=== PATIENT | male | born 1940 | race Caucasian/White ===

== ENCOUNTER 2022-01-08 14:28 | Outpatient (CLI) | payer MEDICARE, BC, SELFPAY | END 2022-01-08 14:29 | disposition home or self-care (01) | LOC: CHSLAB 14:33 | PROVIDERS: PCP Specialist; Visit Provider Specialist | DX: C44.319 Basal cell carcinoma of skin of other parts of face (principal); L85.9 Epidermal thickening, unspecified | CPT/HCPCS: 88305 ==

== ENCOUNTER 2023-02-25 10:08 | Outpatient (CLI) | payer MEDICARE, SELFPAY | END 2023-02-25 10:09 | disposition home or self-care (01) | PROVIDERS: PCP Specialist; Visit Provider Specialist | DX: C44.319 Basal cell carcinoma of skin of other parts of face (principal) | CPT/HCPCS: 88305 ==

== ENCOUNTER 2023-07-29 13:32 | Outpatient (CLI) | payer MEDICARE, SELFPAY ==
--- NOTE | ~2023-07-29 | XR_ITS ---
XR chest 2V DATE: 07/29/2023 13:50 INDICATION: Pruritus. 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 Normal heart size. No hilar or mediastinal enlargement. No pulmonary infiltrate or consoli dation, pulmonary vascular congestion or pleural effusion or pneumothorax. Severe degenerative disc disease of the lower cervical spine Diffuse idiopathic skeletal hyperostosis. IMPRESSION: Status post sternotomy No active cardiopulmonary disease Reviewed, dictated and finalized at location L.
== END 2023-07-29 13:33 | disposition home or self-care (01) ==
LOC: CHSIMG 13:36
PROVIDERS: PCP Physician Assistant; Visit Provider Specialist
DX: L29.9 Pruritus, unspecified (principal); Z98.890 Other specified postprocedural states
CPT/HCPCS: 71046

== ENCOUNTER 2023-10-10 11:23 | Outpatient (CLI) | payer MEDICARE, SELFPAY ==
--- NOTE | ~2023-10-10 | XR_ITS ---
Left Knee Technique: AP, lateral, and sunrise views were obtained. Clinical History: Osteoarthritis Findings: No fracture or dislocation is seen. Osseous alignment is anatomic. Mild tricompartmental de generative change present. Soft tissues are unremarkable. No joint effusion is seen. Impression: Mild tricompartmental degenerative change. Reviewed, dictated and finalized at location . Impression: Mild tricompartmental degenerative change.
== END 2023-10-10 11:24 | disposition home or self-care (01) ==
PROVIDERS: PCP Physician Assistant; Visit Provider Orthopaedic Surgery
DX: M17.12 Unilateral primary osteoarthritis, left knee (principal)
CPT/HCPCS: 73564

== ENCOUNTER 2024-07-09 10:28 | Outpatient (CLI) | payer MEDICARE, SELFPAY | END 2024-07-09 10:29 | disposition home or self-care (01) | PROVIDERS: PCP Physician Assistant; Visit Provider Orthopaedic Surgery | DX: M17.12 Unilateral primary osteoarthritis, left knee (principal) | CPT/HCPCS: 73564 ==

== ENCOUNTER 2024-10-12 11:03 | Outpatient (CLI) | payer MEDICARE, SELFPAY ==
--- NOTE | 2024-10-12 | S_PTH ---
PATIENT: Roel Bocanegra LOC: [facility]#:[id number] AGE/SX: 84/M ROOM: RE10/12/[address]: Ashok Jett M.D. : 1940 BED: DIS: 10/12/2024 SPEC #: [id number] RECD: 10/12/24 14:19 STATUS: BILLIE REChrissy #: [id number] MARTINEZ: 10/12/24 00:[address]: Ashok Jett DEPT: [facility] Surgical RECD BY: Jcay Dienro MLT, ([facility]) Tissues: A - Skin Bx B - Skin Bx Procedures: Hematoxylin and Eosin Stain Gross and Microscopic Level 4
--- OUTSIDE RECORDS SUMMARY | 2024-10-12 11:23 | XMS_ITS | Encounter Summary ---
Author Organization [facility] Address 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
--- OUTSIDE RECORDS SUMMARY | 2024-10-12 11:23 | XMS_ITS | Encounter Summary ---
Author Organization [employer] Address 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
--- OUTSIDE RECORDS SUMMARY | 2024-10-12 11:23 | XMS_ITS | Encounter Summary ---
Author Organization [employer] Address 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
--- OUTSIDE RECORDS SUMMARY | 2024-10-12 11:23 | XMS_ITS | Encounter Summary ---
Author Organization [facility] Address 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 Gender Identity Not on file Sexual Orientation Not on file documented as of this encounter Plan of Treatment Not on file documented as of this encounter Procedures Procedure Name Priority Date/Time Associated Diagnosis Comments CBC WITH DIFFERENTIAL Routine 02/28/2006 6:26 AM CDT CBC WITH DIFFERENTIAL Routine 02/28/2006 6:26 AM CDT PROTIME-INR Routine 02/28/2006 5:00 AM CDT CBC WITH DIFFERENTIAL Routine 02/27/2006 5:15 AM CDT CBC WITH DIFFERENTIAL Routine 02/27/2006 5:15 AM CDT PROTIME-INR Routine 02/27/2006 5:15 AM CDT BASIC METABOLIC PANEL Routine 02/27/2006 5:15 AM CDT POC GLUCOSE Routine 02/26/2006 1:20 PM CDT POC GLUCOSE Routine 02/26/2006 6:33 AM CDT PT AND APTT Routine 02/26/2006 4:25 AM CDT CBC WITH DIFFERENTIAL Routine 02/26/2006 4:25 AM CDT CBC WITH DIFFERENTIAL Routine 02/26/2006 4:25 AM CDT BASIC METABOLIC PANEL Routine 02/26/2006 4:25 AM CDT POC GLUCOSE Routine 02/25/2006 9:54 PM CDT PT AND APTT Routine 02/25/2006 7:40 PM CDT CBC WITH DIFFERENTIAL Routine 02/25/2006 7:40 PM CDT CBC WITH DIFFERENTIAL Routine 02/25/2006 7:40 PM CDT BASIC METABOLIC PANEL Routine 02/25/2006 7:40 PM CDT POC, BLOOD GASES Routine 02/25/2006 5:15 PM CDT POC GLUCOSE Routine 02/25/2006 5:13 PM CDT PT AND APTT Routine 02/25/2006 4:56 PM CDT CBC WITH DIFFERENTIAL Routine 02/25/2006 4:56 PM CDT CBC WITH DIFFERENTIAL Routine 02/25/2006 4:56 PM CDT MAGNESIUM LEVEL Routine 02/25/2006 4:56 PM CDT BASIC METABOLIC PANEL Routine 02/25/2006 4:56 PM CDT POC, BLOOD GASES Routine 02/25/2006 3:25 PM CDT POC GLUCOSE Routine 02/25/2006 3:22 PM CDT POC, BLOOD GASES Routine 02/25/2006 2:23 PM CDT HEMOGLOBIN AND HEMATOCRIT Routine 02/18/2006 3:30 PM CDT BASIC METABOLIC PANEL Routine 02/18/2006 3:30 PM CDT documented in this encounter Results * (ABNORMAL) CBC WITH DIFFERENTIAL (02/28/2006 6:26 AM CDT) NEUTROPHILS 72(H) 45 - 70 % INTERFAC E SYSTEM LYMPHOCYTES 16 16 - 45 % INTERFAC E SYSTEM MONOCYTES 11 3 - 13 % INTERFACE SYSTEM EOSINOPHILS 2 0 - 7 % INTERFAC E SYSTEM BASOPHILS 0 0 - 2 % INTERFACE SYSTEM NEUTROPHIL ABSOLUTE 7.73(H) 1.90 - 7.00 K/uL INTERFACE SYSTEM LYMPHOCYTE ABSOLUTE 1.66 0.70 - 4.50 K/uL INTERFACE SYSTEM MONOCYTE ABSOLUTE 1.15 0.10 - 1.30 K/uL INTERFACE SYSTEM EOSINOPHIL ABSOLUTE 0.18 0.00 - 0.70 K/uL INTERFACE SYSTEM BASOPHILS ABSOLUTE 0.02 0.00 - 0.20 K/uL INTERFACE SYSTEM 02/28/2006 6:26 AM CDT Ashok Tapia MD HEMATOLOGY ORDERABLES Final Result INTERFACE SYSTEM Refer to clinic/hospital department * (ABNORMAL) CBC WITH DIFFERENTIAL (02/28/2006 6:26 AM CDT) WBC 10.7(H) 4.0 - 9.8 K/uL INTERFACE SYSTEM RBC 2.82(L) 4.50 - 5.40 M/uL INTERFACE SYSTEM HEMOGLOBIN 7.8(AA) 13.6 - 16.5 g/dL INTERFACE SYSTEM Comment:Persistent abnormal result HEMATOCRIT 23.7(AA) 40.0 - 48.0 % INTERFACE SYSTEM Comment:Persistent abnormal result MCV 84.0 82.0 - 99.0 fL INTERFACE SYSTEM MCH 27.7 27.2 - 32.6 pg INTERFACE SYSTEM MCHC 32.9 31.5 - 35.5 % INTERFACE SYSTEM RDW 15.4(H) 11.5 - 14.5 % INTERFACE SYSTEM RDW-STDEV 47.4 37.1 - 48.7 fL INTERFACE SYSTEM PLATELETS 169 140 - 350 K/uL INTERFACE SYSTEM MPV 11.6 9.3 - 12.4 fL INTERFACE SYSTEM 02/28/2006 6:26 AM CDT Ashok Tapia MD HEMATOLOGY ORDERABLES Final Result Performing Organization Address [facility] Phone Number INTERFACE SYSTEM Refer to clinic/hospital department * (ABNORMAL) PROTIME-INR (02/28/2006 5:00 AM CDT) PROTIME 40.5(H) 12.7 - 15.1 Seconds INTERFACE SYSTEM INR 4.1(H) 0.9 - 1.1 INTERFACE SYSTEM Comment: INR Therapeutic Range: Adult: 2.0 - 3.0 for pulmonary embolism or prophylaxis against venous thrombosis or systemic embolization. 2.0 - 3.0 for patients with tissue heart valves. 2.5 - 3.5 for patients with mechanical heart valves or post RI. Pediatric (12 years and under): 1.5 - 3.0 Although the target range in children is not well established , INR values of 1.5 - 3.0 are recommended for most patients. Higher values have been used in children with prosthetic cardiac valves and hereditary clotting disorders. (<3 days) therapeutic ranges have not been established. 02/28/2006 5:00 AM CDT Ashok Tapia MD HEMATOLOGY ORDERABLES Final Result Performing Organization Address [facility] Phone Number INTERFACE SYSTEM Refer to clinic/hospital department * (ABNORMAL) CBC WITH DIFFERENTIAL (02/27/2006 5:15 AM CDT) NEUTROPHILS 73(H) 45 - 70 % INTERFAC E SYSTEM LYMPHOCYTES 16 16 - 45 % INTERFAC E SYSTEM MONOCYTES 11 3 - 13 % INTERFACE SYSTEM EOSINOPHILS 0 0 - 7 % INTERFAC E SYSTEM BASOPHILS 0 0 - 2 % INTERFACE SYSTEM NEUTROPHIL ABSOLUTE 9.50(H) 1.90 - 7.00 K/uL INTERFACE SYSTEM LYMPHOCYTE ABSOLUTE 2.08 0.70 - 4.50 K/uL INTERFACE SYSTEM MONOCYTE ABSOLUTE 1.44(H) 0.10 - 1.30 K/uL INTERFACE SYSTEM EOSINOPHIL ABSOLUTE 0.05 0.00 - 0.70 K/uL INTERFACE SYSTEM BASOPHILS ABSOLUTE 0.01 0.00 - 0.20 K/uL INTERFACE SYSTEM 02/27/2006 5:15 AM CDT Ashok Tapia MD HEMATOLOGY ORDERABLES Final Result Performing Organization Address [facility] de Phone Number INTERFACE SYSTEM Refer to clinic/hospital department * (ABNORMAL) CBC WITH DIFFERENTIAL (02/27/2006 5:15 AM CDT) WBC 13.1(H) 4.0 - 9.8 K/uL INTERFACE SYSTEM RBC 2.74(L) 4.50 - 5.40 M/uL INTERFACE SYSTEM HEMOGLOBIN 7.9(AA) 13.6 - 16.5 g/dL INTERFACE SYSTEM Comment: Results called to estevan at 02/27/2006 6:08 AM and read back verified. Verified by repeat analysis. HEMATOCRIT 23.3(AA) 40.0 - 48.0 % INTERFACE SYSTEM MCV 85.0 82.0 - 99.0 fL INTERFACE SYSTEM MCH 28.8 27.2 - 32.6 pg INTERFACE SYSTEM MCHC 33.9 31.5 - 35.5 % INTERFACE SYSTEM RDW 15.5(H) 11.5 - 14.5 % INTERFACE SYSTEM RDW-STDEV 47.7 37.1 - 48.7 fL INTERFACE SYSTEM PLATELETS 154 140 - 350 K/uL INTERFACE SYSTEM MPV 12.0 9.3 - 12.4 fL INTERFACE SYSTEM 02/27/2006 5:15 AM CDT Ashok Tapia MD HEMATOLOGY ORDERABLES Final Result Performing Organization Address [facility] de Phone Number INTERFACE SYSTEM Refer to clinic/hospital department * (ABNORMAL) PROTIME-INR (02/27/2006 5:15 AM CDT) PROTIME 26.0(H) 12.7 - 15.1 Seconds INTERFACE SYSTEM INR 2.3(H) 0.9 - 1.1 INTERFACE SYSTEM Comment: INR Therapeutic Range: Adult: 2.0 - 3.0 for pulmonary embolism or prophylaxis against venous thrombosis or systemic embolization. 2.0 - 3.0 for patients with tissue heart valves. 2.5 - 3.5 for patients with mechanical heart valves or post RI. Pediatric (12 years and under): 1.5 - 3.0 Although the target range in children is not well established , INR values of 1.5 - 3.0 are recommended for most patients. Higher values have been used in children with prosthetic cardiac valves and hereditary clotting disorders. (<3 days) therapeutic ranges have not been established. 02/27/2006 5:15 AM CDT us Ashok Tapia MD HEMATOLOGY ORDERABLES Final Result Performing Organization Address [facility] Phone Number INTERFACE SYSTEM Refer to clinic/hospital department * (ABNORMAL) BASIC METABOLIC PANEL (02/27/2006 5:15 AM CDT) GLUCOSE 120(H) 65 - 99 mg/dL INTERFACE SYSTEM CREATININE 1.6(H) 0.5 - 1.3 mg/dL INTERFACE SYSTEM CALCIUM 7.8(L) 8.4 - 10.2 mg/dL INTERFACE SYSTEM BUN 28(H) 6 - 20 mg/dL INTERFACE SYSTEM SODIUM 133(L) 135 - 145 mmol/L INTERFACE SYSTEM POTASSIUM 3.9 3.5 - 4.9 mmol/L INTERFACE SYSTEM CHLORIDE 101 96 - 108 mmol/L INTERFACE SYSTEM CO2 27 22 - 30 mmol/L INTERFACE SYSTEM 02/27/2006 5:15 AM CDT Ashok Tapia MD CHEMISTRY ORDERABLES Final Result Performing Organization Address [facility] de Phone Number INTERFACE SYSTEM Refer to clinic/hospital department * (ABNORMAL) POC GLUCOSE (02/26/2006 1:20 PM CDT) GLUCOSE POC 167(H) 65 - 109 mg/dL INTERFACE SYSTEM 02/26/2006 1:20 PM CDT us Ashok Tapia MD POINT OF CARE TESTING Final Result Performing Organization Address [facility] de Phone Number INTERFACE SYSTEM Refer to clinic/hospital department * (ABNORMAL) POC GLUCOSE (02/26/2006 6:33 AM CDT) GLUCOSE POC 192(H) 65 - 109 mg/dL INTERFACE SYSTEM 02/26/2006 6:33 AM CDT Ashok Tapia MD POINT OF CARE TESTING Final Result Performing Organization Address [facility] Phone Number INTERFACE SYSTEM Refer to clinic/hospital department * (ABNORMAL) CBC WITH DIFFERENTIAL (02/26/2006 4:25 AM CDT) NEUTROPHILS 81(H) 45 - 70 % INTERFAC E SYSTEM LYMPHOCYTES 9(L) 16 - 45 % INTERFAC E SYSTEM MONOCYTES 10 3 - 13 % INTERFACE SYSTEM EOSINOPHILS 0 0 - 7 % INTERFAC E SYSTEM BASOPHILS 0 0 - 2 % INTERFACE SYSTEM NEUTROPHIL ABSOLUTE 9.26(H) 1.90 - 7.00 K/uL INTERFACE SYSTEM LYMPHOCYTE ABSOLUTE 1.00 0.70 - 4.50 K/uL INTERFACE SYSTEM MONOCYTE ABSOLUTE 1.10 0.10 - 1.30 K/uL INTERFACE SYSTEM EOSINOPHIL ABSOLUTE 0.00 0.00 - 0.70 K/uL INTERFACE SYSTEM BASOPHILS ABSOLUTE 0.01 0.00 - 0.20 K/uL INTERFACE SYSTEM 02/26/2006 4:25 AM CDT Ashok Tapia MD HEMATOLOGY ORDERABLES Final Result Performing Organization Address [facility] Phone Number INTERFACE SYSTEM Refer to clinic/hospital department * (ABNORMAL) CBC WITH DIFFERENTIAL (02/26/2006 4:25 AM CDT) WBC 11.4(H) 4.0 - 9.8 K/uL INTERFACE SYSTEM RBC 3.11(L) 4.50 - 5.40 M/uL INTERFACE SYSTEM HEMOGLOBIN 8.8(L) 13.6 - 16.5 g/dL INTERFACE SYSTEM HEMATOCRIT 26.6(L) 40.0 - 48.0 % INTERFACE SYSTEM MCV 85.5 82.0 - 99.0 fL INTERFACE SYSTEM MCH 28.3 27.2 - 32.6 pg INTERFACE SYSTEM MCHC 33.1 31.5 - 35.5 % INTERFACE SYSTEM RDW 15.0(H) 11.5 - 14.5 % INTERFACE SYSTEM RDW-STDEV 46.3 37.1 - 48.7 fL INTERFACE SYSTEM PLATELETS 161 140 - 350 K/uL INTERFACE SYSTEM MPV 11.3 9.3 - 12.4 fL INTERFACE SYSTEM 02/26/2006 4:25 AM CDT Ashok Tapia MD HEMATOLOGY ORDERABLES Final Result Performing Organization Address [facility] Phone Number INTERFACE SYSTEM Refer to clinic/hospital department * (ABNORMAL) BASIC METABOLIC PANEL (02/26/2006 4:25 AM CDT) GLUCOSE 156(H) 65 - 99 mg/dL INTERFACE SYSTEM CREATININE 1.2 0.5 - 1.3 mg/dL INTERFACE SYSTEM CALCIUM 7.8(L) 8.4 - 10.2 mg/dL INTERFACE SYSTEM BUN 21(H) 6 - 20 mg/dL INTERFACE SYSTEM SODIUM 137 135 - 145 mmol/L INTERFACE SYSTEM POTASSIUM 4.5 3.5 - 4.9 mmol/L INTERFACE SYSTEM CHLORIDE 107 96 - 108 mmol/L INTERFACE SYSTEM CO2 25 22 - 30 mmol/L INTERFACE SYSTEM 02/26/2006 4:25 AM CDT Ashok Tapia MD CHEMISTRY ORDERABLES Final Result Performing Organization Address [facility] Phone Number INTERFACE SYSTEM Refer to clinic/hospital department * (ABNORMAL) PT AND APTT (02/26/2006 4:25 AM CDT) PTT 28.6 24.4 - 36.4 Seconds INTERFACE SYSTEM Comment: PTT Therapeutic Range: Heparin Level PTT (seconds) <0.10 units/mL <53 0.10 - 0.30 units/mL 53 - 67 0.30 - 0.70 units/mL* 67 - 95* 0.70 - 1.00 units/mL 95 - 116 *corresponds to therapeutic range for unfractionated heparin PROTIME 15.8(H) 12.7 - 15.1 Seconds INTERFACE SYSTEM INR 1.2(H) 0.9 - 1.1 INTERFACE SYSTEM Comment: INR Therapeutic Range: Adult: 2.0 - 3.0 for pulmonary embolism or prophylaxis against venous thrombosis or systemic embolization. 2.0 - 3.0 for patients with tissue heart valves. 2.5 - 3.5 for patients with mechanical heart valves or post RI. Pediatric (12 years and under): 1.5 - 3.0 Although the target range in children is not well established , INR values of 1.5 - 3.0 are recommended for most patients. Higher values have been used in children with prosthetic cardiac valves and hereditary clotting disorders. (<3 days) therapeutic ranges have not been established. 02/26/2006 4:25 AM CDT Ashok Tapia MD HEMATOLOGY ORDERABLES Final Result Performing Organization Address [facility] Phone Number INTERFACE SYSTEM Refer to clinic/hospital department * (ABNORMAL) POC GLUCOSE (02/25/2006 9:54 PM CDT) GLUCOSE POC 143(H) 65 - 109 mg/dL INTERFACE SYSTEM 02/25/2006 9:54 PM CDT Ashok Tapia MD POINT OF CARE TESTING Final Result Performing Organization Address [facility] Phone Number INTERFACE SYSTEM Refer to clinic/hospital department * (ABNORMAL) CBC WITH DIFFERENTIAL (02/25/2006 7:40 PM CDT) NEUTROPHILS 88(H) 45 - 70 % INTERFAC E SYSTEM LYMPHOCYTES 6(L) 16 - 45 % INTERFAC E SYSTEM MONOCYTES 7 3 - 13 % INTERFACE SYSTEM EOSINOPHILS 0 0 - 7 % INTERFAC E SYSTEM BASOPHILS 0 0 - 2 % INTERFACE SYSTEM NEUTROPHIL ABSOLUTE 14.18(H) 1.90 - 7.00 K/uL INTERFACE SYSTEM LYMPHOCYTE ABSOLUTE 0.94 0.70 - 4.50 K/uL INTERFACE SYSTEM MONOCYTE ABSOLUTE 1.06 0.10 - 1.30 K/uL INTERFACE SYSTEM EOSINOPHIL ABSOLUTE 0.00 0.00 - 0.70 K/uL INTERFACE SYSTEM BASOPHILS ABSOLUTE 0.01 0.00 - 0.20 K/uL INTERFACE SYSTEM 02/25/2006 7:40 PM CDT Ashok Tapia MD HEMATOLOGY ORDERABLES Final Result Performing Organization Address [facility] de Phone Number INTERFACE SYSTEM Refer to clinic/hospital department * (ABNORMAL) CBC WITH DIFFERENTIAL (02/25/2006 7:40 PM CDT) WBC 16.2(H) 4.0 - 9.8 K/uL INTERFACE SYSTEM RBC 3.45(L) 4.50 - 5.40 M/uL INTERFACE SYSTEM HEMOGLOBIN 9.6(L) 13.6 - 16.5 g/dL INTERFACE SYSTEM HEMATOCRIT 29.4(L) 40.0 - 48.0 % INTERFACE SYSTEM MCV 85.2 82.0 - 99.0 fL INTERFACE SYSTEM MCH 27.8 27.2 - 32.6 pg INTERFACE SYSTEM MCHC 32.7 31.5 - 35.5 % INTERFACE SYSTEM RDW 14.8(H) 11.5 - 14.5 % INTERFACE SYSTEM RDW-STDEV 46.1 37.1 - 48.7 fL INTERFACE SYSTEM PLATELETS 166 140 - 350 K/uL INTERFACE SYSTEM MPV 11.4 9.3 - 12.4 fL INTERFACE SYSTEM 02/25/2006 7:40 PM CDT Ashok Tapia MD HEMATOLOGY ORDERABLES Final Result Performing Organization Address [facility] Phone Number INTERFACE SYSTEM Refer to clinic/hospital department * (ABNORMAL) BASIC METABOLIC PANEL (02/25/2006 7:40 PM CDT) GLUCOSE 152(H) 65 - 99 mg/dL INTERFACE SYSTEM CREATININE 1.1 0.5 - 1.3 mg/dL INTERFACE SYSTEM CALCIUM 8.1(L) 8.4 - 10.2 mg/dL INTERFACE SYSTEM BUN 18 6 - 20 mg/dL INTERFACE SYSTEM SODIUM 141 135 - 145 mmol/L INTERFACE SYSTEM POTASSIUM 4.5 3.5 - 4.9 mmol/L INTERFACE SYSTEM CHLORIDE 109(H) 96 - 108 mmol/L INTERFACE SYSTEM CO2 24 22 - 30 mmol/L INTERFACE SYSTEM 02/25/2006 7:40 PM CDT Ashok Tapia MD CHEMISTRY ORDERABLES Final Result Performing Organization Address [facility] de Phone Number INTERFACE SYSTEM Refer to clinic/hospital department * PT AND APTT (02/25/2006 7:40 PM CDT) PROTIME 15.0 12.7 - 15.1 Seconds INTERFACE SYSTEM INR 1.1 0.9 - 1.1 INTERFACE SYSTEM Comment: INR Therapeutic Range: Adult: 2.0 - 3.0 for pulmonary embolism or prophylaxis against venous thrombosis or systemic embolization. 2.0 - 3.0 for patients with tissue heart valves. 2.5 - 3.5 for patients with mechanical heart valves or post RI. Pediatric (12 years and under): 1.5 - 3.0 Although the target range in children is not well established , INR values of 1.5 - 3.0 are recommended for most patients. Higher values have been used in children with prosthetic cardiac valves and hereditary clotting disorders. (<3 days) therapeutic ranges have not been established. PTT 29.8 24.4 - 36.4 Seconds INTERFACE SYSTEM Comment: PTT Therapeutic Range: Heparin Level PTT (seconds) <0.10 units/mL <53 0.10 - 0.30 units/mL 53 - 67 0.30 - 0.70 units/mL* 67 - 95* 0.70 - 1.00 units/mL 95 - 116 *corresponds to therapeutic range for unfractionated heparin 02/25/2006 7:40 PM CDT Ashok Tapia MD HEMATOLOGY ORDERABLES Final Result Performing Organization Address [facility] Phone Number INTERFACE SYSTEM Refer to clinic/hospital department * (ABNORMAL) POC RT, BLOOD GASES (02/25/2006 5:15 PM CDT) PH ARTERIAL 7.35(L) 7.35 - 7.45 INTERFACE SYSTEM PCO2 ARTERIAL 44 35 - 48 mm Hg INTERFACE SYSTEM PO2 ARTERIAL 76(L) 83 - 108 mm Hg INTERFACE SYSTEM O2 SAT EST ABG POC 94(L) 95 - 99 % INTERFACE SYSTEM PATIENT'S TEMPERATURE 37.0 Degree C INTERFACE SYSTEM BASE EXCESS ABG -1.3 -2.0 - 3.0 mmol/L INTERFACE SYSTEM HCO3 ARTERIAL 24 22 - 26 mmol/L INTERFACE SYSTEM SODIUM POC 138 135 - 145 mmol/L INTERFACE SYSTEM POTASSIUM POC 4.3 3.5 - 4.9 mmol/L INTERFACE SYSTEM CALICUM IONIZED, WHOLE BLOOD 4.97 4.76 - 5.16 mg/dL INTERFACE SYSTEM HEMATOCRIT POC 27.0(L) 40.0 - 48.0 % INTERFACE SYSTEM COMMENT, GASES POC NOTIFIED INTERFACE SYSTEM 02/25/2006 5:15 PM CDT Ashok Tapia MD CHEMISTRY ORDERABLES Final Result Performing Organization Address [facility] Phone Number INTERFACE SYSTEM Refer to clinic/hospital department * (ABNORMAL) POC GLUCOSE (02/25/2006 5:13 PM CDT) GLUCOSE POC 133(H) 65 - 109 mg/dL INTERFACE SYSTEM 02/25/2006 5:13 PM CDT Ashok Tapia MD POINT OF CARE TESTING Final Result Performing Organization Address [facility] Phone Number INTERFACE SYSTEM Refer to clinic/hospital department * (ABNORMAL) CBC WITH DIFFERENTIAL (02/25/2006 4:56 PM CDT) NEUTROPHILS 80(H) 45 - 70 % INTERFAC E SYSTEM LYMPHOCYTES 12(L) 16 - 45 % INTERFAC E SYSTEM MONOCYTES 7 3 - 13 % INTERFACE SYSTEM EOSINOPHILS 1 0 - 7 % INTERFAC E SYSTEM BASOPHILS 0 0 - 2 % INTERFACE SYSTEM NEUTROPHIL ABSOLUTE 9.95(H) 1.90 - 7.00 K/uL INTERFACE SYSTEM LYMPHOCYTE ABSOLUTE 1.43 0.70 - 4.50 K/uL INTERFACE SYSTEM MONOCYTE ABSOLUTE 0.92 0.10 - 1.30 K/uL INTERFACE SYSTEM EOSINOPHIL ABSOLUTE 0.06 0.00 - 0.70 K/uL INTERFACE SYSTEM BASOPHILS ABSOLUTE 0.01 0.00 - 0.20 K/uL INTERFACE SYSTEM 02/25/2006 4:56 PM CDT Ashok Tapia MD HEMATOLOGY ORDERABLES Final Result Performing Organization Address [facility] Phone Number INTERFACE SYSTEM Refer to clinic/hospital department * (ABNORMAL) CBC WITH DIFFERENTIAL (02/25/2006 4:56 PM CDT) WBC 12.4(H) 4.0 - 9.8 K/uL INTERFACE SYSTEM RBC 3.31(L) 4.50 - 5.40 M/uL INTERFACE SYSTEM HEMOGLOBIN 9.5(L) 13.6 - 16.5 g/dL INTERFACE SYSTEM HEMATOCRIT 28.4(L) 40.0 - 48.0 % INTERFACE SYSTEM MCV 85.8 82.0 - 99.0 fL INTERFACE SYSTEM MCH 28.7 27.2 - 32.6 pg INTERFACE SYSTEM MCHC 33.5 31.5 - 35.5 % INTERFACE SYSTEM RDW 15.0(H) 11.5 - 14.5 % INTERFACE SYSTEM RDW-STDEV 47.0 37.1 - 48.7 fL INTERFACE SYSTEM PLATELETS 153 140 - 350 K/uL INTERFACE SYSTEM MPV 11.4 9.3 - 12.4 fL INTERFACE SYSTEM 02/25/2006 4:56 PM CDT us Ashok Tapia MD HEMATOLOGY ORDERABLES Final Result INTERFACE SYSTEM Refer to clinic/hospital department * (ABNORMAL) PT AND APTT (02/25/2006 4:56 PM CDT) PROTIME 16.4(H) 12.7 - 15.1 Seconds INTERFACE SYSTEM INR 1.2(H) 0.9 - 1.1 INTERFACE SYSTEM Comment: INR Therapeutic Range: Adult: 2.0 - 3.0 for pulmonary embolism or prophylaxis against venous thrombosis or systemic embolization. 2.0 - 3.0 for patients with tissue heart valves. 2.5 - 3.5 for patients with mechanical heart valves or post RI. Pediatric (12 years and under): 1.5 - 3.0 Although the target range in children is not well established , INR values of 1.5 - 3.0 are recommended for most patients. Higher values have been used in children with prosthetic cardiac valves and hereditary clotting disorders. (<3 days) therapeutic ranges have not been established. PTT 99.9(AA) 24.4 - 36.4 Seconds INTERFACE SYSTEM Comment: PTT Therapeutic Range: Heparin Level PTT (seconds) <0.10 units/mL <53 0.10 - 0.30 units/mL 53 - 67 0.30 - 0.70 units/mL* 67 - 95* 0.70 - 1.00 units/mL 95 - 116 *corresponds to therapeutic range for unfractionated heparin Tried to call critical result. Patient listed in computer as being in [facility] 1001. Patient unknown at this listing. Called PACU. No answer. Called room control. They have listing as OR 1001. Finally paged Dr Tapia. Results given to Dr Tapia at 02/25/2006 6:37 PM 02/25/2006 4:56 PM CDT Ashok Tapia MD HEMATOLOGY ORDERABLES Final Result Performing Organization Address [facility] Phone Number INTERFACE SYSTEM Refer to clinic/hospital department * MAGNESIUM LEVEL (02/25/2006 4:56 PM CDT) Pathologist [facility] MAGNESIUM 1.7 1.5 - 2.5 mg/dL INTERFACE SYSTEM 02/25/2006 4:56 PM CDT Ashok Tapia MD CHEMISTRY ORDERABLES Final Result Performing Organization Address [facility] Phone Number INTERFACE SYSTEM Refer to clinic/hospital department * (ABNORMAL) BASIC METABOLIC PANEL (02/25/2006 4:56 PM CDT) GLUCOSE 118(H) 65 - 99 mg/dL INTERFACE SYSTEM CREATININE 1.1 0.5 - 1.3 mg/dL INTERFACE SYSTEM CALCIUM 7.8(L) 8.4 - 10.2 mg/dL INTERFACE SYSTEM BUN 17 6 - 20 mg/dL INTERFACE SYSTEM SODIUM 144 135 - 145 mmol/L INTERFACE SYSTEM POTASSIUM 4.4 3.5 - 4.9 mmol/L INTERFACE SYSTEM CHLORIDE 113(H) 96 - 108 mmol/L INTERFACE SYSTEM CO2 25 22 - 30 mmol/L INTERFACE SYSTEM 02/25/2006 4:56 PM CDT Ashok Tapia MD CHEMISTRY ORDERABLES Final Result Performing Organization Address [facility] Phone Number INTERFACE SYSTEM Refer to clinic/hospital department * (ABNORMAL) POC RT, BLOOD GASES (02/25/2006 3:25 PM CDT) PH ARTERIAL 7.45 7.35 - 7.45 INTERFACE SYSTEM PCO2 ARTERIAL 37 35 - 48 mm Hg INTERFACE SYSTEM PO2 ARTERIAL 316(H) 83 - 108 mm Hg INTERFACE SYSTEM O2 SAT EST ABG POC 100(H) 95 - 99 % INTERFACE SYSTEM PATIENT'S TEMPERATURE 37.0 Degree C INTERFACE SYSTEM BASE EXCESS ABG 1.7 -2.0 - 3.0 mmol/L INTERFACE SYSTEM HCO3 ARTERIAL 26 22 - 26 mmol/L INTERFACE SYSTEM SODIUM POC 135 135 - 145 mmol/L INTERFACE SYSTEM POTASSIUM POC 4.6 3.5 - 4.9 mmol/L INTERFACE SYSTEM CALICUM IONIZED, WHOLE BLOOD 5.13 4.76 - 5.16 mg/dL INTERFACE SYSTEM HEMATOCRIT POC 30.0(L) 40.0 - 48.0 % INTERFACE SYSTEM COMMENT, GASES POC DR NOTIFIED INTERFACE SYSTEM 02/25/2006 3:25 PM CDT us Ashok Tapia MD CHEMISTRY ORDERABLES Final Result Performing Organization Address [facility] Phone Number INTERFACE SYSTEM Refer to clinic/hospital department * (ABNORMAL) POC GLUCOSE (02/25/2006 3:22 PM CDT) GLUCOSE POC 112(H) 65 - 109 mg/dL INTERFACE SYSTEM 02/25/2006 3:22 PM CDT us Ashok Tapia MD POINT OF CARE TESTING Final Result Performing Organization Address [facility] Phone Number INTERFACE SYSTEM Refer to clinic/hospital department * (ABNORMAL) POC RT, BLOOD GASES (02/25/2006 2:23 PM CDT) PH ARTERIAL 7.36 7.35 - 7.45 INTERFACE SYSTEM PCO2 ARTERIAL 47 35 - 48 mm Hg INTERFACE SYSTEM PO2 ARTERIAL 338(H) 83 - 108 mm Hg INTERFACE SYSTEM O2 SAT EST ABG POC 100(H) 95 - 99 % INTERFACE SYSTEM PATIENT'S TEMPERATURE 37.0 Degree C INTERFACE SYSTEM BASE EXCESS ABG 0.8 -2.0 - 3.0 mmol/L INTERFACE SYSTEM HCO3 ARTERIAL 27(H) 22 - 26 mmol/L INTERFACE SYSTEM SODIUM POC 136 135 - 145 mmol/L INTERFACE SYSTEM POTASSIUM POC 4.6 3.5 - 4.9 mmol/L INTERFACE SYSTEM CALICUM IONIZED, WHOLE BLOOD 5.49(H) 4.76 - 5.16 mg/dL INTERFACE SYSTEM HEMATOCRIT POC 31.0(L) 40.0 - 48.0 % INTERFACE SYSTEM COMMENT, GASES POC DR NOTIFIED INTERFACE SYSTEM 02/25/2006 2:23 PM CDT Ashok Tapia MD CHEMISTRY ORDERABLES Final Result Performing Organization Address [facility] Phone Number INTERFACE SYSTEM Refer to clinic/hospital department * BASIC METABOLIC PANEL (02/18/2006 3:30 PM CDT) GLUCOSE 92 65 - 99 mg/dL INTERFACE SYSTEM CREATININE 1.3 0.5 - 1.3 mg/dL INTERFACE SYSTEM CALCIUM 9.2 8.4 - 10.2 mg/dL INTERFACE SYSTEM BUN 16 6 - 20 mg/dL INTERFACE SYSTEM SODIUM 142 135 - 145 mmol/L INTERFACE SYSTEM POTASSIUM 4.9 3.5 - 4.9 mmol/L INTERFACE SYSTEM CHLORIDE 107 96 - 108 mmol/L INTERFACE SYSTEM CO2 27 22 - 30 mmol/L INTERFACE SYSTEM 02/18/2006 3:30 PM CDT Result [facility] Ashok Tapia MD CHEMISTRY ORDERABLES Final Result Performing Organization Address [facility] Phone Number INTERFACE SYSTEM Refer to clinic/hospital department * (ABNORMAL) HEMOGLOBIN AND HEMATOCRIT (02/18/2006 3:30 PM CDT) HEMOGLOBIN 12.7(L) 13.6 - 16.5 g/dL INTERFACE SYSTEM HEMATOCRIT 40.0 40.0 - 48.0 % INTERFACE SYSTEM 02/18/2006 3:30 PM CDT Ashok Tapia MD HEMATOLOGY ORDERABLES Final Result Performing Organization Address [facility] Phone Number INTERFACE SYSTEM Refer to clinic/hospital department documented in this encounter Visit Diagnoses Diagnosis 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
--- OUTSIDE RECORDS SUMMARY | 2024-10-12 11:23 | XMS_ITS | Encounter Summary ---
Author Organization [facility] Address [address] Weber: Epic Prelude ADT RUPESH BHATIA [address] Care Team Providers Care Brake Operator Heavy Duty Name Role Phone Luis Ellsworth MD Primary Care Provider Zayda xiong Encounter Details Date Type Department Care Team (Late st Contact Info) Description 03/18/2007 Outpatient Historical Pedro Simon MD NO ADDRESS ON FILE Social History Tobacco Use Types Packs/Day Years Used Date Smoking Tobacco: Never Assessed Sex and Gender Information Value Date Recorded Sex Assigned at Not on file Legal Sex Male 5:25 AM CAM SPECIALIST Gender Identity Not on file Sexual Orientation Not on file documented as of this encounter Plan of Treatment Not on file documented as of this encounter Visit Diagnoses Not on filedocumented in this encounter Care Teams Brake Operator Heavy Duty Relationship Specialty Start Date End Date Luis Ellsworth MD PCP - General 04/28/15 documented as of this encounter
--- OUTSIDE RECORDS SUMMARY | 2024-10-12 11:23 | XMS_ITS | Clinical Summary ---
Author Organization [facility] Address [address] [facility] [place] [address] Phone Care Team Providers Care Information Technology Instructor Name Role Phone Luis Ellsworth MD Primary Care Provider Luis Churchill DPM Unavailable [phone] Allergies Active Allergy Reactions Criticality Noted Date Comments Daptomycin Rash 09/21/2009 Other Rash 09/21/2009 Loban Rifampin Unknown 11/14/2016 Medications warfarin (COUMADIN) 3 MG Tablet Take 3 mg by mouth daily. Active rosuvastatin (CRESTOR) 40 MG Tablet Take 40 mg by mouth daily. Active zolpidem (AMBIEN) 10 MG Tablet Take 10 mg by mouth nightly as needed. Active bisoprolol-hydr oCHLOROthiazide (ZIAC) 5-6.25 MG Tablet Take 1 Tab by mouth daily. Active amLODIPine (NORVASC) 2.5 MG Tablet Take 2.5 mg by mouth daily. Active quinapril (ACCUPRIL) 40 MG Tablet Take 40 mg by mouth every evening. Active Omeprazole 20 MG Tablet Delayed Response Take 1 Tab by mouth 2 times daily. Active latanoprost (XALATAN) 0.005 % Solution Place 1 Drop in affected eye(s) nightly. Active MULTIPLE VITAMINS PO Take 1 Tab by mouth daily. Active acetaminophen (TYLENOL) 325 MG Tablet Take 325 mg by mouth as needed. Active Active Problems Problem Noted Date Diagnosed Date Dermatophytosis of nail 11/14/2016 Immunizations Immunization Administration Dates Next Due Covid-19, Mrna, Lnp-s, PF, 1 00 mcg/0.5 mL Dose (Moderna) 06/21/2020,05/23/2020 Family History Relation Name Status Comments Father Mother Social History Tobacco Use Types Packs/Day Years Used Date Smoking Tobacco: Former Cigarettes 2 20 Smokeless Tobacco: Never Tobacco Cessation:Counseling Given: No Alcohol Use Standard Drinks/Week Comments No 0 (1 standard drink = 0.6 oz pur e alcohol) quit 40 years ago Sex and Gender Information Value Date Recorded Sex Assigned at Not on file Legal Sex Male 1:27 PM CDT Gender Identity Not on file Sexual Orientation Not on file Last Filed Vital Signs Vital Sign Reading Time Taken Comments Blood Pressure 138/64 11/14/2016 1:57 PM CDT Pulse 55 11/14/2016 1:57 PM CDT Temperature 36.4 C (97.6 F) 11/14/2016 1:57 PM CDT Respiratory Rate 18 11/14/2016 1:57 PM CDT Oxygen Saturation 97% 11/14/2016 1:57 PM CDT Inhaled Oxygen Concentration - - Weight 104.3 kg (230 lb) 11/14/2016 1:57 PM CDT Height 180.3 cm (5' 11) 11/14/2016 1:57 PM CDT Body Mass Index 32.08 11/14/2016 1:57 PM CDT Plan of Treatment Health Maintenance Due Date Last Done Comments Hepatitis C Virus (HCV) Screening 1940 TdaP Immunization 1940 Zoster Immunization (1 of 2) 01/14/1992 Respiratory Syncytial Virus (RSV) Immunization (Adult) (1 - 1-dose 75+ series) 2017 Influenza Immunization (#1) 01/11/202402/09, 02/14/2021, 02/10/2020, Additional history exists SARS-COV-2 Immunization ( season) 2024 10/16/2021, 03/27/2021, 06/21/2020, Additional history exists Pneumococcal Immunization (50+ years) Completed 02/28/2015, 02/23/2013 Pneumococcal Immunization Combined Discontinued 02/28/2015, 02/23/2013 DTaP/Tdap/Td Immunization Discontinued 02/10/2020, Hepatitis B Immunization Aged Out No longer eligible based on patient's age to complete this topic Meningococcal Immunization (ACWY) Aged Out No longer eligible based on patient's age to complete this topic Rotavirus Immunization Aged Out No lo nger eligible based on patient's age to complete this topic Insurance [employer] [facility] MEDICARE Care Teams Information Technology Instructor Relationship Specialty Start Date End Date Luis Ellsworth MD [address] [place] [address] [address] [place] [address] PCP - General Internal Medicine 11/14/16 Luis Rodriguez DPM [address] [place] [address] Consulting Physician Podiatry 11/14/16
--- OUTSIDE RECORDS SUMMARY | 2024-10-12 11:23 | XMS_ITS | Encounter Summary ---
Author Organization [employer] Address 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 [facility] [address] [place] [address] [email or web address] Peripheral Arterial Study Patient: Roel Bocanegra Study ID: BLOOD FLOW STUDY Gender: M : 1940 Age: 67 years Race: 1 Room: Bed: Height: Study Date: August 31, 2007 Patient status: Outpatient Weight: Access. #: [id number] POC: Justice Of The Peace: Eduard Ordering: Jani Attending MD: Jani Admitting MD: Jani SUMMARY: Patent graft of right lower extremity with slightly elevated velocities in the common femoral artery. COMPARISONS Comparison is made with a previous study of March 09, 2007 with a decrease in velocity of the right common femoral artery. HISTORY AND INDICATIONS: INDICATIONS: Graft surveillance. SOFTWARE QUALITY ANALYST - MANAGER CASINO PTFE HISTORY: Risk factors and comorbidity: No history of diabetes. Hypercholesterolemia. Hypertension. History of cigarette smoking, patient quit. Post surgery. PROCEDURE INFORMATION: PROCEDURE PERFORMED: Complete color duplex study with imaging and spectral analysis was performed on the right lower extremity arterial system. GRAFT VELOCITIES/COMMENTS Velocity Type of Graft R Inflow 311 cm/sec PTFE R Prox anas 151 cm/sec -- R Zone 1 69 cm/sec -- Rt Zone 2 79 cm/sec -- R Zone 3 66 cm/sec -- R Zone 4 41 cm/sec -- R Distal Anas 51 cm/sec -- R Outflow 78 cm/sec -- Prepared and Electronically Authenticated Albert Denis MD Confirmed August 31, 2007 18:02:46 Procedure Note Provider, Historical - 08/31/2007 Please type in written order in Special Instructions field. [facility] [address] [place] [address] [email or web address] Noninvasive Vascular Lab Peripheral Arterial Study Patient: Roel Bocanegra Study ID: BLOOD FLOW STUDY Gender: M : 1940 Age: 67 years Race: 1 Room: Bed: Height: Study Date: August 31, 2007 Patient status: Outpatient Weight: Access. #: [id number] POC: Justice Of The Peace: Eduard Ordering: Jani Attending MD: Jani Admitting MD: Jani SUMMARY: Patent graft of right lower extremity with slightly elevated velocities inthe common femoral artery. COMPARISONS Comparison is made with a previous study of March 09, 2007 with adecrease in velocity of the right common femoral artery. HISTORY AND INDICATIONS: INDICATIONS: Graft surveillance. SOFTWARE QUALITY ANALYST - MANAGER CASINO PTFE HISTORY: Risk factors and comorbidity: No history of diabetes.Hypercholesterolemia. Hypertension. History of cigarette smoking, patient quit. Post surgery. PROCEDURE INFORMATION: PROCEDURE PERFORMED: Complete color duplex study with imaging and spectral analysis wasperformed on the right lower extremity arterial system. GRAFT VELOCITIES/COMMENTS Velocity Type of Graft R Inflow 311 cm/sec PTFE R Prox anas 151 cm/sec -- R Zone 1 69 cm/sec -- Rt Zone 2 79 cm/sec -- R Zone 3 66 cm/sec -- R Zone 4 41 cm/sec -- R Distal Anas 51 cm/sec -- R Outflow 78 cm/sec -- Prepared and Electronically Authenticated Albert Denis MD Confirmed August 31, 2007 18:02:46 us Ashok Tapia MD ORDERABLES Final Resul t documented in this encounter Visit Diagnoses Diagnosis Peripheral vascular disease, unspecified documented in this encounter Care Teams Community Health Consultant Relationship Specialty Start Date End Date Luis Ellsworth MD PCP - General 04/28/15 documented as of this encounter
--- OUTSIDE RECORDS SUMMARY | 2024-10-12 11:23 | XMS_ITS | Encounter Summary ---
Author Organization [facility] Address [address] [place] [address] Care Team Providers Care Concrete Wall Grinder Operator Name Role Phone Luis Ellsworth MD Primary Care Provider Zayda xiong Encounter Details Date Type Department Care Team (Late st Contact Info) Description 02/13/2006 Outpatient Historical [facility] Supp Svcs Blood Flow [address] [place] [address] Ashok Tapia MD NO ADDRESS ON FILE Social History Tobacco Use Types Packs/Day Years Used Date Smoking Tobacco: Never Assessed Sex and Gender Information Value Date Recorded Sex Assigned at Not on file Legal Sex Male 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
--- OUTSIDE RECORDS SUMMARY | 2024-10-12 11:23 | XMS_ITS | Encounter Summary ---
Author Organization [facility] Address [address] [place] [address] Care Team Providers Care Office Manager Executive Assistant Name Role Phone Juan Ching CHASE Primary Care Provider Clark Dunham MD Unavailable [phone] Ana Paula Schwartz NP Unavailable [phone] Woodrow Mayes MD Unavailable [phone] Mega Villagomez MD Unavailable [phone] Maxwell Acuña MD Unavailable [phone] Cezar Guillen MD Unavailable [phone] Ashok Walters MD Unavailable [phone] Monica Doan MD Unavailable Encounter Details Date Type Department Care Team (Late st Contact Info) Description 09/13/2024 [facility] Post Discharge Follow up phone call [facility] [address] [place] [address] Johnna Amaya Social History Tobacco Use Types Packs/Day Years Used Date Smoking Tobacco: Former Cigarettes 1 14 1 - 1973 Smokeless Tobacco: Never Alcohol Use Standard Drinks/Week Comments No 0 (1 standard drink = 0.6 oz pur e alcohol) Social Connection and Isolat ion Panel [NHANES] Answer Date Recorded In a typical week, how many times do you talk on the phone with family, friends, or neighbors? Twice a week 12/21/2020 How often do you get togethe r with friends or relatives? More than three times a week 12/21/2020 How often do you attend chur ch or gnosticist services? More than 4 times per year 12/21/2020 Do you belong to any clubs o r organizations such as restorationism groups, unions, fraternal or athletic groups, or school groups? Yes 12/21/2020 How often do you attend meet ings of the clubs or organizations you belong to? 1 to 4 times per year 12/21/2020 Are you , , di vorced, , never , or living with a partner? 12/21/2020 AUDIT-C Answer Date Recorded Q1: How often do you have a drink containing alcohol? Never 09/07/2024 Q2: How many drinks containi ng alcohol do you have on a typical day when you are drinking? Patient does not drink Q3: How often do you have si x or more drinks on one occasion? Never 09/07/2024 Overall Financial Resource Strain (CARDIA) Answe r Date Recorded How hard is it for you to pa y for the very basics like food, housing, medical care, and heating? Not very hard 12/21/2020 PHQ-2 Answer Date Recorded PHQ-2 Total Score (If total score is 3 or more points, staff should administer the PHQ-9) 0 08/30/2024 PRAPARE - Transportation Answer Date Re corded In the past 12 months, has l ack of transportation kept you from medical appointments or from getting medications? No 12/10 In the past 12 months, has l ack of transportation kept you from meetings, work, or from getting things needed for daily living? No 12/21/2020 Housing Stability Vital Sign Answer Claudy e Recorded In the last 12 months, was t here a time when you were not able to pay the mortgage or rent on time? No 12/21/2020 In the last 12 months, how many places have you lived? 1 12/21/2020 In the last 12 months, was t here a time when you did not have a steady place to sleep or slept in a half-way (including now)? No 12/21/2020 Personal Safety Answer Date Recorded Have you ever been in or are you currently in a harmful physical or emotional relationship or is someone making you feel afraid or unsafe? 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 Author ACO SW Goal - Patient will be able to safely move about their home ACO Care Management On track(2020 9:44 AM CDT) Ratna Velázquez, BIODIESEL TECHNOLOGY MANAGER Note: Problem: Barriers to Home Accessibility Interventions: - Assess home accessibility barriers. - Identify equipment or modifications needed to address barrier(s). - Research available resources to improve home accessibility. - Refer to appropriate resources or alternate housing options. documented as of this encounter Visit Diagnoses Not on filedocumented in this encounter Care Teams Office Manager Executive Assistant Relationship Specialty Start Date End Date Juan Ching PA [address] [place] [address] [address] [place] [address] PCP - General Internal Medicine 01/10/22 Clark Dunham MD [address] [place] [address] [address] [place] [address] Consulting Physician Nephrology 02/21/22 Ana Paula Schwartz, PHP CONSULTANT [address] [place] [address] [address] [place] [address] Nurse Practitioner Medical Oncology 02/21/22 Woodrow Mayes MD [address] [place] [address] [address] [place] [address] Consulting Physician Cardiology 02/21/22 Mega Villagomez MD [address] [place] [address] Referring Physician Orthopedic Surgery 02/21/22 Maxwell Acuña MD [address] [facility] [address] [place] [address] Medical Oncologist/Hematologis t Hematology and Oncology 05/24/22 [place] [address] [address] Consulting Physician Cardiology 12/09/22 Ashok Walters MD [address] [place] [address] Referring Physician Dermatology 08/04/23 Monica Doan MD [address] [place] [address] [address] Consulting Physician Sleep Medicine 08/09/24 documented as of this encounter
--- OUTSIDE RECORDS SUMMARY | 2024-10-12 11:23 | XMS_ITS | Encounter Summary ---
Author Organization [employer] Address [address] [place] [address] Care Team Providers Care Park Naturalist Name Role Phone Luis Ellsworth MD Primary Care Provider Zayda xiong Encounter Details Date Type Department Care Team (Latest Contact Info) Description 05/19/2006 Outpatient Historical [facility] Ashok Tapia MD NO ADDRESS ON FILE Unspecified Peripheral Vascular Disease (Primary Dx) Social History Tobacco Use Types Packs/Day Years Used Date Smoking Tobacco: Never Assessed Sex and Gender Information Value Date Recorded Sex Assigned at Not on file Legal Sex Male 5:25 AM BUSINESS SERVICES SALES AGENT Gender Identity Not on file Sexual Orientation Not on file documented as of this encounter Plan of Treatment Not on file documented as of this encounter Visit Diagnoses Diagnosis Peripheral vascular disease, unspecified- Primary documented in this encounter Care Teams Park Naturalist Relationship Specialty Start Date End Date Luis Ellsworth MD PCP - General 04/28/15 documented as of this encounter
--- OUTSIDE RECORDS SUMMARY | 2024-10-12 11:23 | XMS_ITS | Encounter Summary ---
Author Organization [facility] Address [address] [place] [address] Care Team Providers Care Industrial Cleaner Name Role Phone Luis Ellsworth MD Primary Care Provider Zayda xiong Encounter Details Date Type Department Care Team (Late st Contact Info) Description 09/01/2006 Outpatient Historical [facility] Supp Svcs Blood Flow [address] [place] [address] Don Blackmon MD NO ADDRESS ON FILE Social History Tobacco Use Types Packs/Day Years Used Date Smoking Tobacco: Never Assessed Sex and Gender Information Value Date Recorded Sex Assigned at Not on file Legal Sex Male 5:25 AM QUALITY ASSURANCE ENGINEER Gender Identity Not on file Sexual Orientation Not on file documented as of this encounter Plan of Treatment Not on file documented as of this encounter Visit Diagnoses Not on filedocumented in this encounter Care Teams Industrial Cleaner Relationship Specialty Start Date End Date Luis Ellsworth MD PCP - General 04/28/15 documented as of this encounter
--- OUTSIDE RECORDS SUMMARY | 2024-10-12 11:23 | XMS_ITS | Encounter Summary ---
Author Organization [facility] Address 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
--- OUTSIDE RECORDS SUMMARY | 2024-10-12 11:23 | XMS_ITS | Clinical Summary ---
Author Organization [facility] ([employer]) Address [address] [place] [address] Care Team Providers Care Slot Shift Manager Name Role Phone Unavailable Primary Care Provider Unavailabl e Source Comments [facility],non-owned Affiliates and Associated Physician Practices is amultiple site organization consisting of ambulatory clinics and hospital sitesin [place], [place], [place] and [place]. This disclosure is being madepursuant to the Care Everywhere program and may not contain all information available regarding this patient. Last updated 18.[facility] ([employer]) Allergies Active Allergy Reactions Criticality Noted Date Comments Daptomycin Rash 09/21/2009 ioban [Other] Rash 09/21/2009 Medications * Be aware that medications may not be up to date on this document. Alwaysverify current medications with the patient. rosuvastatin (CRESTOR) 40 MG tablet Take 40 mg by mouth daily. Active zolpidem (AMBIEN) 10 MG tablet Take 10 mg by mouth nightly as needed for Insomnia. Active bisoprolol - hydrochlorothiazide (ZIAC) 5-6.25 MG tablet Take 1 Tab by mouth daily. Active ezetimibe (ZETIA) 10 MG tablet Take 10 mg by mouth daily. Active omeprazole (PRILOSEC) 20 MG capsule Take 20 mg by mouth 2 times daily. Active multivitamin daily (THERAGRAN) tablet Take 1 Tab by mouth daily with food. Active morphine 4 MG/ML injection 0.5 mL by Intravenous route every 3 hours as needed for Pain. 0 0 010 Active acetaminophen (TYLENOL) 500 MG tablet Take 1 Tab by mouth every 4 hours as needed for Fever and Pain. Maximum allowable Acetaminophen amount = 4 Grams / 24 hours. 0 0 010 Active heparin 5000 UNIT/ML injection Inject 1 mL subcutaneously every 8 hours. 0 0 Active lisinopril (PRINIVIL;ZESTRIL) 40 MG tablet Take 1 Tab by mouth daily. 0 0 Active ciprofloxacin (CIPRO) 500 MG tablet Take 1 Tab by mouth every 12 hours. 0 0 Active 0.9% nacl (SALINE FLUSH) 0.9 % injection 3 mL by Intracatheter route every 8 hours. 0 0 Active linezolid (ZYVOX) 600 MG tablet Take 1 Tab by mouth every 12 hours. 0 0 Active cetylpyridinium chloride (CEPACOL) 2 MG lozenge Take 1 Lozenge by mouth as needed for Sore Throat. 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 Gender Identity Not on file Sexual Orientation Not on file Last Filed Vital Signs Vital Sign Reading Time Taken Comments Blood Pressure 143/66 10/13/2009 10:56 AM CDT Pulse 57 10/13/2009 10:56 AM CDT Temperature 36.6 C (97.8 F) 10/13/2009 10:56 AM CDT Respiratory Rate 18 10/13/2009 10:56 AM CDT Oxygen Saturation 97% 09/25/2009 10:50 AM CDT Inhaled Oxygen Concentration 100% 09/21/2009 1 :39 PM CDT Weight 97.5 kg (215 lb) 09/21/2009 3:06 PM CDT Height 180.3 cm (5' 11) 09/21/2009 3:06 PM CDT Body Mass Index 29.99 09/21/2009 3:06 PM CDT Plan of Treatment Health Maintenance Due Date Last Done Comments MEDICARE AWV 12 MONTHS 1940 DTAP/TDAP/TD VACCINES (1 - Tdap) 1961 PNEUMOCOCCAL VACCINE 50+ (1 of 1 - PCV) 01/14/1992 ZOSTER VACCINE (1 of 2) 01/14/1992 Respiratory Syncytial Virus (RSV) Vaccine Pt: or over 60 yrs (1 - 1-dose 75+ series) 2017 COVID-19 VACCINE ( - 2023- season) 2024 03/27/2021, 06/21/2020, 05/23/2020 DEPRESSION SCREENING 05/12/2024 INFLUENZA VACCINE Completed 03/04/2024, , 02/18/2019, Additional history exists HEPATITIS B VACCINE Aged Out No longe r eligible based on patient's age to complete this topic HIB VACCINE Aged Out No longer eligi ble based on patient's age to complete this topic HPV VACCINE Aged Out No longer eligi ble based on patient's age to complete this topic MENINGOCOCCAL (Group B) VACCINE SHARED DECISION-MAKING Aged Out No longer eligible based on patient's age to complete this topic MENINGOCOCCAL GROUPS A/C/Y/W VACCINE Aged Out No longer eligible based on patient's age to complete this topic Additional Health Concerns Infection Onset Date 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
--- OUTSIDE RECORDS SUMMARY | 2024-10-12 11:23 | XMS_ITS | Encounter Summary ---
Author Organization [facility] Address [address] [place] [address] Care Team Providers Care Rn Spine Name Role Phone Luis Ellsworth MD Primary Care Provider Zayda xiong Encounter Details Date Type Department Care Team (Late st Contact Info) Description 03/09/2007 Outpatient Historical [facility] Blood Flow [address] [place] [address] Jigar Wood MD [address] [facility] [address] [address] Social History Tobacco Use Types Packs/Day Years Used Date Smoking Tobacco: Never Assessed Sex and Gender Information Value Date Recorded Sex Assigned at Not on file 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
--- OUTSIDE RECORDS SUMMARY | 2024-10-12 11:23 | XMS_ITS | Encounter Summary ---
Author Organization [employer] Address 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 [address] [email or web address] Noninvasive Vascular Lab Peripheral Venous Study Patient: Roel Bocanegra Study ID: BLOOD FLOW STUDY Gender: M : 1940 Age: 68 years Race: 1 Room: Bed: Height: Study Date: August 22, 2008 Patient status: Outpatient Weight: Access. #: [id number] POC: Costing Manager: Brian Ordering: aJni Attending MD: Jani Admitting MD: Jani SUMMARY: COMPARISONS Comparison is made with a previous study of September 07, 2007. Patent right lower extremity bypass without evidence of stenosis. There has been no significant interval change. HISTORY AND INDICATIONS: INDICATIONS: Surgical follow-up. Graft surveillance. PROCEDURE INFORMATION: PROCEDURE PERFORMED: Complete color duplex study with imaging and spectral analysis was performed. GRAFT VELOCITIES/COMMENTS Velocity R Inflow 125 cm/sec R Prox anas 172 cm/sec R Zone 1 86 cm/sec Rt Zone 2 81 cm/sec R Zone 3 144 cm/sec R Zone 4 66 cm/sec R Distal Anas 125 cm/sec R Outflow 60 cm/sec Prepared and Electronically Authenticated Don Blackmon MD Amended August 22, 2008 18:18:52 Procedure Note Provider, Historical - 08/22/2008 [facility] [address] [place] [address] [email or web address] Noninvasive Vascular Lab Peripheral Venous Study Patient: Roel Bocanegra Study ID: BLOOD FLOW STUDY Gender: Leland : 1940 Age: 68 years Race: 1 Room: Bed: Height: Study Date: August 22, 2008 Patient status: Outpatient Weight: Access. #: [id number] POC: Costing Manager: Brian Ordering: Jani Attending MD: Jani Admitting MD: Jani SUMMARY: COMPARISONS Comparison is made with a previous study of September 07, 2007. Patent rightlower extremity bypass without evidence of stenosis. There has been nosignificant interval change. HISTORY AND INDICATIONS: INDICATIONS: Surgical follow-up. Graft surveillance. PROCEDURE INFORMATION: PROCEDURE PERFORMED: Complete color duplex study with imaging and spectral analysis wasperformed. GRAFT VELOCITIES/COMMENTS Velocity R Inflow 125 cm/sec R Prox anas 172 cm/sec R Zone 1 86 cm/sec Rt Zone 2 81 cm/sec R Zone 3 144 cm/sec R Zone 4 66 cm/sec R Distal Anas 125 cm/sec R Outflow 60 cm/sec Prepared and Electronically Authenticated Don Blackmon MD Amended August 22, 2008 18:18:52 us Ashok Tapia MD US ORDERABLES Edited * US ARTERIAL IMAGE UPPER GRAFT (08/22/2008 7:08 PM CDT) Anatomical Region Laterality Modality Upper Extremity Other Narrative 08/22/2008 7:08 PM CDT [facility] [address] [place] [address] [email or web address] Noninvasive Vascular Lab Peripheral Venous Study Patient: Roel Bocanegra Study ID: BLOOD FLOW STUDY Gender: M : 1940 Age: 68 years Race: 1 Room: Bed: Height: Study Date: August 22, 2008 Patient status: Outpatient Weight: Access. #: [id number] POC: Costing Manager: Brian Ordering: Jani Attending MD: Jani Admitting MD: Jani SUMMARY: COMPARISONS Comparison is made with a previous study of September 07, 2007. There has been no significant interval change. HISTORY AND INDICATIONS: INDICATIONS: Surgical follow-up. Graft surveillance. PROCEDURE INFORMATION: PROCEDURE PERFORMED: Complete color duplex study with imaging and spectral analysis was performed. GRAFT VELOCITIES/COMMENTS Velocity R Inflow 125 cm/sec R Prox anas 172 cm/sec R Zone 1 86 cm/sec Rt Zone 2 81 cm/sec R Zone 3 144 cm/sec R Zone 4 66 cm/sec R Distal Anas 125 cm/sec R Outflow 60 cm/sec Prepared and Electronically Authenticated Don Blackmon MD Confirmed August 22, 2008 18:16:48 Procedure Note Provider, Historical - 08/22/2008 [address] [address] [place] [address] [email or web address] Noninvasive Vascular Lab Peripheral Venous Study Patient: Reol Bocanegra Study ID: BLOOD FLOW STUDY Gender: M : 1940 Age: 68 years Race: 1 Room: Bed: Height: Study Date: August 22, 2008 Patient status: Outpatient Weight: Access. #: [id number] POC: Costing Manager: Brian Ordering: Jani Attending MD: Jani Admitting MD: Jani SUMMARY: COMPARISONS Comparison is made with a previous study of September 07, 2007. There has beenno significant interval change. HISTORY AND INDICATIONS: INDICATIONS: Surgical follow-up. Graft surveillance. PROCEDURE INFORMATION: PROCEDURE PERFORMED: Complete color duplex study with imaging and spectral analysis wasperformed. GRAFT VELOCITIES/COMMENTS Velocity R Inflow 125 cm/sec R Prox anas 172 cm/sec R Zone 1 86 cm/sec Rt Zone 2 81 cm/sec R Zone 3 144 cm/sec R Zone 4 66 cm/sec R Distal Anas 125 cm/sec R Outflow 60 cm/sec Prepared and Electronically Authenticated Don Blackmon MD Confirmed August 22, 2008 18:16:48 Ashok Tapia MD ORDERABLES Final Resul t documented in this encounter Visit Diagnoses Diagnosis Peripheral vascular disease, unspecified documented in this encounter Care Teams Press Shop Supervisor Relationship Specialty Start Date End Date Luis Ellsworth MD PCP - General 04/28/15 documented as of this encounter
--- OUTSIDE RECORDS SUMMARY | 2024-10-12 11:23 | XMS_ITS | Encounter Summary ---
Author Organization [employer] Address [address] [place] [address] Care Team Providers Care Director New Product Name Role Phone Luis Ellsworth MD Primary Care Provider Zayda xiong Encounter Details Date Type Department Care Team (Latest Contact Info) Description 01/04/2009 Outpatient Historical [facility] Don Blackmon MD NO ADDRESS ON FILE Unspecified Peripheral Vascular Disease Social History Tobacco Use Types Packs/Day Years Used Date Smoking Tobacco: Former Cigarettes 0 01/03/1964 - 01/03/1984 Alcohol Use Standard Drinks/Week Comments No 0 (1 standard drink = 0.6 oz pur e alcohol) Sex and Gender Information Value Date Recorded Sex Assigned at Not on file 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 Gender Identity Not on file Sexual Orientation Not on file documented as of this encounter Plan of Treatment Not on file documented as of this encounter Procedures Procedure Name Priority Date/Time Associated Diagnosis Comments HEMOGLOBIN AND HEMATOCRIT Routine 01/04/2009 11:06 AM CDT BASIC METABOLIC PANEL Routine 01/04/2009 11:06 AM CDT TYPE AND CROSSMATCH Routine 01/04/2009 1 1:05 AM CDT documented in this encounter Results * (ABNORMAL) BASIC METABOLIC PANEL (01/04/2009 11:06 AM CDT) GLUCOSE 93 65 - 99 mg/dL [facility] SODIUM 136 135 - 145 mmol/L [facility] CALCIUM 8.7 8.6 - 10.2 mg/dL [facility] CO2 26 22 - 30 mmol/L [facility] CREATININE 1.33(H) 0.67 - 1.17 mg/dL [facility] POTASSIUM 4.6 3.5 - 4.9 mmol/L [facility] BUN 19 6 - 20 mg/dL [facility] CHLORIDE 101 96 - 108 mmol/L [facility] GFR, >60 >=60 mL/min/1. 7 sq meter [facility] GFR 54(L) >=60 mL/min/1. 7 sq meter [facility] Comment: Modification of Diet in Renal Disease (MDRD) study formula. Estimated GFR rate interpretative information for both Americans and non- Americans is available on the [facility] Intranet at: [email or web address] Select: Lab Policies and Procedures Select: Reference Ranges - GFR Blood specimen (specimen) 01/04/2009 11:06 AM CDT 01/04/2009 12:09 PM CDT us Don Blackmon MD CHEMISTRY ORDERABLES Edited Performing Organization Address City/[facility]/ZIP Co de Phone Number [facility] CLIA# [id number] [address] [place] [address] * (ABNORMAL) HEMOGLOBIN AND HEMATOCRIT (01/04/2009 11:06 AM CDT) HEMATOCRIT 31.7(L) 40.0 - 48.0 % [facility] HEMOGLOBIN 10.0(L) 13.6 - 16.5 g/dL [facility] Blood specimen (specimen) 01/04/2009 11:06 AM CDT 01/04/2009 12:09 PM CDT us Don Blackmon MD HEMATOLOGY ORDERABLES Final Re sult [facility] CLIA# [id number] [address] [place] [place] [address] * TYPE AND CROSSMATCH (01/04/2009 11:05 AM CDT) SPECIMEN LIFE 3 days from OR date [facility] HISTORY CHECK History Checked [facility] ABO/RH TYPE A Positive [facility] ANTIBODY SCREEN Negative [facility] Blood specimen (specimen) 01/04/2009 11:05 AM CDT us Don Blackmon MD BLOOD BANK ORDERABLES Edited INTERFACE SYSTEM Refer to clinic/hospital department [facility] CLIA# [id number] [address] [place] [address] documented in this encounter Visit Diagnoses Diagnosis Peripheral vascular disease, unspecified documented in this encounter Care Teams Director New Product Relationship Specialty Start Date End Date Luis Ellsworth MD PCP - General 04/28/15 documented as of this encounter
--- OUTSIDE RECORDS SUMMARY | 2024-10-12 11:23 | XMS_ITS | Encounter Summary ---
Author Organization [employer] Address 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 Gender Identity Not on file Sexual Orientation Not on file documented as of this encounter Plan of Treatment Not on file documented as of this encounter Procedures Procedure Name Priority Date/Time Associated Diagnosis Comments PT AND APTT Routine 08/16/2005 5:20 AM CDT PLATELET COUNT Routine 08/16/2005 5:20 AM CDT BUN Routine 08/16/2005 5:20 AM CDT CREATININE Routine 08/16/2005 5:20 AM CDT documented in this encounter Results * BUN (08/16/2005 5:20 AM CDT) BUN 17 6 - 20 mg/dL INTERFACE SYSTEM 08/16/2005 5:20 AM CDT us Ashok Tapia MD CHEMISTRY ORDERABLES Final Result INTERFACE SYSTEM Refer to clinic/hospital department * CREATININE (08/16/2005 5:20 AM CDT) CREATININE 1.3 0.5 - 1.3 mg/dL INTERFACE SYSTEM 08/16/2005 5:20 AM CDT us Ashok Tapia MD CHEMISTRY ORDERABLES Final Result Performing Organization Address [facility] Phone Number INTERFACE SYSTEM Refer to clinic/hospital department * PLATELET COUNT (08/16/2005 5:20 AM CDT) PLATELETS 244 140 - 350 K/uL INTERFACE SYSTEM MPV 11.6 9.3 - 12.4 fL INTERFACE SYSTEM 08/16/2005 5:20 AM CDT us Ashok Tapia MD HEMATOLOGY ORDERABLES Final Result Performing Organization Address [facility] Phone Number INTERFACE SYSTEM Refer to clinic/hospital department * PT AND APTT (08/16/2005 5:20 AM CDT) PROTIME 13.4 12.7 - 15.1 Seconds INTERFACE SYSTEM INR 0.9 0.9 - 1.1 INTERFACE SYSTEM Comment: INR Therapeutic Range: Adult: 2.0 - 3.0 for pulmonary embolism or prophylaxis against venous thrombosis or systemic embolization. 2.0 - 3.0 for patients with tissue heart valves. 2.5 - 3.5 for patients with mechanical heart valves or post NH. Pediatric (12 years and under): 1.5 - 3.0 Although the target range in children is not well established , INR values of 1.5 - 3.0 are recommended for most patients. Higher values have been used in children with prosthetic cardiac valves and hereditary clotting disorders. (<3 days) therapeutic ranges have not been established. 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
--- OUTSIDE RECORDS SUMMARY | 2024-10-12 11:23 | XMS_ITS | Encounter Summary ---
Author Organization [employer] Address 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
--- OUTSIDE RECORDS SUMMARY | 2024-10-12 11:23 | XMS_ITS | Encounter Summary ---
Author Organization [employer] Address 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
--- OUTSIDE RECORDS SUMMARY | 2024-10-12 11:23 | XMS_ITS | Encounter Summary ---
Author Organization [employer] Address 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 Gender Identity Not on file Sexual Orientation Not on file documented as of this encounter Plan of Treatment Not on file documented as of this encounter Procedures Procedure Name Priority Date/Time Associated Diagnosis Comments PT AND APTT Routine 10/15/2005 5:20 AM CDT PLATELET COUNT Routine 10/15/2005 5:20 AM CDT BUN Routine 10/15/2005 5:20 AM CDT CREATININE Routine 10/15/2005 5:20 AM CDT documented in this encounter Results * BUN (10/15/2005 5:20 AM CDT) BUN 19 6 - 20 mg/dL INTERFACE SYSTEM 10/15/2005 5:20 AM CDT us Ashok Tapia MD CHEMISTRY ORDERABLES Final Result INTERFACE SYSTEM Refer to clinic/hospital department * CREATININE (10/15/2005 5:20 AM CDT) CREATININE 1.3 0.5 - 1.3 mg/dL INTERFACE SYSTEM 10/15/2005 5:20 AM CDT us Ashok Tapia MD CHEMISTRY ORDERABLES Final Result Performing Organization Address [facility] Phone Number INTERFACE SYSTEM Refer to clinic/hospital department * PLATELET COUNT (10/15/2005 5:20 AM CDT) PLATELETS 199 140 - 350 K/uL INTERFACE SYSTEM MPV 11.8 9.3 - 12.4 fL INTERFACE SYSTEM 10/15/2005 5:20 AM CDT us Ashok Tapia MD HEMATOLOGY ORDERABLES Final Result Performing Organization Address [facility] Phone Number INTERFACE SYSTEM Refer to clinic/hospital department * PT AND APTT (10/15/2005 5:20 AM CDT) PROTIME 13.4 12.7 - 15.1 Seconds INTERFACE SYSTEM INR 0.9 0.9 - 1.1 INTERFACE SYSTEM Comment: INR Therapeutic Range: Adult: 2.0 - 3.0 for pulmonary embolism or prophylaxis against venous thrombosis or systemic embolization. 2.0 - 3.0 for patients with tissue heart valves. 2.5 - 3.5 for patients with mechanical heart valves or post NV. Pediatric (12 years and under): 1.5 - 3.0 Although the target range in children is not well established , INR values of 1.5 - 3.0 are recommended for most patients. Higher values have been used in children with prosthetic cardiac valves and hereditary clotting disorders. (<3 days) therapeutic ranges have not been established. PTT 26.0 24.4 - 36.4 Seconds INTERFACE SYSTEM Comment: PTT Therapeutic Range: Heparin Level PTT (seconds) <0.10 units/mL <53 0.10 - 0.30 units/mL 53 - 67 0.30 - 0.70 units/mL* 67 - 95* 0.70 - 1.00 units/mL 95 - 116 *corresponds to therapeutic range for unfractionated heparin 10/15/2005 5:20 AM CDT us Ashok Tapia MD HEMATOLOGY ORDERABLES Final Result INTERFACE SYSTEM Refer to clinic/hospital department documented in this encounter Visit Diagnoses Diagnosis Atherosclerosis of [place] arteries of the extremities with intermittent claudication- Primary documented in this encounter Care Teams Software Engineer Backend Relationship Specialty Start Date End Date Luis Ellsworth MD PCP - General 04/28/15 documented as of this encounter
--- OUTSIDE RECORDS SUMMARY | 2024-10-12 11:23 | XMS_ITS | Encounter Summary ---
Author Organization [facility] Healthcare Address [address] [place] [address] Care Team Providers Care Lifestyle Director Name Role Phone Juan Ching PA Primary Care Provider Clark Dunham MD Unavailable [phone] Ana Paula Schwartz NP Unavailable [phone] Woodrow Mayes MD Unavailable [phone] Mega Villagomez MD Unavailable [phone] Maxwell Acuña MD Unavailable [phone] Cezar Guillen MD Unavailable [phone] Ashok Walters MD Unavailable Monica Doan MD Unavailable Encounter Details Date Type Department Care Team (Late st Contact Info) Description 08/25/2024 Results Follow-Up [facility] [id number] [address] Woodrow Mayes MD [address] [place] [address] [address] Transthoracic Echo (TTE) Complete W Doppler/CF Social History Tobacco Use Types Packs/Day Years Used Date Smoking Tobacco: Former Cigarettes 1 14 S tarted: 1958 Smokeless Tobacco: Never Alcohol Use Standard Drinks/Week [...] often do you attend chur ch or evangelical services? More than 4 times per year 12/21/2020 Do you belong to any clubs o r organizations such as scientologist groups, unions, fraternal or athletic groups, or school groups? Yes 12/21/2020 How often do you attend meet ings of the clubs or organizations you belong to? 1 to 4 times per year 12/21/2020 Are you , , di vorced, , never , or living with a partner? 12/21/2020 AUDIT-C Answer Date Recorded Q1: How often do you have a drink containing alcohol? Never 04/26/2024 Q2: How many drinks containi ng alcohol do you have on a typical day when you are drinking? Patient does not drink Q3: How often do you have si x or more drinks on one occasion? Never 04/26/2024 Overall Financial Resource Strain (CARDIA) Answe r Date Recorded How hard is it for you to pa y for the very basics like food, housing, medical care, and heating? Not very hard 12/21/2020 PHQ-2 Answer Date Recorded PHQ-2 Total Score (If total score is 3 or more points, staff should administer the PHQ-9) 0 04/21/2024 PRAPARE - Transportation Answer Date Re corded [...] place to sleep or slept in a correction (including now)? No 12/21/2020 Personal Safety Answer Date Recorded Have you ever been in or are you currently in a harmful physical or emotional relationship or is someone making you feel afraid or unsafe? Denies 12/06/2023 Sex and Gender Information Value Date Recorded Sex Assigned at Not on file Legal Sex Male 7:14 PM WHARF HAND Gender Identity Not on file Sexual Orientation Not on file documented as of this encounter Plan of Treatment Not on file documented as of this encounter Goals Goal Patient Goal Type Associated Problems Recent Progress Patient-Stated? Author ACO SW Goal - Patient will be able to safely move about their home ACO Care Management On track(2020 9:44 AM CDT) Ratna Velázquez, VP MEDICAL Note: Problem: Barriers to Home Accessibility Interventions: - Assess home accessibility barriers. - Identify equipment or modifications needed to address barrier(s). - Research available resources to improve home accessibility. - Refer to appropriate resources or alternate housing options. documented as of this encounter Visit Diagnoses Not on filedocumented in this encounter Care Teams Lifestyle Director Relationship Specialty Start Date End Date Juan Ching PA [address] [place] [address] [address] [place] [address] PCP - General Internal Medicine 01/10/22 Clark Dunham MD [address] [place] [address] [address] [place] [address] Consulting Physician Nephrology 02/21/22 Ana Paula Schwartz NP [address] [place] [address] [place] [address] Nurse Practitioner Medical Oncology 02/21/22 Woodrow Mayes MD [address] [place] [address] [place] [address] Consulting Physician Cardiology 02/21/22 Mega Villagomez MD [address] [place] [address] Referring Physician Orthopedic Surgery 02/21/22 Maxwell Acuña MD [address] [place] [address] Medical Oncologist/Hematologis t Hematology and Oncology 05/24/22 Cezar Guillen MD [address] [place] [address] Consulting Physician Cardiology 12/09/22 Ashok Walters MD [address] [place] [address] Referring Physician Dermatology 08/04/23 Monica Doan MD [address] [place] [address] [address] Consulting Physician Sleep Medicine 08/09/24 documented as of this encounter
--- OUTSIDE RECORDS SUMMARY | 2024-10-12 11:23 | XMS_ITS | Encounter Summary ---
Author Organization [facility] Address [address] [place] [address] Care Team Providers Care Gymnasium Teacher Name Role Phone Luis Ellsworth MD Primary Care Provider Zayda xiong Encounter Details Date Type Department Care Team (Late st Contact Info) Description 05/19/2006 Outpatient Historical [facility] Supp Svcs Blood Flow [address] [place] [address] Albert Denis MD [address] 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
--- OUTSIDE RECORDS SUMMARY | 2024-10-12 11:23 | XMS_ITS | Encounter Summary ---
Author Organization [employer] Address [address] [place] [address] Care Team Providers Care Supervisor Finishing Room Name Role Phone Luis Ellsworth MD Primary Care Provider Zayda xiong Encounter Details Date Type Department Care Team (Late st Contact Info) Description 02/18/2006 Outpatient Historical [facility] [address] 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
--- OUTSIDE RECORDS SUMMARY | 2024-10-12 11:23 | XMS_ITS | Encounter Summary ---
Author Organization [employer] Address [address] [place] [address] Care Team Providers Care Log Haul Operator Name Role Phone Luis Ellsworth MD Primary Care Provider Zayda xiong Encounter Details Date Type Department Care Team (Latest Contact Info) Description 01/04/2009 Outpatient Historical HIS CARDIOPULMONARY Don Blackmon MD NO ADDRESS ON FILE Unspecified Peripheral Vascular Disease Social History Tobacco Use Types Packs/Day Years Used Date Smoking Tobacco: Former Cigarettes 0 01/03/1964 - 01/03/1984 Alcohol Use Standard Drinks/Week Comments No 0 (1 standard drink = 0.6 oz pur e alcohol) Sex and Gender Information Value Date Recorded Sex Assigned at Not on file 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 Gender Identity Not on file Sexual Orientation Not on file documented as of this encounter Plan of Treatment Not on file documented as of this encounter Procedures Procedure Name Priority Date/Time Associated Diagnosis Comments US ARTERIAL IMAGE UPPER GRAFT Routine 01/04/2009 7:12 PM CDT documented in this encounter Results * US ARTERIAL IMAGE UPPER GRAFT (01/04/2009 7:12 PM CDT) Anatomical Region Laterality Modality Upper Extremity Other Narrative 01/04/2009 7:12 PM CDT [address] [place] [address] [email or web address] Noninvasive Vascular Lab Peripheral Arterial Study Patient: Roel Bocanegra Study ID: BLOOD FLOW STUDY Gender: Leland : 1940 Age: 68 years Race: 1 Room: Bed: Height: Study Date: January 04, 2009 Patient status: Outpatient Weight: Access. #: [id number] POC: Drawing Tender: Sherman Ordering: Lani Attending MD: Lani Admitting MD: Lani SUMMARY: Increased velocities of proximal anastomosis and at Zone 2 otherwise right VOLLEYBALL ASSEMBLER - HOL[place] insitu bypass is patent. COMPARISONS No previous study is available for comparison. HISTORY AND INDICATIONS: INDICATIONS: Graft surveillance, Re-do of right VOLLEYBALL ASSEMBLER-HOLLEY insitu, 12/19/08. HISTORY: Risk factors and comorbidity: History of coronary artery disease. Hypercholesterolemia. Hypertension. PROCEDURE INFORMATION: PROCEDURE PERFORMED: Complete color duplex study with imaging and spectral analysis was performed on the right leg bypass graft. GRAFT VELOCITIES/COMMENTS Velocity Type of Graft Comments R Inflow 269 cm/sec Vein Re-Do VOLLEYBALL ASSEMBLER-HOLLEY insitu, 12-19-08 R Prox anas 418 cm/sec -- -- R Zone 1 128 cm/sec -- -- Rt Zone 2 484 cm/sec -- -- R Zone 3 122 cm/sec -- -- R Zone 4 118 cm/sec -- -- R Zone 5 108 cm/sec -- -- R Zone 6 110 cm/sec -- -- R Distal Anas 115 cm/sec -- -- R Outflow 112 cm/sec -- -- Prepared and Electronically Authenticated Albert Denis MD Confirmed January 04, 2009 18:43:15 Procedure Note Provider, Historical - 01/04/2009 [address] [address] [place] [address] [email or web address] Noninvasive Vascular Lab Peripheral Arterial Study Patient: Roel Bocanegra Study ID: BLOOD FLOW STUDY Gender: Leland : 1940 Age: 68 years Race: 1 Room: Bed: Height: Study Date: January 04, 2009 Patient status: Outpatient Weight: Access. #: [id number] POC: Drawing Tender: Sherman Ordering: Lani Attending MD: Lani Admitting MD: Lani SUMMARY: Increased velocities of proximal anastomosis and at Zone 2 otherwise rightCFA - HOLLEY insitu bypass is patent. COMPARISONS No previous study is available for comparison. HISTORY AND INDICATIONS: INDICATIONS: Graft surveillance, Re-do of right VOLLEYBALL ASSEMBLER-HOLLEY insitu, 12/19/08. HISTORY: Risk factors and comorbidity: History of coronary artery disease. Hypercholesterolemia. Hypertension. PROCEDURE INFORMATION: PROCEDURE PERFORMED: Complete color duplex study with imaging and spectral analysis wasperformed on the right leg bypass graft. GRAFT VELOCITIES/COMMENTS Velocity Type of Graft Comments R Inflow 269 cm/sec Vein Re-Do VOLLEYBALL ASSEMBLER-HOLLEY insitu, 12-19-08 R Prox anas 418 cm/sec -- -- R Zone 1 128 cm/sec -- -- Rt Zone 2 484 cm/sec -- -- R Zone 3 122 cm/sec -- -- R Zone 4 118 cm/sec -- -- R Zone 5 108 cm/sec -- -- R Zone 6 110 cm/sec -- -- R Distal Anas 115 cm/sec -- -- R Outflow 112 cm/sec -- -- Prepared and Electronically Authenticated Albert Denis MD Confirmed January 04, 2009 18:43:15 Don A Lorri ARTIS ORDERABLES Final Result documented in this encounter Visit Diagnoses Diagnosis Peripheral vascular disease, unspecified documented in this encounter Care Teams Log Haul Operator Relationship Specialty Start Date End Date Luis Ellsworth MD PCP - General 04/28/15 documented as of this encounter
--- OUTSIDE RECORDS SUMMARY | 2024-10-12 11:23 | XMS_ITS | Encounter Summary ---
Author Organization [facility] Address 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
--- OUTSIDE RECORDS SUMMARY | 2024-10-12 11:23 | XMS_ITS | Encounter Summary ---
Author Organization [employer] Address 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
--- OUTSIDE RECORDS SUMMARY | 2024-10-12 11:23 | XMS_ITS | Encounter Summary ---
Author Organization [facility] Address [address] [place] [address] Care Team Providers Care Preprint Analyst Name Role Phone Luis Ellsworth MD Primary Care Provider Zayda xiong Encounter Details Date Type Department Care Team (Late st Contact Info) Description 02/18/2006 Outpatient Historical 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
--- OUTSIDE RECORDS SUMMARY | 2024-10-12 11:23 | XMS_ITS | Encounter Summary ---
Author Organization [facility] [employer] Address 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 Gender Identity Not on file Sexual Orientation Not on file documented as of this encounter Plan of Treatment Not on file documented as of this encounter Procedures Procedure Name Priority Date/Time Associated Diagnosis Comments CBC WITH DIFFERENTIAL Routine 12/22/2008 4:50 AM CDT PROTIME-INR Routine 12/22/2008 4:50 AM CDT BASIC METABOLIC PANEL Routine 12/22/2008 4:50 AM CDT BLOOD CULTURE Timed Study 12/21/2008 5:15 PM CDT BLOOD CULTURE Timed Study 12/21/2008 5:15 PM CDT POC GLUCOSE Routine 12/21/2008 11:26 AM CDT PROTIME-INR Routine 12/21/2008 7:15 AM CDT C-REACTIVE PROTEIN Timed Study 12/21/2008 4: 33 AM CDT BASIC METABOLIC PANEL Routine 12/21/2008 4:33 AM CDT CBC WITH DIFFERENTIAL Routine 12/20/2008 12:35 PM CDT CREATININE Routine 12/20/2008 12:35 PM CDT CBC WITH DIFFERENTIAL Routine 12/20/2008 4:35 AM CDT PROTIME-INR Routine 12/20/2008 4:35 AM CDT PHOSPHORUS Routine 12/20/2008 4:35 AM CDT MAGNESIUM LEVEL Routine 12/20/2008 4:35 AM CDT CK Routine 12/20/2008 4:35 AM CDT BASIC METABOLIC PANEL Routine 12/20/2008 4:35 AM CDT SODIUM, RANDOM URINE Routine 12/19/2008 6:10 PM CDT CREATININE, RANDOM URINE Routine 12/19/2008 6:10 PM CDT URINALYSIS WITH MICROSCOPIC Routine 12/19/2008 6:10 PM CDT CBC WITH DIFFERENTIAL Routine 12/19/2008 4:40 AM CDT PTT Routine 12/19/2008 4:40 AM CDT PROTIME-INR Routine 12/19/2008 4:40 AM CDT TROPONIN Timed Study 12/19/2008 4:40 AM CDT BASIC METABOLIC PANEL Routine 12/19/2008 4:40 AM CDT PHOSPHORUS Timed Study 12/19/2008 4:00 AM CDT MAGNESIUM LEVEL Timed Study 12/19/2008 4:00 AM CDT CBC WITH DIFFERENTIAL Timed Study 12/18/2008 9:00 PM CDT PTT Timed Study 12/18/2008 9:00 PM CDT PROTIME-INR Timed Study 12/18/2008 9:00 PM CDT TROPONIN Timed Study 12/18/2008 9:00 PM CDT BASIC METABOLIC PANEL Timed Study 12/18/2008 9:00 PM CDT POC BLOOD GAS Routine 12/18/2008 6:04 PM CDT POC ACTIVATED CLOTTING TIME Routine 12/18/2008 5:32 PM CDT POC BLOOD GAS Routine 12/18/2008 5:19 PM CDT PATHOLOGY Routine 12/18/2008 4:56 PM CDT IR EXTREMITY ARTERIAL Routine 12/18/2008 3:26 PM CDT IR ARTERIOGRAM ABDOMINAL Routine 12/18/2008 3:26 PM CDT PT AND APTT Stat 12/18/2008 1:26 PM CDT TYPE AND CROSSMATCH Routine 12/18/2008 1 :26 PM CDT CBC WITH DIFFERENTIAL Stat 12/18/2008 1:06 PM CDT COMPREHENSIVE METABOLIC PANEL Stat 12/18/2008 1:06 PM CDT documented in this encounter Results * BASIC METABOLIC PANEL (12/22/2008 4:50 AM CDT) CREATININE 1.17 0.67 - 1.17 mg/dL [facility] POTASSIUM 4.9 3.5 - 4.9 mmol/L [facility] BUN 18 6 - 20 mg/dL [facility] CHLORIDE 104 96 - 108 mmol/L [facility] GLUCOSE 97 65 - 99 mg/dL [facility] SODIUM 139 135 - 145 mmol/L [facility] CALCIUM 8.6 8.6 - 10.2 mg/dL [facility] CO2 29 22 - 30 mmol/L [facility] GFR, >60 >=60 mL/min/1.7 sq meter [facility] GFR >60 >=60 mL/min/1.7 sq meter [facility] Comment: Modification of Diet in Renal Disease (MDRD) study formula. Estimated GFR rate interpretative information for both Americans and non- Americans is available on the [facility] Intranet at: [email or web address] Select: Lab Policies and Procedures Select: Reference Ranges - GFR Blood specimen (specimen) 12/22/2008 4:50 AM CDT 12/22/2008 6:07 AM CDT Emiliano Williamson MD CHEMISTRY ORDERABLES Edited [facility] CLIA# [id number] [address] [facility] [place], [place] [address] * (ABNORMAL) PROTIME-INR (12/22/2008 4:50 AM CDT) PROTIME 28.8(H) 12.7 - 15.1 Seconds [facility] INR 2.7(H) 0.9 - 1.1 [facility] Comment: INR Therapeutic Range: Adult: 2.0 - 3.0 for pulmonary embolism or prophylaxis against venous thrombosis or systemic embolization. 2.0 - 3.0 for patients with tissue heart valves. 2.5 - 3.5 for patients with mechanical heart valves or post ID. Pediatric (12 years and under): 1.5 - 3.0 Although the target range in children is not well established, INR values of 1.5 - 3.0 are recommended for most patients. Higher values have been used in children with prosthetic cardiac valves and hereditary clotting disorders. Elsa (<3 days) therapeutic ranges have not been established. Blood specimen (specimen) 12/22/2008 4:50 AM CDT 12/22/2008 6:07 AM CDT us Emiliano Williamson MD HEMATOLOGY ORDERABLES Final Result [facility] CLIA# [id number] [address] [place] [address] * (ABNORMAL) CBC WITH DIFFERENTIAL (12/22/2008 4:50 AM CDT) WBC 9.4 4.0 - 9.8 K/uL [facility] MCH 29.3 27.2 - 32.6 pg [facility] MPV 10.8 9.3 - 12.4 fL [facility] HEMATOCRIT 31.5(L) 40.0 - 48.0 % [facility] RDW-STDEV 47.1 37.1 - 48.7 fL [facility] RBC 3.48(L) 4.50 - 5.40 M/uL [facility] MCHC 32.4 31.5 - 35.5 % [facility] MCV 90.5 82.0 - 99.0 fL [facility] PLATELETS 252 140 - 350 K/uL [facility] HEMOGLOBIN 10.2(L) 13.6 - 16.5 g/dL [facility] RDW 14.3 11.5 - 14.5 % [facility] LYMPHOCYTES 19 16 - 45 % [facility] LYMPHOCYTE ABSOLUTE 1.75 0.70 - 4.50 K/uL [facility] BASOPHILS 0 0 - 2 % [facility] BASOPHILS ABSOLUTE 0.02 0.00 - 0.20 K/uL [facility] MONOCYTES 12 3 - 13 % [facility] MONOCYTE ABSOLUTE 1.17 0.10 - 1.30 K/uL [facility] NEUTROPHILS 65 45 - 70 % [facility] NEUTROPHIL ABSOLUTE 6.10 1.90 - 7.00 K/uL [facility] EOSINOPHILS 4 0 - 7 % [facility] EOSINOPHIL ABSOLUTE 0.39 0.00 - 0.70 K/uL [facility] Blood specimen (specimen) 12/22/2008 4:50 AM CDT 12/22/2008 6:07 AM CDT us Emiliano Williamson MD HEMATOLOGY ORDERABLES Edited Performing Organization Address City/[facility]/ZIP Co de Phone Number [facility] CLIA# [id number] [address] [place] [address] * BLOOD CULTURE (12/21/2008 5:15 PM CDT) [facility] PRELIMINARY REPORT No growth to date. Culture in progress [facility] FINAL REPORT No growth 5 days [facility] Blood specimen (specimen) 12/21/2008 5:15 PM CDT 12/21/2008 5:22 PM CDT us Emiliano Williamson MD MICROBIOLOGY - GENERAL ORDER FRANCESCA Final Result Performing Organization Address City/[facility]/ZIP Co de Phone Number [facility] CLIA# [id number] [address] [place] [facility] [address] * BLOOD CULTURE (12/21/2008 5:15 PM CDT) [facility] PRELIMINARY REPORT No growth to date. Culture in progress [facility] FINAL REPORT No growth 5 days [facility] Blood specimen (specimen) 12/21/2008 5:15 PM CDT 12/21/2008 5:21 PM CDT us Emiliano Williamson MD MICROBIOLOGY - GENERAL ORDER FRANCESCA Final Result Performing Organization Address [facility]/ZIP Co de Phone Number [facility] CLIA# [id number] [address] [place] [address] * (ABNORMAL) POC GLUCOSE (12/21/2008 11:26 AM CDT) GLUCOSE POC 144(H) 65 - 99 mg/dL [facility] CLIA LICENSE [id number] [facility] Venous blood specimen (specimen) 12/21/2008 11:26 AM CDT 12/21/2008 11:26 AM CDT us Altaf Velazquez MD POINT OF CARE TESTING Final Re sult Performing Organization Address City/[facility]/ZIP Co de Phone Number [facility] CLIA# [id number] [address] [place], [place] [address] * (ABNORMAL) PROTIME-INR (12/21/2008 7:15 AM CDT) INR 2.4(H) 0.9 - 1.1 [facility] Comment: INR Therapeutic Range: Adult: 2.0 - 3.0 for pulmonary embolism or prophylaxis against venous thrombosis or systemic embolization. 2.0 - 3.0 for patients with tissue heart valves. 2.5 - 3.5 for patients with mechanical heart valves or post ID. Pediatric (12 years and under): 1.5 - 3.0 Although the target range in children is not well established, INR values of 1.5 - 3.0 are recommended for most patients. Higher values have been used in children with prosthetic cardiac valves and hereditary clotting disorders. Elsa (<3 days) therapeutic ranges have not been established. PROTIME 26.8(H) 12.7 - 15.1 Seconds [facility] Blood specimen (specimen) 12/21/2008 7:15 AM CDT 12/21/2008 7:30 AM CDT us Emiliano Williamson MD HEMATOLOGY ORDERABLES Final Result Performing Organization Address [facility] Co de Phone Number [facility] CLIA# [id number] [address] [place] [address] * (ABNORMAL) C-REACTIVE PROTEIN (12/21/2008 4:33 AM CDT) CRP 18.7(H) 0.0 - 0.8 mg/dL [facility] Blood specimen (specimen) 12/21/2008 4:33 AM CDT 12/21/2008 5:34 PM CDT us Emiliano Williamson MD CHEMISTRY ORDERABLES Final R esult Performing Organization Address [facility] Co de Phone Number [facility] CLIA# [id number] [address] [place] [address] * (ABNORMAL) BASIC METABOLIC PANEL (12/21/2008 4:33 AM CDT) CALCIUM 7.9(L) 8.6 - 10.2 mg/dL [facility] CO2 26 22 - 30 mmol/L [facility] CREATININE 1.25(H) 0.67 - 1.17 mg/dL [facility] POTASSIUM 4.4 3.5 - 4.9 mmol/L [facility] BUN 19 6 - 20 mg/dL [facility] CHLORIDE 102 96 - 108 mmol/L [facility] GLUCOSE 101(H) 65 - 99 mg/dL [facility] SODIUM 136 135 - 145 mmol/L [facility] GFR, >60 >=60 mL/min/1. 7 sq meter [facility] GFR 58(L) >=60 mL/min/1. 7 sq meter [facility] Comment: Modification of Diet in Renal Disease (MDRD) study formula. Estimated GFR rate interpretative information for both Americans and non- Americans is available on the [facility] Intranet at: [email or web address] Select: Lab Policies and Procedures Select: Reference Ranges - GFR Blood specimen (specimen) 12/21/2008 4:33 AM CDT 12/21/2008 5:38 AM CDT Emiliano Williamson MD CHEMISTRY ORDERABLES Edited [facility] CLIA# [id number] [address] [place] [address] * (ABNORMAL) CBC WITH DIFFERENTIAL (12/20/2008 12:35 PM CDT) RBC 3.68(L) 4.50 - 5.40 M/uL [facility] MCHC 33.3 31.5 - 35.5 % [facility] MCV 89.7 82.0 - 99.0 fL [facility] PLATELETS 209 140 - 350 K/uL [facility] HEMOGLOBIN 11.0(L) 13.6 - 16.5 g/dL [facility] RDW 14.4 11.5 - 14.5 % [facility] WBC 12.0(H) 4.0 - 9.8 K/uL [facility] MCH 29.9 27.2 - 32.6 pg [facility] MPV 10.7 9.3 - 12.4 fL [facility] HEMATOCRIT 33.0(L) 40.0 - 48.0 % [facility] RDW-STDEV 47.2 37.1 - 48.7 fL [facility] NEUTROPHILS 80(H) 45 - 70 % [facility] NEUTROPHIL ABSOLUTE 9.56(H) 1.90 - 7.00 K/uL [facility] EOSINOPHILS 2 0 - 7 % [facility] EOSINOPHIL ABSOLUTE 0.23 0.00 - 0.70 K/uL [facility] LYMPHOCYTES 11(L) 16 - 45 % [facility] LYMPHOCYTE ABSOLUTE 1.33 0.70 - 4.50 K/uL [facility] BASOPHILS 0 0 - 2 % [facility] BASOPHILS ABSOLUTE 0.02 0.00 - 0.20 K/uL [facility] MONOCYTES 7 3 - 13 % [facility] MONOCYTE ABSOLUTE 0.88 0.10 - 1.30 K/uL [facility] Blood specimen (specimen) 12/20/2008 12:35 PM CDT 12/20/2008 12:42 PM CDT us Marianela Gonzalez MD HEMATOLOGY ORDERABLES Edited [facility] CLIA# [id number] [address] [facility] [place] [address] * (ABNORMAL) CREATININE (12/20/2008 12:35 PM CDT) CREATININE 1.51(H) 0.67 - 1.17 mg/dL [facility] GFR, 56(L) >=60 mL/min/1. 7 sq meter [facility] GFR 46(L) >=60 mL/min/1. 7 sq meter [facility] Comment: Modification of Diet in Renal Disease (MDRD) study formula. Estimated GFR rate interpretative information for both Americans and non- Americans is available on the [facility] Intranet at: [email or web address] Select: Lab Policies and Procedures Select: Reference Ranges - GFR Blood specimen (specimen) 12/20/2008 12:35 PM CDT 12/20/2008 12:42 PM CDT Marianela Gonzalez MD CHEMISTRY ORDERABLES Edited [facility] CLIA# [id number] [address] [place] [address] * (ABNORMAL) CK (12/20/2008 4:35 AM CDT) CK 4,638(H) 10 - 170 U/L [facility] Blood specimen (specimen) 12/20/2008 4:35 AM CDT 12/20/2008 5:01 AM CDT Fampra Calvert CHEMISTRY ORDERABLES Edited Performing Organization Address City/[facility]/ZIP Co de Phone Number [facility] CLIA# [id number] [address] [place] [address] * PHOSPHORUS (12/20/2008 4:35 AM CDT) PHOSPHORUS 2.8 2.5 - 4.5 mg/dL [facility] Blood specimen (specimen) 12/20/2008 4:35 AM CDT 12/20/2008 5:01 AM CDT Fampra Calvert CHEMISTRY ORDERABLES Final Resul t [facility] CLIA# [id number] [address] [place] [address] * MAGNESIUM LEVEL (12/20/2008 4:35 AM CDT) MAGNESIUM 2.3 1.5 - 2.5 mg/dL [facility] Blood specimen (specimen) 12/20/2008 4:35 AM CDT 12/20/2008 5:01 AM CDT us Linda Douglasstens CHEMISTRY ORDERABLES Final Resul t [facility] CLIA# [id number] [address] [facility] [address] [place], [place] [address] * (ABNORMAL) BASIC METABOLIC PANEL (12/20/2008 4:35 AM CDT) CHLORIDE 103 96 - 108 mmol/L [facility] GLUCOSE 118(H) 65 - 99 mg/dL [facility] SODIUM 134(L) 135 - 145 mmol/L [facility] CALCIUM 7.9(L) 8.6 - 10.2 mg/dL [facility] CO2 23 22 - 30 mmol/L [facility] CREATININE 1.60(H) 0.67 - 1.17 mg/dL [facility] POTASSIUM 4.7 3.5 - 4.9 mmol/L [facility] BUN 27(H) 6 - 20 mg/dL [facility] GFR, 53(L) >=60 mL/min/1. 7 sq meter [facility] GFR 43(L) >=60 mL/min/1. 7 sq meter [facility] Comment: Modification of Diet in Renal Disease (MDRD) study formula. Estimated GFR rate interpretative information for both Americans and non- Americans is available on the [facility] Intranet at: [email or web address] Select: Lab Policies and Procedures Select: Reference Ranges - GFR Blood specimen (specimen) 12/20/2008 4:35 AM CDT 12/20/2008 5:01 AM CDT [facility] CHEMISTRY ORDERABLES Edited Performing Organization Address [facility] Co de Phone Number [facility] CLIA# [id number] [address] [place] [address] * (ABNORMAL) PROTIME-INR (12/20/2008 4:35 AM CDT) PROTIME 22.1(H) 12.7 - 15.1 Seconds [facility] INR 1.9(H) 0.9 - 1.1 [facility] Comment: INR Therapeutic Range: Adult: 2.0 - 3.0 for pulmonary embolism or prophylaxis against venous thrombosis or systemic embolization. 2.0 - 3.0 for patients with tissue heart valves. 2.5 - 3.5 for patients with mechanical heart valves or post ID. Pediatric (12 years and under): 1.5 - 3.0 Although the target range in children is not well established, INR values of 1.5 - 3.0 are recommended for most patients. Higher values have been used in children with prosthetic cardiac valves and hereditary clotting disorders. Elsa (<3 days) therapeutic ranges have not been established. Blood specimen (specimen) 12/20/2008 4:35 AM CDT 12/20/2008 5:02 AM CDT [facility] HEMATOLOGY ORDERABLES Final Resu lt Performing Organization Address [facility]/ZIP Co de Phone Number [facility] CLIA# [id number] [address] [place] [address] * (ABNORMAL) CBC WITH DIFFERENTIAL (12/20/2008 4:35 AM CDT) WBC 12.1(H) 4.0 - 9.8 K/uL [facility] MCH 29.5 27.2 - 32.6 pg [facility] MPV 11.5 9.3 - 12.4 fL [facility] HEMATOCRIT 33.0(L) 40.0 - 48.0 % [facility] RDW-STDEV 47.5 37.1 - 48.7 fL [facility] RBC 3.66(L) 4.50 - 5.40 M/uL [facility] MCHC 32.7 31.5 - 35.5 % [facility] MCV 90.2 82.0 - 99.0 fL [facility] PLATELETS 197 140 - 350 K/uL [facility] HEMOGLOBIN 10.8(L) 13.6 - 16.5 g/dL [facility] RDW 14.4 11.5 - 14.5 % [facility] BASOPHILS 0 0 - 2 % [facility] BASOPHILS ABSOLUTE 0.02 0.00 - 0.20 K/uL [facility] MONOCYTES 9 3 - 13 % [facility] MONOCYTE ABSOLUTE 1.06 0.10 - 1.30 K/uL [facility] NEUTROPHILS 81(H) 45 - 70 % [facility] NEUTROPHIL ABSOLUTE 9.74(H) 1.90 - 7.00 K/uL [facility] EOSINOPHILS 1 0 - 7 % [facility] EOSINOPHIL ABSOLUTE 0.15 0.00 - 0.70 K/uL [facility] LYMPHOCYTES 9(L) 16 - 45 % [facility] LYMPHOCYTE ABSOLUTE 1.10 0.70 - 4.50 K/uL [facility] Blood specimen (specimen) 12/20/2008 4:35 AM CDT 12/20/2008 5:02 AM CDT us Linda Millan HEMATOLOGY ORDERABLES Edited [facility] CLIA# [id number] [address] [place] [address] * (ABNORMAL) URINALYSIS WITH MICROSCOPIC (12/19/2008 6:10 PM CDT) Pathologist [facility] LEUKOCYTE ESTERASE UA 1+(A) Negative [facility] RBC UA >100(H) 0 - 3 /HPF [facility] SPECIFIC GRAVITY UA 1.023 1.001 - 1.035 [facility] GLUCOSE UA Negative Negative [facility] BLOOD UA 3+(A) Negative [facility] COLOR UA Red [facility] NITRITE UA Negative Negative [facility] BACTERIA UA 1+(A) None Seen /HPF [facility] UROBILINOGEN UA <1 <=1 mg/dL [facility] PH UA 6.0 5.0 - 8.0 [facility] WBC UA 15(H) 0 - 3 /HPF [facility] KETONES UA Negative Negative [facility] CLARITY UA Slt. Cloudy(A) Clear [facility] BILIRUBIN UA Negative Negative [facility] PROTEIN UA Confirmed--2 +(A) Negative [facility] HYALINE CAST 2 0 - 2 /LPF [facility] 12/19/2008 6:10 PM CDT 12/19/2008 6:30 PM CDT us Emiliano Williamson MD URINE ORDERABLES Final Resul t [facility] CLIA# [id number] [address] [place] [address] * CREATININE, RANDOM URINE (12/19/2008 6:10 PM CDT) Creatinine, Urine 198 40 - 278 mg/dL [facility] Comment:Reference Range vari es with fluid intake and diet. Urine specimen (specimen) 12/19/2008 6:10 PM CDT 12/19/2008 6:30 PM CDT us Emiliano Williamson MD URINE ORDERABLES Final Resul t Performing Organization Address [facility] Co de Phone Number [facility] CLIA# [id number] [address] [place] [address] * SODIUM, RANDOM URINE (12/19/2008 6:10 PM CDT) SODIUM, URINE 59 mmol/L [facility] Comment:No Reference Range E stablished for Random Urine Sodium. Urine specimen (specimen) 12/19/2008 6:10 PM CDT 12/19/2008 6:30 PM CDT us Emiliano Williamson MD URINE ORDERABLES Final Resul t Performing Organization Address [facility] de Phone Number [facility] CLIA# [id number] [address] [place], [place] [address] * (ABNORMAL) PTT (12/19/2008 4:40 AM CDT) PTT 42.0(H) 24.4 - 36.4 Seconds [facility] Comment: PTT Therapeutic Range: Heparin Level PTT (seconds) <0.10 units/mL <53 0.10 - 0.30 units/mL 53 - 67 0.30 - 0.70 units/mL* 67 - 95* 0.70 - 1.00 units/mL 95 - 116 *corresponds to therapeutic range for unfractionated heparin Blood specimen (specimen) 12/19/2008 4:40 AM CDT 12/19/2008 4:53 AM CDT us Altaf Velazquez MD HEMATOLOGY ORDERABLES Final Re sult Performing Organization Address [facility] Co de Phone Number [facility] CLIA# [id number] [address] [place] [address] * (ABNORMAL) PROTIME-INR (12/19/2008 4:40 AM CDT) PROTIME 20.5(H) 12.7 - 15.1 Seconds [facility] INR 1.7(H) 0.9 - 1.1 [facility] Comment: INR Therapeutic Range: Adult: 2.0 - 3.0 for pulmonary embolism or prophylaxis against venous thrombosis or systemic embolization. 2.0 - 3.0 for patients with tissue heart valves. 2.5 - 3.5 for patients with mechanical heart valves or post ID. Pediatric (12 years and under): 1.5 - 3.0 Although the target range in children is not well established, INR values of 1.5 - 3.0 are recommended for most patients. Higher values have been used in children with prosthetic cardiac valves and hereditary clotting disorders. (<3 days) therapeutic ranges have not been established. Blood specimen (specimen) 12/19/2008 4:40 AM CDT 12/19/2008 4:53 AM CDT us Altaf Velazquez MD HEMATOLOGY ORDERABLES Final Re sult Performing Organization Address [facility] Co de Phone Number [facility] CLIA# [id number] [address] [place] [address] * (ABNORMAL) BASIC METABOLIC PANEL (12/19/2008 4:40 AM CDT) BUN 32(H) 6 - 20 mg/dL [facility] CHLORIDE 105 96 - 108 mmol/L [facility] GLUCOSE 104(H) 65 - 99 mg/dL [facility] SODIUM 135 135 - 145 mmol/L [facility] CALCIUM 7.9(L) 8.6 - 10.2 mg/dL [facility] CO2 23 22 - 30 mmol/L [facility] CREATININE 1.91(H) 0.67 - 1.17 mg/dL [facility] POTASSIUM 4.4 3.5 - 4.9 mmol/L [facility] GFR, 43(L) >=60 mL/min/1. 7 sq meter [facility] GFR 35(L) >=60 mL/min/1. 7 sq meter [facility] Comment: Modification of Diet in Renal Disease (MDRD) study formula. Estimated GFR rate interpretative information for both Americans and non- Americans is available on the [facility] Intranet at: [email or web address] Select: Lab Policies and Procedures Select: Reference Ranges - GFR Blood specimen (specimen) 12/19/2008 4:40 AM CDT 12/19/2008 4:53 AM CDT us Altaf Velazquez MD CHEMISTRY ORDERABLES Edited [facility] CLIA# [id number] [address] [place] [place] [address] * (ABNORMAL) CBC WITH DIFFERENTIAL (12/19/2008 4:40 AM CDT) RBC 3.62(L) 4.50 - 5.40 M/uL [facility] MCHC 32.5 31.5 - 35.5 % [facility] MCV 88.4 82.0 - 99.0 fL [facility] PLATELETS 182 140 - 350 K/uL [facility] HEMOGLOBIN 10.4(L) 13.6 - 16.5 g/dL [facility] RDW 14.3 11.5 - 14.5 % [facility] WBC 13.6(H) 4.0 - 9.8 K/uL [facility] MCH 28.7 27.2 - 32.6 pg [facility] MPV 11.1 9.3 - 12.4 fL [facility] HEMATOCRIT 32.0(L) 40.0 - 48.0 % [facility] RDW-STDEV 46.1 37.1 - 48.7 fL [facility] NEUTROPHILS 82(H) 45 - 70 % [facility] NEUTROPHIL ABSOLUTE 11.17(H) 1.90 - 7.00 K/uL [facility] EOSINOPHILS 0 0 - 7 % [facility] EOSINOPHIL ABSOLUTE 0.01 0.00 - 0.70 K/uL [facility] LYMPHOCYTES 10(L) 16 - 45 % [facility] LYMPHOCYTE ABSOLUTE 1.35 0.70 - 4.50 K/uL [facility] BASOPHILS 0 0 - 2 % [facility] BASOPHILS ABSOLUTE 0.01 0.00 - 0.20 K/uL [facility] MONOCYTES 8 3 - 13 % [facility] MONOCYTE ABSOLUTE 1.08 0.10 - 1.30 K/uL [facility] Blood specimen (specimen) 12/19/2008 4:40 AM CDT 12/19/2008 4:53 AM CDT us Altaf Velazquez MD HEMATOLOGY ORDERABLES Edited [facility] CLIA# [id number] [address] [place] [address] * TROPONIN (12/19/2008 4:40 AM CDT) TROPONIN T <0.01 <=0.03 ng/mL [facility] TROPONIN T INTERP Negative [facility] Blood specimen (specimen) 12/19/2008 4:40 AM CDT 12/19/2008 4:53 AM CDT Ben Ernst MD CHEMISTRY ORDERABLES Edited Performing Organization Address [facility] Co de Phone Number [facility] CLIA# [id number] [address] [place] [address] * PHOSPHORUS (12/19/2008 4:00 AM CDT) PHOSPHORUS 2.9 2.5 - 4.5 mg/dL [facility] Blood specimen (specimen) 12/19/2008 4:00 AM CDT 12/19/2008 9:51 AM CDT Ben Ernst MD CHEMISTRY ORDERABLES Final Resul t Performing Organization Address [facility] Co de Phone Number [facility] CLIA# [id number] [address] [place] [address] * MAGNESIUM LEVEL (12/19/2008 4:00 AM CDT) MAGNESIUM 2.3 1.5 - 2.5 mg/dL [facility] Blood specimen (specimen) 12/19/2008 4:00 AM CDT 12/19/2008 9:51 AM CDT Ben Ernst MD CHEMISTRY ORDERABLES Final Resul t Performing Organization Address City/[facility]/ZIP Co de Phone Number [facility] CLIA# [id number] [address] [place] [address] * TROPONIN (12/18/2008 9:00 PM CDT) TROPONIN T <0.01 <=0.03 ng/mL [facility] TROPONIN T INTERP Negative [facility] Blood specimen (specimen) 12/18/2008 9:00 PM CDT 12/18/2008 9:02 PM CDT Altaf Velazquez MD CHEMISTRY ORDERABLES Edited Performing Organization Address [facility] de Phone Number [facility] CLIA# [id number] [address] [place] [address] * (ABNORMAL) PTT (12/18/2008 9:00 PM CDT) PTT 55.8(H) 24.4 - 36.4 Seconds [facility] Comment: PTT Therapeutic Range: Heparin Level PTT (seconds) <0.10 units/mL <53 0.10 - 0.30 units/mL 53 - 67 0.30 - 0.70 units/mL* 67 - 95* 0.70 - 1.00 units/mL 95 - 116 *corresponds to therapeutic range for unfractionated heparin Blood specimen (specimen) 12/18/2008 9:00 PM CDT 12/18/2008 9:02 PM CDT Altaf Velazquez MD HEMATOLOGY ORDERABLES Final Re sult Performing Organization Address [facility] de Phone Number [facility] CLIA# [id number] [address] [place] [address] * (ABNORMAL) PROTIME-INR (12/18/2008 9:00 PM CDT) PROTIME 20.8(H) 12.7 - 15.1 Seconds [facility] INR 1.8(H) 0.9 - 1.1 [facility] Comment: INR Therapeutic Range: Adult: 2.0 - 3.0 for pulmonary embolism or prophylaxis against venous thrombosis or systemic embolization. 2.0 - 3.0 for patients with tissue heart valves. 2.5 - 3.5 for patients with mechanical heart valves or post ID. Pediatric (12 years and under): 1.5 - 3.0 Although the target range in children is not well established, INR values of 1.5 - 3.0 are recommended for most patients. Higher values have been used in children with prosthetic cardiac valves and hereditary clotting disorders. Elsa (<3 days) therapeutic ranges have not been established. Blood specimen (specimen) 12/18/2008 9:00 PM CDT 12/18/2008 9:02 PM CDT us Altaf Velazquez MD HEMATOLOGY ORDERABLES Final Re sult [facility] CLIA# [id number] [address] [place] [address] * (ABNORMAL) BASIC METABOLIC PANEL (12/18/2008 9:00 PM CDT) CO2 23 22 - 30 mmol/L [facility] POTASSIUM 4.6 3.5 - 4.9 mmol/L [facility] CREATININE 2.22(H) 0.67 - 1.17 mg/dL [facility] Comment:Significant change f rom prior result, correlate clinically and redraw if necessary. BUN 36(H) 6 - 20 mg/dL [facility] GLUCOSE 134(H) 65 - 99 mg/dL [facility] CHLORIDE 109(H) 96 - 108 mmol/L [facility] SODIUM 137 135 - 145 mmol/L [facility] CALCIUM 8.3(L) 8.6 - 10.2 mg/dL [facility] GFR, 36(L) >=60 mL/min/1. 7 sq meter [facility] GFR 30(L) >=60 mL/min/1. 7 sq meter [facility] Comment: Modification of Diet in Renal Disease (MDRD) study formula. Estimated GFR rate interpretative information for both Americans and non- Americans is available on the [facility] Intranet at: [email or web address] Select: Lab Policies and Procedures Select: Reference Ranges - GFR Blood specimen (specimen) 12/18/2008 9:00 PM CDT 12/18/2008 9:02 PM CDT us Altaf Velazquez MD CHEMISTRY ORDERABLES Edited [facility] CLIA# [id number] [address] [place] [place] [address] * (ABNORMAL) CBC WITH DIFFERENTIAL (12/18/2008 9:00 PM CDT) MCH 30.1 27.2 - 32.6 pg [facility] MPV 11.0 9.3 - 12.4 fL [facility] HEMATOCRIT 31.5(L) 40.0 - 48.0 % [facility] RDW-STDEV 45.9 37.1 - 48.7 fL [facility] RBC 3.59(L) 4.50 - 5.40 M/uL [facility] MCHC 34.3 31.5 - 35.5 % [facility] MCV 87.7 82.0 - 99.0 fL [facility] PLATELETS 175 140 - 350 K/uL [facility] HEMOGLOBIN 10.8(L) 13.6 - 16.5 g/dL [facility] RDW 14.2 11.5 - 14.5 % [facility] WBC 15.2(H) 4.0 - 9.8 K/uL [facility] BASOPHILS 0 0 - 2 % [facility] BASOPHILS ABSOLUTE 0.00 0.00 - 0.20 K/uL [facility] MONOCYTES 7 3 - 13 % [facility] MONOCYTE ABSOLUTE 0.99 0.10 - 1.30 K/uL [facility] NEUTROPHILS 87(H) 45 - 70 % [facility] NEUTROPHIL ABSOLUTE 13.23(H) 1.90 - 7.00 K/uL [facility] EOSINOPHILS 0 0 - 7 % [facility] EOSINOPHIL ABSOLUTE 0.00 0.00 - 0.70 K/uL [facility] LYMPHOCYTES 6(L) 16 - 45 % [facility] LYMPHOCYTE ABSOLUTE 0.98 0.70 - 4.50 K/uL [facility] Blood specimen (specimen) 12/18/2008 9:00 PM CDT 12/18/2008 9:02 PM CDT us Altaf Velazquez MD HEMATOLOGY ORDERABLES Edited [facility] CLIA# [id number] [address] [place] [address] * (ABNORMAL) POC BLOOD GAS (12/18/2008 6:04 PM CDT) LACTIC ACID 0.8 0.5 - 2.2 mmol/L [facility] PO2 ARTERIAL 256(H) 83 - 108 mm Hg [facility] SODIUM POC 134(L) 135 - 145 mmol/L [facility] PH ARTERIAL 7.27(L) 7.35 - 7.45 [facility] BASE EXCESS ABG -2.7(L) -2.0 - 3.0 mmol/L [facility] GLUCOSE POC 120(H) 65 - 99 mg/dL [facility] HEMATOCRIT POC 28.0(L) 40.0 - 48.0 % [facility] O2 SAT EST ABG POC 100(H) 95 - 99 % [facility] TCO2, ABG POC 26(H) 19 - 24 mmol/L [facility] POTASSIUM POC 4.2 3.5 - 4.9 mmol/L [facility] PCO2 ARTERIAL 53(H) 35 - 48 mm Hg [facility] COMMENT, GASES POC NOTIFIED [facility] HCO3 ARTERIAL 24 22 - 26 mmol/L [facility] PATIENT'S TEMPERATURE 37.0 Degree C [facility] CALICUM IONIZED, WHOLE BLOOD 5.17(H) 4.76 - 5.16 mg/dL [facility] Blood specimen (specimen) 12/18/2008 6:04 PM CDT 12/18/2008 6:04 PM CDT us Altaf Velazquez MD ABG ORDERABLES Final Result Performing Organization Address [facility] Co de Phone Number [facility] CLIA# [id number] [address] [place] [address] * POC ACTIVATED CLOTTING TIME (12/18/2008 5:32 PM CDT) ACT POC 207 Seconds [facility] Comment: Note sheath pull range change effective 11/01/2005. ACT value for sheath pull at [facility] has been established to be < or = to 140. (See also Nursing Procedures for sheath pull in related nursing areas) Blood specimen (specimen) 12/18/2008 5:32 PM CDT 12/18/2008 5:32 PM CDT us Altaf Velazquez MD POINT OF CARE TESTING Final Re sult Performing Organization Address City/[facility]/ZIP Co de Phone Number [facility] CLIA# [id number] [address] [place] [address] * (ABNORMAL) POC BLOOD GAS (12/18/2008 5:19 PM CDT) O2 SAT EST ABG POC 100(H) 95 - 99 % [facility] LACTIC ACID 0.9 0.5 - 2.2 mmol/L [facility] POTASSIUM POC 4.1 3.5 - 4.9 mmol/L [facility] PCO2 ARTERIAL 45 35 - 48 mm Hg [facility] COMMENT, GASES POC NOTIFIED [facility] HCO3 ARTERIAL 25 22 - 26 mmol/L [facility] PATIENT'S TEMPERATURE 37.0 Degree C [facility] CALICUM IONIZED, WHOLE BLOOD 4.33(L) 4.76 - 5.16 mg/dL [facility] GLUCOSE POC 119(H) 65 - 99 mg/dL [facility] PO2 ARTERIAL 322(H) 83 - 108 mm Hg [facility] SODIUM POC 132(L) 135 - 145 mmol/L [facility] PH ARTERIAL 7.35(L) 7.35 - 7.45 [facility] BASE EXCESS ABG -0.9 -2.0 - 3.0 mmol/L [facility] HEMATOCRIT POC 30.0(L) 40.0 - 48.0 % [facility] Blood specimen (specimen) 12/18/2008 5:19 PM CDT 12/18/2008 5:19 PM CDT us Altaf Velazquez MD ABG ORDERABLES Final Result [facility] CLIA# [id number] [address] [place] [address] * PATHOLOGY (12/18/2008 4:56 PM CDT) FINAL REPORT [facility] [address] [place], [place] [address] Patient: JANE BOCANEGRA : 1940 Procedure Date: 12/18/2008 Accession Date: 12/19/2008 Case No: [id number] Ordering Dr: ALTAF VELAZQUEZ Case type SW is performed by [facility], [place], [place]; all other case types are performed by [facility] [place] SURGICAL PATHOLOGY & NON-GYNECOLOGIC CYTOPATHOLOGY REPORT DIAGNOSIS SOFT TISSUE, RIGHT UPPER LEG, EXCISION: - FIBROSIS. Specimen Description: Right femoral artery scar tissue. Operative Procedure: AIF angiogram with bilateral leg run-off, right leg popliteal-tibial artery bypass with left leg harvest. Patient Information/Histo ry/Diagnosis: Not stated. Gross: Received in a single container labeled Jane Bocanegra, right femoral artery scar tissue is a 2.0 x 0.8 x 0.8-cm unoriented piece of irregular, pink-alvarado fibrous tissue. No skin is identified. The cut surface consists of yellow adipose tissue and dense white fibrous bands. The specimen is entirely submitted in cassette A1. KLA/TMZ 12.19.2008 01:03 pm Microscopic: The slide is labeled [id number] Jane Bocanegra. The specimen consists of lobules of mature adipose tissue by dense collagenous fibrous tissue. There is no evidence of inflammation. KHF/TMZ 12.20.2008 03:08 pm Staging Form: No. ELECTRONIC SIGNATURE FOR ELLIOTT LARA M.D.- 12/20/08 05:08 pm [facility] 12/18/2008 4:56 PM CDT us Altaf Velazquez MD PATHOLOGY/CYTOLOGY ORDERABLES Final Result [facility] CLIA# [id number] [address] [place] [address] * IR EXTREMITY ARTERIAL (12/18/2008 3:26 PM CDT) Anatomical Region Laterality Modality Other 12/18/2008 3:26 PM CDT Narrative 12/21/2008 3:07 PM CDT [facility] [address] [place], [place] [address] Admit Date: 12/18/2008 JANE BOCANEGRA Sex: Leland Admit Prov: ALTAF VELAZQUEZ Date: 1940 Primary Care Prov: MILTON ELLSWORTH CMRN: [id number] Room: [address] [place] [address] SSN: [id number] IMAGING SERVICES Ordering Prov: MARCUSDANYO Lashae Accession Number: [id number] Interpretation The procedure was performed in the Operating Room by Vascular Surgery. Please see the operative report for details. Dictated by: RADIOLOGY, DEPARTMENT O Electronically signed by: RADIOLOGY, DEPARTMENT 12/21/2008 15:06 Transcribed: 12/21/2008 14:54 AMK Procedure Note Radiology, Radiologist - 12/21/[address] [place], [place] [address] Admit Date: 12/18/2008 JANE BOCANEGRA Sex: M Admit Prov: ALTAF VELAZQUEZ Date: 1940 Primary Care Prov: MILTON ELLSWORTH CMRN: [id number] Room: [address] [place] [address] SSN: [id number] IMAGING SERVICES Ordering Prov: DANY VELAZQUEZO Lashae Interpretation The procedure was performed in the Operating Room by VascularSurgery. Please see the operative report for details. Dictated by: RADIOLOGY, DEPARTMENT O Electronically signed by: RADIOLOGY, DEPARTMENT 12/21/2008 15:06 Transcribed: 12/21/2008 14:54 AMK us Altaf Velazquez MD IR ORDERABLES Final Result * IR ARTERIOGRAM ABDOMINAL (12/18/2008 3:26 PM CDT) Anatomical Region Laterality Modality Abdomen Other 12/18/2008 3:26 PM CDT Narrative 12/21/2008 3:07 PM CDT [address] [address] Admit Date: 12/18/2008 JANE BOCANEGRA Sex: M Admit Prov: ALTAF VELAZQUEZ Date: 1940 Primary Care Prov: MILTON ELLSWORTH CMRN: [id number] Room: [address] [place] [address] SSN: [id number] IMAGING SERVICES Ordering Prov: ALTAF VELAZQUEZ Accession Number: [id number] Interpretation The procedure was performed in the Operating Room by Vascular Surgery. Please see the operative report for details. Dictated by: RADIOLOGY, DEPARTMENT O Electronically signed by: RADIOLOGY, DEPARTMENT 12/21/2008 15:06 Transcribed: 12/21/2008 14:54 AMK Procedure Note Radiology, Radiologist - 12/21/[address] [address] Admit Date: 12/18/2008 JANE BOCANEGRA Sex: M Admit Prov: ALTAF VELAZQUEZ Date: 1940 Primary Care Prov: MILTON ELLSWORTH CMRN: [id number] Room: [address] [place] [address] SSN: [id number] IMAGING SERVICES Ordering Prov: ALTAF VELAZQUEZ Interpretation The procedure was performed in the Operating Room by VascularSurgery. Please see the operative report for details. Dictated by: RADIOLOGY, DEPARTMENT O Electronically signed by: RADIOLOGY, DEPARTMENT 12/21/2008 15:06 Transcribed: 12/21/2008 14:54 AMK Altaf Velazquez MD IR ORDERABLES Final Result * TYPE AND CROSSMATCH (12/18/2008 1:26 PM CDT) ANTIBODY SCREEN Negative [facility] ABO/RH TYPE A Positive [facility] HISTORY CHECK History Checked [facility] SPECIMEN LIFE 3 days from drawdate [facility] Blood specimen (specimen) 12/18/2008 1:26 PM CDT us Giovany Barnhart MD BLOOD BANK ORDERABLES Edited INTERFACE SYSTEM Refer to clinic/hospital department [facility] CLIA# [id number] [address] [place] [address] * (ABNORMAL) PT AND APTT (12/18/2008 1:26 PM CDT) PROTIME 19.1(H) 12.7 - 15.1 Seconds [facility] INR 1.6(H) 0.9 - 1.1 [facility] Comment: INR Therapeutic Range: Adult: 2.0 - 3.0 for pulmonary embolism or prophylaxis against venous thrombosis or systemic embolization. 2.0 - 3.0 for patients with tissue heart valves. 2.5 - 3.5 for patients with mechanical heart valves or post ID. Pediatric (12 years and under): 1.5 - 3.0 Although the target range in children is not well established, INR values of 1.5 - 3.0 are recommended for most patients. Higher values have been used in children with prosthetic cardiac valves and hereditary clotting disorders. Elsa (<3 days) therapeutic ranges have not been established. PTT 42.7(H) 24.4 - 36.4 Seconds [facility] Comment: PTT Therapeutic Range: Heparin Level PTT (seconds) <0.10 units/mL <53 0.10 - 0.30 units/mL 53 - 67 0.30 - 0.70 units/mL* 67 - 95* 0.70 - 1.00 units/mL 95 - 116 *corresponds to therapeutic range for unfractionated heparin Blood specimen (specimen) 12/18/2008 1:26 PM CDT 12/18/2008 1:40 PM CDT Giovany Barnhart MD HEMATOLOGY ORDERABLES Edited [facility] CLIA# [id number] [address] [place] [address] * (ABNORMAL) CBC WITH DIFFERENTIAL (12/18/2008 1:06 PM CDT) HEMOGLOBIN 12.7(L) 13.6 - 16.5 g/dL [facility] RDW 14.2 11.5 - 14.5 % [facility] WBC 18.5(H) 4.0 - 9.8 K/uL [facility] MCH 29.8 27.2 - 32.6 pg [facility] MPV 11.5 9.3 - 12.4 fL [facility] HEMATOCRIT 37.3(L) 40.0 - 48.0 % [facility] RDW-STDEV 45.0 37.1 - 48.7 fL [facility] RBC 4.26(L) 4.50 - 5.40 M/uL [facility] MCHC 34.0 31.5 - 35.5 % [facility] MCV 87.6 82.0 - 99.0 fL [facility] PLATELETS 211 140 - 350 K/uL [facility] EOSINOPHILS 0 0 - 7 % [facility] EOSINOPHIL ABSOLUTE 0.01 0.00 - 0.70 K/uL [facility] LYMPHOCYTES 10(L) 16 - 45 % [facility] LYMPHOCYTE ABSOLUTE 1.81 0.70 - 4.50 K/uL [facility] BASOPHILS 0 0 - 2 % [facility] BASOPHILS ABSOLUTE 0.01 0.00 - 0.20 K/uL [facility] MONOCYTES 7 3 - 13 % [facility] MONOCYTE ABSOLUTE 1.38(H) 0.10 - 1.30 K/uL [facility] [facility] NEUTROPHILS 83(H) 45 - 70 % [facility] NEUTROPHIL ABSOLUTE 15.32(H) 1.90 - 7.00 K/uL [facility] Blood specimen (specimen) 12/18/2008 1:06 PM CDT 12/18/2008 1:12 PM CDT us Authorized P Er HEMATOLOGY ORDERABLES Edited [facility] CLIA# [id number] [address] [place], [place] [address] * (ABNORMAL) COMPREHENSIVE METABOLIC PANEL (12/18/2008 1:06 PM CDT) ALKALINE PHOSPHATASE 86 40 - 129 U/L [facility] CO2 23 22 - 30 mmol/L [facility] BILIRUBIN TOTAL 0.5 0.2 - 1.0 mg/dL [facility] POTASSIUM 4.0 3.5 - 4.9 mmol/L [facility] TOTAL PROTEIN 7.2 6.3 - 8.6 g/dL [facility] GLUCOSE 115(H) 65 - 99 mg/dL [facility] AST 33 12 - 38 U/L [facility] BUN 40(H) 6 - 20 mg/dL [facility] CALCIUM 8.9 8.6 - 10.2 mg/dL [facility] ALBUMIN 3.8 3.4 - 4.8 g/dL [facility] CHLORIDE 100 96 - 108 mmol/L [facility] CREATININE 3.11(H) 0.67 - 1.17 mg/dL [facility] ALT 25 0 - 41 U/L [facility] SODIUM 135 135 - 145 mmol/L [facility] GFR, 24(L) >=60 mL/min/1. 7 sq meter [facility] GFR 20(L) >=60 mL/min/1. 7 sq meter [facility] Comment: Modification of Diet in Renal Disease (MDRD) study formula. Estimated GFR rate interpretative information for both Americans and non- Americans is available on the [facility] Intranet at: [email or web address] Select: Lab Policies and Procedures Select: Reference Ranges - GFR Blood specimen (specimen) 12/18/2008 1:06 PM CDT 12/18/2008 1:12 PM CDT us Authorized P Er CHEMISTRY ORDERABLES Edited [facility] CLIA# [id number] [address] [place] [address] documented in this encounter Visit Diagnoses Not on filedocumented in this encounter Care Teams Bessemer Converter Operator Relationship Specialty Start Date End Date Milton Ellsworth MD PCP - General 04/28/15 documented as of this encounter
--- OUTSIDE RECORDS SUMMARY | 2024-10-12 11:23 | XMS_ITS | Encounter Summary ---
Author Organization [facility] Address 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 Gender Identity Not on file Sexual Orientation Not on file documented as of this encounter Plan of Treatment Not on file documented as of this encounter Procedures Procedure Name Priority Date/Time Associated Diagnosis Comments PT AND APTT Routine 03/18/2007 8:20 AM NEWSPAPER LIBRARY MANAGER PLATELET COUNT Routine 03/18/2007 8:20 AM NEWSPAPER LIBRARY MANAGER BUN Routine 03/18/2007 8:20 AM NEWSPAPER LIBRARY MANAGER CREATININE Routine 03/18/2007 8:20 AM NEWSPAPER LIBRARY MANAGER documented in this encounter Results * BUN (03/18/2007 8:20 AM NEWSPAPER LIBRARY MANAGER) BUN 16 6 - 20 mg/dL INTERFACE SYSTEM 03/18/2007 8:20 AM NEWSPAPER LIBRARY MANAGER us Ashok Tapia MD CHEMISTRY ORDERABLES Edited INTERFACE SYSTEM Refer to clinic/hospital department * CREATININE (03/18/2007 8:20 AM NEWSPAPER LIBRARY MANAGER) CREATININE 1.17 0.67 - 1.17 mg/dL INTERFACE SYSTEM 03/18/2007 8:20 AM NEWSPAPER LIBRARY MANAGER Ashok Tapia MD CHEMISTRY ORDERABLES Edited Performing Organization Address [facility] de Phone Number INTERFACE SYSTEM Refer to clinic/hospital department * PLATELET COUNT (03/18/2007 8:20 AM NEWSPAPER LIBRARY MANAGER) PLATELETS 217 140 - 350 K/uL INTERFACE SYSTEM MPV 11.2 9.3 - 12.4 fL INTERFACE SYSTEM 03/18/2007 8:20 AM NEWSPAPER LIBRARY MANAGER Ashok Tapia MD HEMATOLOGY ORDERABLES Edite d Performing Organization Address [facility] Phone Number INTERFACE SYSTEM Refer to clinic/hospital department * (ABNORMAL) PT AND APTT (03/18/2007 8:20 AM NEWSPAPER LIBRARY MANAGER) PROTIME 15.4(H) 12.7 - 15.1 Seconds INTERFACE SYSTEM INR 1.2(H) 0.9 - 1.1 INTERFACE SYSTEM Comment: INR Therapeutic Range: Adult: 2.0 - 3.0 for pulmonary embolism or prophylaxis against venous thrombosis or systemic embolization. 2.0 - 3.0 for patients with tissue heart valves. 2.5 - 3.5 for patients with mechanical heart valves or post VA. Pediatric (12 years and under): 1.5 - 3.0 Although the target range in children is not well established , INR values of 1.5 - 3.0 are recommended for most patients. Higher values have been used in children with prosthetic cardiac valves and hereditary clotting disorders. (<3 days) therapeutic ranges have not been established. PTT 28.2 24.4 - 36.4 Seconds INTERFACE SYSTEM Comment: PTT Therapeutic Range: Heparin Level PTT (seconds) <0.10 units/mL <53 0.10 - 0.30 units/mL 53 - 67 0.30 - 0.70 units/mL* 67 - 95* 0.70 - 1.00 units/mL 95 - 116 *corresponds to therapeutic range for unfractionated heparin 03/18/2007 8:20 AM NEWSPAPER LIBRARY MANAGER us Ashok Tapia MD HEMATOLOGY ORDERABLES Edite d INTERFACE SYSTEM Refer to clinic/hospital department documented in this encounter Visit Diagnoses Diagnosis Atherosclerosis of [place] arteries of the extremities, unspecified- Primary documented in this encounter Care Teams Lap Checker Relationship Specialty Start Date End Date Luis Ellsworth MD PCP - General 04/28/15 documented as of this encounter
--- OUTSIDE RECORDS SUMMARY | 2024-10-12 11:23 | XMS_ITS | Encounter Summary ---
Author Organization [facility] Address [address] [place] [address] Care Team Providers Care Cfo Name Role Phone Luis Ellsworth MD Primary Care Provider Zayda xiong Encounter Details Date Type Department Care Team (Latest Contact Info) Description 09/01/2006 Outpatient Historical HIS CARDIOPULMONARY Ashok Tapia MD NO ADDRESS ON FILE Follow-Up Examination, Following Other Surgery (Primary Dx) Social History Tobacco Use Types Packs/Day Years Used Date Smoking Tobacco: Never Assessed Sex and Gender Information Value Date Recorded Sex Assigned at Not on file Legal Sex Male 5:25 AM FIELD ADJUSTER Gender Identity Not on file Sexual Orientation Not on file documented as of this encounter Plan of Treatment Not on file documented as of this encounter Visit Diagnoses Diagnosis Follow-up examination, following other surgery- Primary documented in this encounter Care Teams Cfo Relationship Specialty Start Date End Date Luis Ellsworth MD PCP - General 04/28/15 documented as of this encounter
--- OUTSIDE RECORDS SUMMARY | 2024-10-12 11:24 | XMS_ITS | Encounter Summary ---
Author Organization [facility] Address [address] [place] [address] Care Team Providers Care Hall Porter Name Role Phone Juan Ching PA Primary Care Provider Clark Dunham MD Unavailable [phone] Ana Paula Schwartz NP Unavailable [phone] Woodrow Mayes MD Unavailable Mega Villagomez MD Unavailable [phone] Maxwell Acuña MD Unavailable [phone] Cezar Guillen MD Unavailable [phone] Ashok Walters MD Unavailable [phone] Monica Doan MD Unavailable Encounter Details Date Type Department Care Team (Late st Contact Info) Description 08/18/2024 Results Follow-Up [place] [id number] [address] Woodrow Mayes MD [address] [place] [address] [facility] [place] [address] [address] HR Holter Monitor Social History Tobacco Use Types Packs/Day Years [...] often do you attend chur ch or baptist services? More than 4 times per year 12/21/2020 Do you belong to any clubs o r organizations such as evangelical groups, unions, fraternal or athletic groups, or [...] place to sleep or slept in a senior care (including now)? No 12/21/2020 Personal Safety Answer Date Recorded Have you ever been in or are you currently in a harmful physical or emotional relationship or is someone making you feel afraid or unsafe? Denies 12/06/2023 Sex and Gender Information Value Date Recorded Sex Assigned at Not on file Legal Sex Male 7:14 PM EVENTS ASSOCIATE Gender Identity Not on file Sexual Orientation Not on file documented as of this encounter Plan of Treatment Not on file documented as of this encounter Goals Goal Patient Goal Type Associated Problems Recent Progress Patient-Stated? Author ACO SW Goal - Patient will be able to safely move about their home ACO Care Management On track(2020 9:44 AM CDT) Ratna Velázquez, JOB HONER Note: Problem: Barriers to Home Accessibility Interventions: - Assess home accessibility barriers. - Identify equipment or modifications needed to address barrier(s). - Research available resources to improve home accessibility. - Refer to appropriate resources or alternate housing options. documented as of this encounter Visit Diagnoses Not on filedocumented in this encounter Care Teams Hall Porter Relationship Specialty Start Date End Date Juan Ching PA [address] [facility] [address] [place] [address] PCP - General Internal Medicine 01/10/22 Clark Dunham MD [address] [place] [address] [address] [place] [address] Consulting Physician Nephrology 02/21/22 Ana Paula Schwartz NP [address] [place] [address] [address] [place] [address] Nurse Practitioner Medical Oncology 02/21/22 Woodrow Mayes MD [address] [facility] [facility] [place] [address] Consulting Physician Cardiology 02/21/22 Mega Villagomez MD [address] [place] [address] Referring Physician Orthopedic Surgery 02/21/22 Maxwell Acuña MD [address] [place] [address] Medical Oncologist/Hematologis t Hematology and Oncology 05/24/22 [place] [address] [address] Consulting Physician Cardiology 12/09/22 Ashok Walters MD [address] [place] [address] Referring Physician Dermatology 08/04/23 Monica Doan MD [address] [place] [id number] Consulting Physician Sleep Medicine 08/09/24 documented as of this encounter
--- OUTSIDE RECORDS SUMMARY | 2024-10-12 11:24 | XMS_ITS | Referral Summary ---
Author Organization [facility] Address [address] [place] [address] Care Team Providers Care Cloth Shearing Supervisor Name Role Phone Juan Ching Primary Care Provider Clark Dunham MD Unavailable [phone] Ana Paula Schwartz NP Unavailable [phone] Woodrow Mayes MD Unavailable [phone] Mega Villagomez MD Unavailable [phone] Maxwell Acuña MD Unavailable [phone] Cezar Guillen MD Unavailable [phone] Ashok Walters MD Unavailable [phone] Monica Doan MD Unavailable Encounters Date Type Department Care Team Description 5 9:45 AM CDT Clinical Support [facility] Primary Care at [address] [place] [phone] Paroxysmal A-fib (HCC) (Primary Dx); S/P TAVR (transcatheter aortic valve replacement) 5 Telephone [facility] at [address] [place] [phone] Juan Ching PA Medical Records Request 5 9:15 AM CDT Clinical Support [facility] Care at [address] [place] [address] Paroxysmal A-fib (HCC) (Primary Dx); S/P TAVR (transcatheter aortic valve replacement) 5 8:30 AM CDT Ancillary Procedure [facility] at [address] [place] [address] Pacemaker reprogramming/check (Primary Dx); Bradycardia; Heart block; Cardiac pacemaker in situ 5 8:30 AM CDT Office Visit [facility] at [address] [place] [address] Vikash Rahman NP Cardiac murmur (Primary Dx); Palpitations; Paroxysmal A-fib (HCC); Bradycardia; Heart block 5 10:15 AM CDT Clinical Support [facility] Care at [address] [place] [address] S/P TAVR (transcatheter aortic valve replacement) (Primary Dx); Paroxysmal A-fib (HCC) 5 [facility] Post Discharge Follow up phone call [address] [address] Johnna Amaya 5 Telephone [facility] Medical [facility] Gastroenterology at [address] [place] [address] [place] 5 8:10 AM CDT - 5 1:59 PM CDT Hospital Encounter [address] [address] Woodrow Mayes MD Bradycardia; Heart block Discharge Disposition: Discharge to home or self care 5 10:30 AM CDT - 5 12:30 PM CDT Surgery [facility] [address] [place] [address] Woodrow Mayes MD IMPLANT DUAL CHAMBER PPM SYSTEM W/ DUAL ELECTRODES (GEN AND LEADS, NEW OR REPLACE) [id number] 04/29/202 5 11:42 AM CDT Anesthesia Event [facility] [id number] [place] [address] Janny Mayorga DO Eldin, Ali S., MD 5 10:45 AM CDT Pre-Admission Testing [facility] Pre Anesthesia Testing [address] [place] [address] Pre-op testing (Primary Dx); Encounter for preadmission testing 5 Orders Only [facility] Primary Care at [address] [phone] Juan Ching PA Stage 3b chronic kidney disease (HCC) (Primary Dx); 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; Pure hypercholesterolemia; Iron deficiency anemia, unspecified iron deficiency anemia type; Vitamin D deficiency 5 1:15 PM CDT Office Visit [facility] at [address] [phone] Juan Ching PA Medicare annual wellness visit, subsequent (Primary Dx); Paroxysmal A-fib (HCC); Controlled type 2 diabetes mellitus with stage 3 chronic kidney disease, without long-term current use of insulin (HCC); Hypertension, essential; Stage 3a chronic kidney disease (HCC); Pure hypercholesterolemia; Secondary hyperparathyroidism of renal origin; 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; Chronic systolic (congestive) heart failure (HCC); Vitamin D deficiency; Pulmonary hypertension (HCC); Class 1 obesity with body mass index (BMI) of 30.0 to 30.9 in adult, unspecified obesity type, unspecified whether serious comorbidity present; Encounters for administrative purpose; Bradycardia 5 Orders Only [facility] [address] [place] [address] [address] [place] [address] Judith Gale MA Bradycardia (Primary Dx); Heart block; Cardiac pacemaker in situ; Pacemaker reprogramming/check 5 Results Follow-Up [facility] [id number] [place] [address] [address] [place] [address] Woodrow Mayes MD Transthoracic Echo (TTE) Complete W Doppler/CF 5 8:15 AM CDT Lab [address] Controlled type 2 diabetes mellitus with stage 2 chronic kidney disease, without long-term current use of insulin (HCC); Secondary hyperparathyroidism of renal origin; Iron deficiency anemia, unspecified iron deficiency anemia type; Vitamin D deficiency; Hypertension, essential 5 8:00 AM CDT Lab [address] 5 12:03 PM CDT - 5 11:59 PM CDT Hospital Encounter [facility] [address] [place] [address] Cardiac murmur Discharge Disposition: Discharge to home or self care 5 Orders Only [facility] at [address] [place] [address] Woodrow Mayes MD Cardiac murmur (Primary Dx) 5 Results Follow-Up [facility] [address] [address] Woodrow Mayes MD 48 HR Holter Monitor 5 Telephone [facility] Medical Group Primary Care at [address] [place] [address] Juan Ching PA Medical Question/Miscellaneous 5 Telephone [facility] Medical Group Gastroenterology at [address] [place] [address] Katia Lozada 5 10:50 AM CDT - 5 11:59 PM CDT Hospital Encounter [facility] [address] [place] [address] Palpitations Discharge Disposition: Discharge to home or self care 5 10:15 AM CDT Clinical Support [facility] Medical Group Primary Care at [address] [place] [address] Paroxysmal A-fib (HCC) (Primary Dx) 5 Telephone [facility] Medical [facility] Primary Care at [address] [place] [address] Juan Ching PA 5 1:15 PM CDT Lab [facility] at [address] [place] [address] Iron deficiency anemia due to chronic blood loss 5 1:45 PM CDT Office Visit [facility] [address] [place] [address] Medical [address] [place] [address] Ana Paula Schwartz, NICKI Iron deficiency anemia due to chronic blood loss (Primary Dx) 5 Telephone [facility] Care at [address] [place] [address] Juan Ching PA 5 10:45 AM CDT Office Visit [facility] at [address] [place] [address] Woodrow Mayes MD Paroxysmal A-fib (HCC) (Primary Dx); Palpitations from Last 3 Months Allergies Active Allergy Reactions Criticality Noted Date Comments Daptomycin Rash Medium 09/21/2009 Gabapentin Mental status changes Low 02/21/2022 Rifampin Unknown 11/14/2016 Medications latanoprost (XALATAN) 0.005 % ophthalmic solution Administer 1 drop into both eyes nightly 11/19/19 20 Active dorzolamide-ti moloL (COSOPT) 22.3-6.8 mg/mL ophthalmic solution Administer 1 drop into both eyes nightly 08/08/19 21 Active loratadine 10 mg capsule Take 10 mg by mouth every morning Active acetaminophen (TYLENOL) 500 mg tablet Take 1 tablet (500 mg total) by mouth every 6 (six) hours as needed Active ferrous sulfate 325 mg (65 mg of elemental iron) tablet Take 1 tablet (325 mg total) by mouth daily with dinner Active albuterol HFA (PROVENTIL HFA,VENTOLIN HFA,PROAIR HFA) 90 mcg/actuation inhaler INHALE 2 PUFFS EVERY 4 HOURS NEEDED FOR WHEEZING, SHORTNESS OF BREATH, OR COUGH 8.5 each 11 05/15/19 24 Active lisinopriL (PRINIVIL,ZEST RIL) 40 mg tablet Take 1 tablet (40 mg total) by mouth daily 90 tablet 4 10/01/19 24 Active Additional Information Patient taking differently:40 mg oralEvery morning, Reported on 09/23/2024 amLODIPine (NORVASC) 2.5 mg tablet Take 1 tablet (2.5 mg total) by mouth daily 90 tablet 4 04/21/20 24 025 Active clopidogreL (PLAVIX) 75 mg tablet TAKE 1 TABLET BY MOUTH EVERY DAY 90 tablet 3 07/16/19 25 Active rosuvastatin (CRESTOR) 40 mg tablet TAKE 1 TABLET BY MOUTH EVERY DAY 100 tablet 08/05/19 25 Active ezetimibe (ZETIA) 10 mg tablet TAKE 1 TABLET BY MOUTH EVERY DAY 90 tablet 08/05/19 25 Active zolpidem (AMBIEN) 10 mg tablet TAKE 1 TABLET BY MOUTH EVERY DAY AT BEDTIME NEEDED 90 tablet 1 08/05/19 25 Active ergocalciferol (VITAMIN D) 50,000 unit capsule Take 1 capsule (50,000 Units total) by mouth once a week 12 capsule 4 08/31/19 25 026 Active Additional Information Patient taking differently:50,000 Units oral Weekly,Friday, Reported on 09/23/2024 cyanocobalamin (Vitamin B-12) 500 mcg tabletIndicati ons:Prevention of Vitamin B12 Deficiency Take 1 tablet (500 mcg total) by mouth daily Active clobetasoL (TEMOVATE) 0.05 % cream APPLY TOPICALLY 2 TIMES A DAY NEEDED FOR RASH. 60 g 3 09/03/19 25 Active warfarin (COUMADIN) 3 mg tablet Take 1 tablet (3 mg total) by mouth daily Or as directed 30 tablet 11 09/09/[address] (PROTONIX) 20 mg EC tablet TAKE 1 TABLET BY MOUTH EVERY DAY 90 tablet 1 10/06/[address] (PROTONIX) 20 mg EC tablet TAKE 1 TABLET BY MOUTH EVERY DAY 90 tablet 1 04/12/20 24 025 Discontinued Active Problems Problem Noted Date Diagnosed Date S/P placement of cardiac pacemaker 09/07/2024 Bradycardia 08/25/2024 Heart block 08/25/2024 Pulmonary hypertension 08/23/2024 ABDULKADIR (obstructive sleep apnea) 06/11/2024 Anemia of chronic disease 04/21/2024 Secondary hyperparathyroidism of renal origin Chronic systolic (congestive) heart failure /05/2023 Platelets decreased 12/11/2023 S/P TAVR (transcatheter aortic valve replacement ) 12/03/2023 Pure hypercholesterolemia 01/29/2023 Paroxysmal A-fib 05/28/2022 Atherosclerosis of blackfeet ar teries of extremities with intermittent claudication, bilateral legs 04/17/2022 Overview (04/17/2022): Added automatically from request for surgery [id number] Primary insomnia 02/21/2022 Gastroesophageal reflux dise ase with esophagitis without hemorrhage 11/20/2021 Hiatal hernia 11/20/2021 Duodenal erosion 11/20/2021 Iron deficiency anemia due to chronic blood loss 02/14/2021 Assessment & Plan (02/14/2021 2:06 PM CDT): Last cnt 3 yrs ago and nl and hgb down to 8.3 and iron 7% no obvious source of bleeding not aware of. Will check s tools for blood and likley look at egd first and then maybwe colon Consider stopoing the coumai for ongoing loss and for back shot or egd Chronic bilateral low back pain with right-sided sciatica 02/01/2021 Assessment & Plan (08/20/2021 2:14 PM CDT): If not vascular then cosider neuroleptics Lumbar facet arthropathy with radiculopathy 01/11 DDD (degenerative disc disease), lumbar 02/02/20 [employer] current use of anticoagulant Hypertension, essential 12/29/2020 Assessment & Plan (08/30/2024 8:53 AM CDT): Recommend DASH diet, heart healthy lifestyle, exercise. Discussed the risks of hypertension. Assessment & Plan (04/21/2024 8:07 AM STOCK SPECULATOR): Recommend DASH diet, heart healthy lifestyle, exercise. Discussed the risks of hypertension. Assessment & Plan (12/11/2023 7:42 AM CDT): Recommend DASH diet, heart healthy lifestyle, exercise. Discussed the risks of hypertension. Assessment & Plan (08/04/2023 7:51 AM CDT): Recommend DASH diet, heart healthy lifestyle, exercise. Discussed the risks of hypertension. Assessment & Plan (01/29/2023 7:24 AM CDT): Recommend DASH diet, heart healthy lifestyle, exercise. Discussed the risks of hypertension. Assessment & Plan (08/09/2022 2:02 PM CDT): Recommend DASH diet, heart healthy lifestyle, exercise. Discussed the risks of hypertension. Assessment & Plan (02/14/2021 2:12 PM CDT): To try to minimize the worsening and possible improvement in the renal function there are several things to try to do. The patient should work to get off of (if on) drugs Like Prilosec/prevacid/protonix/nexium,etc. This does not include zantac/pepcid or Tagement. It ws shown that there is an increased risk of kidney dysfunction if you use Prilosec like meds.The patient should also stay off of regular use of scripted arthritis pills like Celebrex.mobic,naprosyn,etc. The over the counter pills of this nature are Advil/motrin/ibuprofen and aleve/naproxen. Regular use of these over the counter pills, Particularly at high doses and not scattered use of the meds also can harm the kidneys. yrly urine collectoin The htn good and no chags and renal screen stableHypertension, Medical treament revolves around weight control, salt management, and meds when necessary. long as weight loss is necessary and you are able to drop weight we can cont to monitor the blood pressure and not add meds. Once the weight is not changing then it becomes nesessary to add meds to be able to reach the goal bp. Assessment & Plan (12/29/2020 1:03 PM CDT): Recommend DASH diet, heart-healthy lifestyle, exercise. Discussed the risks of hypertension. Primary osteoarthritis of right knee 12/18/2020 Assessment & Plan (12/18/2020 1:41 PM CDT): r knee will put off for now and st raighten out back first Cardiac murmur 08/28/2020 Assessment & Plan (08/28/2020 9:09 AM CDT): [place] and check echo to eval on return Vitamin D deficiency 02/10/2020 Assessment & Plan (08/28/2020 9:16 AM CDT): Check vit d Assessment & Plan (02/10/2020 10:15 AM CDT): Check on reutn At moderate risk for fall 02/10/2020 Assessment & Plan (02/14/2021 2:09 PM CDT): [facility] [place] Assessment & Plan (02/10/2020 10:18 AM CDT): Mod fall risk Medicare annual wellness visit, subsequent 02/18 Assessment & Plan (08/30/2024 8:53 AM CDT): Discussed community resources and any need for referrals; will refer to services and programs to improve social engagement if indicated, as above. Reviewed social activities and engagement. Health risk assessment reviewed. Providers and care team suppliers up-to-date. Age-appropriate Medicare preventive services check list reviewed. Discussed physical activity. We reviewed home and community safety including driving. Refer to Medicare questions about suicidality and life satisfaction. Assessment & Plan (08/04/2023 7:51 AM CDT): Discussed community resources and any need for referrals. Health risk assessment reviewed. Providers and care team suppliers up-to-date. Age-appropriate Medicare preventive services check list reviewed. Discussed physical activity. Assessment & Plan (02/14/2021 2:21 PM CDT): Mod fall risk depreoisn scren neg score 0 cognitive screen nl up ot date on colon ps getting flu shot an dhad covid and bothp shots. md's dr lawson. Dr infante. No narcotics Assessment & Plan (02/10/2020 10:20 AM CDT): Mod fall risk depreisn screen nl cog screen nl flu shot today pshot up to date colon up to date. psa up tod ate. Consider shingles shot series Assessment & Plan (02/18/2019 11:14 AM CDT): psa screen on return Controlled type 2 diabetes toni vázquez with stage 2 chronic kidney disease, without long-term current use of insulin 09/15/2018 Assessment & Plan (08/30/2024 8:53 AM CDT): The patient was counseled on a heart-healthy, diabetic-friendly diet, as well as life-style modification. Education provided on the diagnosis and risks of the disease. We will continue to monitor routine labs. Additionally, the patient was counseled on routine diabetic eye exams, foot exams, and other preventive care. Assessment & Plan (12/11/2023 7:42 AM CDT): The patient was counseled on a heart-healthy, diabetic-friendly diet, as well as life-style modification. Education provided on the diagnosis and risks of the disease. We will continue to monitor routine labs. Additionally, the patient was counseled on routine diabetic eye exams, foot exams, and other preventive care. Assessment & Plan (08/04/2023 7:51 AM CDT): The patient was counseled on a heart-healthy, diabetic-friendly diet, as well as life-style modification. Education provided on the diagnosis and risks of the disease. We will continue to monitor routine labs. Additionally, He was counseled on routine diabetic eye exams, foot exams, and other preventive care. Assessment & Plan (08/20/2021 2:11 PM CDT): a1c at 6.1 and good. Renal stable Diabetes management or controll revolves around several core concepts : weight controll,controlling the intake of rapidly absorbed sugars(read simple carbs that get rapidly absorbed such as sweetened tea,sugared soda,fruit juices or portions of fruit over 1/2 cup at a time) as well at the need to increase the sugar burned up through an n increase in your baseline activity.Breads,potatotes(white,yellow,sweet are all the same),most cereals and noodles all breakdown to sugar rapidly. This rapid breakdown or absorption challenges the body into handling this surge of sugar. The more these factors are controlled the more the sugar will be controlled.To try to minimize the worsening and possible improvement in the renal function there are several things to try to do. The patient should work to get off of (if on) drugs Like Prilosec/prevacid/protonix/nexium,etc. This does not include zantac/pepcid or Tagement. It ws shown that there is an increased risk of kidney dysfunction if you use Prilosec like meds.The patient should also stay off of regular use of scripted arthritis pills like Celebrex.mobic,naprosyn,etc. The over the counter pills of this nature are Advil/motrin/ibuprofen and aleve/naproxen. Regular use of these over the counter pills, Particularly at high doses and not scattered use of the meds also can harm the kidneys. Assessment & Plan (03/28/2021 3:31 PM STOCK SPECULATOR): Given creat ddrift up will check 24 hre urine cr cl and confirm not mmajor player in the anemia Assessment & Plan (02/14/2021 2:08 PM CDT): a1c now 5.5 and creat stable at 1.53 so crf stable and y'l check and sugar leave alone And yr'ly check on 24 hr uine Assessment & Plan (08/28/2020 9:11 AM CDT): Cr cl stable at 60 and no changes cont limits on h8gh risk drugus.doye and sulfaTo try to minimize the worsening and possible improvement in the renal function there are several things to try to do. The patient should work to get off of (if on) drugs Like Prilosec/prevacid/protonix/nexium,etc. This does not include zantac/pepcid or Tagement. It ws shown that there is an increased risk of kidney dysfunction if you use Prilosec like meds.The patient should also stay off of regular use of scripted arthritis pills like Celebrex.mobic,naprosyn,etc. The over the counter pills of this nature are Advil/motrin/ibuprofen and aleve/naproxen. Regular use of these over the counter pills, Particularly at high doses and not scattered use of the meds also can harm the kidneys. Assessment & Plan (02/10/2020 10:12 AM CDT): Creat lower and aperas some better crf check 24 hr urien in returnTo try to minimize the worsening and possible improvement in the renal function there are several things to try to do. The patient should work to get off of (if on) drugs Like Prilosec/prevacid/protonix/nexium,etc. This does not include zantac/pepcid or Tagement. It ws shown that there is an increased risk of kidney dysfunction if you use Prilosec like meds.The patient should also stay off of regular use of scripted arthritis pills like Celebrex.mobic,naprosyn,etc. The over the counter pills of this nature are Advil/motrin/ibuprofen and aleve/naproxen. Regular use of these over the counter pills, Particularly at high doses and not scattered use of the meds also can harm the kidneys. Assessment & Plan (09/07/2019 4:01 PM CDT): The patient was counseled on a heart-healthy, diabetic-friendly diet, as well as life-style modification. Education provided on the diagnosis and risks of the disease. We will continue to monitor routine labs. Additionally, He was counseled on routine diabetic eye exams, foot exams, and other preventive care. Assessment & Plan (02/18/2019 11:08 AM CDT): Stable borderlilne gfr at 60 and check next ye. a1c at 6.0 and contmrlled. lmit Ppi. Assessment & Plan (09/15/2018 10:16 AM CDT): Screen looks worse and check renal sono and 24 hr urine to confirm if lost functnoi. On 20 bid and this needs to cut back and try for 1 a day and if tolerated then add zantac to sub. So 1 a day and if ok then every other day take then work off and strt Zantac 150 bid if needed. Seasonal allergic rhinitis due to fungal spores 01/30/2017 Assessment & Plan (01/30/2017 4:04 PM CDT): Repeated problem at this time of yr along with post grass cutting. This is allergic. Nasal steroid lead to bleeding. Trial singulair and In a week markedly better Or no different. If not different then not a responder. Nose spray add if needd. nl'ly not going to lead to a bleeding nose but watch for. Stage 3a chronic kidney disease 01/30/2017 Assessment & Plan (08/20/2021 2:12 PM CDT): Cr cl matches egfr with 25-30 above and supports cr cl 60's referral to renal for there idesase Assessment & Plan (02/14/2021 2:08 PM CDT): Creat at 1.53 stable Assessment & Plan (08/28/2020 9:12 AM CDT): gfr 60 and stableTo try to minimize the worsening and possible improvement in the renal function there are several things to try to do. The patient should work to get off of (if on) drugs Like Prilosec/prevacid/protonix/nexium,etc. This does not include zantac/pepcid or Tagement. It ws shown that there is an increased risk of kidney dysfunction if you use Prilosec like meds.The patient should also stay off of regular use of scripted arthritis pills like Celebrex.mobic,naprosyn,etc. The over the counter pills of this nature are Advil/motrin/ibuprofen and aleve/naproxen. Regular use of these over the counter pills, Particularly at high doses and not scattered use of the meds also can harm the kidneys. Assessment & Plan (11/10/2017 8:21 AM CDT): 24 hr lurine with gfr at 76 and 85 and above nl so relatively stable to toucoh [id number]. Reviewed drugs and re affermed that tylenol is very acceptable within a [place] [address] daily dose and not an isue for kidney'sTo try to minimize the worsening and possible improvement in the renal function there are several things to try to do. The patient should work to get off of (if on) drugs Like Prilosec/prevacid/protonix/nexium,etc. This does not include zantac/pepcid or Tagement. It ws shown that there is an increased risk of kidney dysfunction if you use Prilosec like meds.The patient should also stay off of regular use of scripted arthritis pills like Celebrex.mobic,naprosyn,etc. The over the counter pills of this nature are Advil/motrin/ibuprofen and aleve/naproxen. Regular use of these over the counter pills, Particularly at high doses and not scattered use of the meds also can harm the kidneys. Assessment & Plan (01/30/2017 4:08 PM CDT): Prior mildly of and frepeat return nl will check in springTo try to minimize the worsening and possible improvement in the renal function there are several things to try to do. The patient should work to get off of (if on) drugs Like Prilosec/prevacid/protonix/nexium,etc. This does not include zantac/pepcid or Tagement. It ws shown that there is an increased risk of kidney dysfunction if you use Prilosec like meds.The patient should also stay off of regular use of scripted arthritis pills like Celebrex.mobic,naprosyn,etc. The over the counter pills of this nature are Advil/motrin/ibuprofen and aleve/naproxen. Regular use of these over the counter pills, Particularly at high doses and not scattered use of the meds also can harm the kidneys. Nocturia 01/30/2017 Assessment & Plan (01/30/2017 4:09 PM CDT): Check psa on return Coronary artery disease of n ative artery of blackfeet heart with stable angina pectoris 10/21/2014 Overview (08/15/2016): CRNRY ATHRSCL NATVE VSSL Assessment & Plan (02/28/2022 11:24 AM CDT): Negative cardiac cath. Seeing cardiology for f/u today. Hoping to have clearance for knee replacement. Assessment & Plan (02/14/2021 2:09 PM CDT): Chest javed free and con tmeds Assessment & Plan (08/28/2020 9:09 AM CDT): Check pain stable on meds and cont as doing Assessment & Plan (02/10/2020 10:10 AM CDT): Cad and chest pain stable no changs Assessment & Plan (02/18/2019 11:09 AM CDT): Cad stable Assessment & Plan (09/15/2018 10:14 AM CDT): Heart stable and cont meds ans ee's card Assessment & Plan (11/10/2017 8:20 AM CDT): Chest pain free on meds. And risk controlled Bartholomew's esophagus 09/13/2013 Overview (08/15/2016): Barretts esophagus Assessment & Plan (03/28/2021 3:26 PM STOCK SPECULATOR): errosive esophagitis And egd this yr Assessment & Plan (08/28/2020 9:21 AM CDT): Not egd for yrs and brougoht up re checking egd if willing and for now won't go . Aware pre cancer screenings pepcid contorlling complaints and not thte risk of a ppi Assessment & Plan (02/18/2019 11:12 AM CDT): Reasons to take pi and crf a reason not to Resolved Problems Problem Noted Date Diagnosed Date Resolved Date PVD (peripheral vascular disease) 03/26/2024 08/23/2024 Nonrheumatic aortic valve stenosis 09/26/2023 08/23/2024 Class 1 obesity due to exces s calories with body mass index (BMI) of 30.0 to 30.9 in adult 07/17/2023 12/11/2023 Assessment & Plan (12/11/2023 7:42 AM CDT): The patient was counseled on the importance of maintaining a healthy weight and the risks of obesity. Weight loss recommended. Assessment & Plan (07/17/2023 10:50 AM STOCK SPECULATOR): Wt Readings from Last 3 Encounters: 07/17/23 98.9 kg (218 lb) 07/16/23 97 kg (213 lb 12.8 oz) 03/25/23 102.4 kg (225 lb 12.8 oz) Body mass index is 33.64 kg/m . -Chronic, improved -Discussed recommendations for exercise at least 30 minutes moderate to vigorous exercise as tolerated most days of the week. (minimum 150 minutes weekly) -Discussed importance of well-balanced diet. Acute pansinusitis 07/17/2023 Assessment & Plan (07/17/2023 1:56 PM STOCK SPECULATOR): -acute, one-month onset, worsening over past 2 weeks -reports congestion, cough, sinus pressure -OTC meds providing minimal relief -denies shortness of breath, ear pain, nausea, vomiting, diarrhea -Augmentin prescribed Impacted cerumen of left ear 07/17/2023 12/11/2023 Assessment & Plan (07/17/2023 1:58 PM STOCK SPECULATOR): -recurrent -patient reports decreased hearing from left ear -denies ear pain -large amount of cerumen moved from ear canal -TM within normal limits -mild erythema to ear canal -encouraged OTC Debrox drops as needed to help with ear wax buildup Nonrheumatic aortic valve stenosis 01/29/2023 12/11/2023 Hypotension 02/22/2022 08/09/2022 Assessment & Plan (02/28/2022 11:26 AM CDT): No further hypotensive episodes since hospital discharge. Abnormal nuclear stress test 02/07/2022 02/21/2022 Overview (02/07/2022): Added automatically from request for surgery [id number] Anemia of unknown etiology 11/20/2021 0 05/28/2022 Iron deficiency anemia secon gilson to blood loss (chronic) 03/13/2021 09/26/2022 Assessment & Plan (08/20/2021 2:11 PM CDT): Iron back to nl but anemia stable and wreferral to renal about crf being cauase of anemia Assessment & Plan (03/28/2021 3:28 PM STOCK SPECULATOR): Iron sat up to 18% and hgn thou at 8.4 and not muoch different. Will refer to hem to see if there if something elese going on given hgb not up as iron better. Get b12 to confirm not d roped now and a limiting factor Class 1 obesity with body ma ss index (BMI) of 32.0 to 32.9 in adult 02/14/2021 12/11/2023 Assessment & Plan (02/28/2022 11:25 AM CDT): BMI Follow-up includes: nutrition counseling. Weight has been stable. 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 12/18/2020 08/23/2024 Assessment & Plan (12/18/2020 1:39 PM CDT): r leg pinched And Pain stops him Referral to pain md and see if can't Help doing pt and cristin cont til seen no meds given risk with them and unlikely issees wiol help Foreign body in left ear 02/10/202010/2020 Assessment & Plan (02/10/2020 10:09 AM CDT): Pulled out Piece of hearing aid knew had lost hearing retuned to with out an dpain gone Puncture wound of finger of right hand 02/10/2020 05/28/2022 Assessment & Plan (02/10/2020 10:22 AM CDT): From duct blind work wash and wound care preport any signs infectno and tetnus update Bilateral impacted cerumen 12/23/2019 1 Assessment & Plan (12/23/2019 1:31 PM CDT): On inspecdtion botho ears full of wax flushed with water jet and easily removed both ears of was with imopved hearing after. discused monthly soaks and fluhses to prevent and what to do. Type 2 diabetes mellitus with hyperlipidemia 8 01/29/2023 Assessment & Plan (01/29/2023 7:23 AM CDT): The patient was counseled on a heart-healthy, diabetic-friendly diet, as well as life-style modification. Education provided on the diagnosis and risks of the disease. We will continue to monitor routine labs. Additionally, the patient was counseled on routine diabetic eye exams, foot exams, and other preventive care. Assessment & Plan (02/14/2021 2:14 PM CDT): ldl at 66 and keep meds same Your cholesterol in the form of ldl (bad) cholesterol,hdl(good) cholesterol and triglycerides are monitored. The triglycerides respond to reduction/controll of your simple carbs/sugars In such items as sugared soda/sweet tea along with fruit juices(containing natural sugar) even if no added sugar is added. LDL cholesterol is reduced with reducing daily intake of fats and kassidy. saturated fats. The monosaturated fats like olive oil are not harmful except in the calories they contained. Whole milk cheese needs to be remembered along with whole milk products And limited. Assessment & Plan (08/28/2020 9:14 AM CDT): ldl at 56 and great and no changes in medsYour cholesterol in the form of ldl (bad) cholesterol,hdl(good) cholesterol and triglycerides are monitored. The triglycerides respond to reduction/controll of your simple carbs/sugars In such items as sugared soda/sweet tea along with fruit juices(containing natural sugar) even if no added sugar is added. LDL cholesterol is reduced with reducing daily intake of fats and kassidy. saturated fats. The monosaturated fats like olive oil are not harmful except in the calories they contained. Whole milk cheese needs to be remembered along with whole milk products And limited. in meds Assessment & Plan (02/10/2020 10:12 AM CDT): ldl down to 56 qnd good and no changesYour cholesterol in the form of ldl (bad) cholesterol,hdl(good) cholesterol and triglycerides are monitored. The triglycerides respond to reduction/controll of your simple carbs/sugars In such items as sugared soda/sweet tea along with fruit juices(containing natural sugar) even if no added sugar is added. LDL cholesterol is reduced with reducing daily intake of fats and kassidy. saturated fats. The monosaturated fats like olive oil are not harmful except in the calories they contained. Whole milk cheese needs to be remembered along with whole milk products And limited. Assessment & Plan (02/18/2019 11:11 AM CDT): ldl at 82 and want to get lower if possibleYour cholesterol in the form of ldl (bad) cholesterol,hdl(good) cholesterol and triglycerides are monitored. The triglycerides respond to reduction/controll of your simple carbs/sugars In such items as sugared soda/sweet tea along with fruit juices(containing natural sugar) even if no added sugar is added. LDL cholesterol is reduced with reducing daily intake of fats and kassidy. saturated fats. The monosaturated fats like olive oil are not harmful except in the calories they contained. Whole milk cheese needs to be remembered along with whole milk products And limited. Assessment & Plan (09/15/2018 10:13 AM CDT): The ld at 99 and barely ok. On crestor 40 and zetia.10 and still barelyok . Consider binders. If goes higherYour cholesterol in the form of ldl (bad) cholesterol,hdl(good) cholesterol and triglycerides are monitored. The triglycerides respond to reduction/controll of your simple carbs/sugars In such items as sugared soda/sweet tea along with fruit juices(containing natural sugar) even if no added sugar is added. LDL cholesterol is reduced with reducing daily intake of fats and kassidy. saturated fats. The monosaturated fats like olive oil are not harmful except in the calories they contained. Whole milk cheese needs to be remembered along with whole milk products And limited. Assessment & Plan (02/23/2018 8:02 AM CDT): A1c 5.8 and stable. The patient was counseled on a heart-healthy, diabetic- friendly diet, as well as life-style modification. Education provided on the diagnosis and risks of the disease. We will continue to monitor routine labs. Additionally, the patient was counseled on routine diabetic eye exams, foot exams, and other preventive care. Assessment & Plan (11/10/2017 8:18 AM CDT): ldl at 81 and good. If not able to drop further would look at increased meds. a1c at 5.6 and nl. Your cholesterol in the form of ldl (bad) cholesterol,hdl(good) cholesterol and triglycerides are monitored. The triglycerides respond to reduction/controll of your simple carbs/sugars In such items as sugared soda/sweet tea along with fruit juices(containing natural sugar) even if no added sugar is added. LDL cholesterol is reduced with reducing daily intake of fats and kassidy. saturated fats. The monosaturated fats like olive oil are not harmful except in the calories they contained. Whole milk cheese needs to be remembered along with whole milk products And limited.Diabetes management or controll revolves around several core concepts : weight controll,controlling the intake of rapidly absorbed sugars(read simple carbs that get rapidly absorbed such as sweetened tea,sugared soda,fruit juices or portions of fruit over 1/2 cup at a time) as well at the need to increase the sugar burned up through an n increase in your baseline activity.Breads,potatotes(white,yellow,sweet are all the same),most cereals and noodles all breakdown to sugar rapidly. This rapid breakdown or absorption challenges the body into handling this surge of sugar. The more these factors are controlled the more the sugar will be controlled. BMI 33.0-33.9,adult 01/30/2017 02/15/20 Assessment & Plan (02/10/2020 10:12 AM CDT): Wt stable Assessment & Plan (11/10/2017 8:22 AM CDT): Being over weight is dealt with by restriction of you daily calories and increasing your calorie needs with increases in your work load/exercises or just increases in daily activity. There are different programs for weight loss and they all are felt to be relatively equally effective and you can make a choice as to what works for you. Type 2 diabetes mellitus wit h diabetic peripheral angiopathy without gangrene, without long-term current use of insulin 01/30/2017 01/29/2023 Assessment & Plan (08/09/2022 2:01 PM CDT): The patient was counseled on a heart-healthy, diabetic-friendly diet, as well as life-style modification. Education provided on the diagnosis and risks of the disease. We will continue to monitor routine labs. Additionally, the patient was counseled on routine diabetic eye exams, foot exams, and other preventive care. Assessment & Plan (02/28/2022 11:25 AM CDT): A1c in office was 5.7%. He is not currently on medication for diabetes. Will continue to monitor. Has PCP visit scheduled for May. Assessment & Plan (02/14/2021 2:13 PM CDT): Pad and ost op and on anticoag see's specialist for Assessment & Plan (08/28/2020 9:15 AM CDT): Table and withprior clots on coumadin at 1.9 and Trace low and leave but recheck and touch up meds if Drops any Assessment & Plan (02/10/2020 10:11 AM CDT): Chronic pain from surg site on r leg Non chagsd an dcirc stable watch feet for sores Assessment & Plan (02/18/2019 11:11 AM CDT): Pad stable and watch for sores Assessment & Plan (09/15/2018 10:21 AM CDT): Pad and se's circ md. Cont to check in withnwatch for sores. a1c at 5.9 and inching upDiabetes management or controll revolves around several core concepts : weight controll,controlling the intake of rapidly absorbed sugars(read simple carbs that get rapidly absorbed such as sweetened tea,sugared soda,fruit juices or portions of fruit over 1/2 cup at a time) as well at the need to increase the sugar burned up through an n increase in your baseline activity.Breads,potatotes(white,yellow,sweet are all the same),most cereals and noodles all breakdown to sugar rapidly. This rapid breakdown or absorption challenges the body into handling this surge of sugar. The more these factors are controlled the more the sugar will be controlled.protime 2.8 and good. Assessment & Plan (11/10/2017 8:19 AM CDT): Walk for work with circulation. qwtch for sores Assessment & Plan (01/30/2017 3:57 PM CDT): On blood thinners to keep open. Sugar screen good and urine protein back to nl. Check inspring. Cont meds and will check protime Type 2 diabetes mellitus wit h microalbuminuria, without long-term current use of insulin 11/23/2013 01/29/2023 Overview (08/16/2016): DMII CIRC NT ST UNCNTRLD Assessment & Plan (02/14/2021 2:15 PM CDT): Urine protein nl abnd On meds now Assessment & Plan (08/28/2020 9:13 AM CDT): Urine protein mildly up at 56 and and mildy up with meds to help suppress and recheck Assessment & Plan (02/18/2019 11:11 AM CDT): Check urine protein on return Assessment & Plan (11/18/2018 10:50 AM CDT): The patient was counseled on a heart-healthy, diabetic-friendly diet, as well as life-style modification. Education provided on the diagnosis and risks of the disease. We will continue to monitor routine labs. Additionally, He was counseled on routine diabetic eye exams, foot exams, and other preventive care. Assessment & Plan (09/15/2018 10:13 AM CDT): Check urine protein yr'ly Assessment & Plan (01/30/2017 3:56 PM CDT): fsting 111 and no changes. The urine protein last check nl and [place] in springDiabetes management or controll revolves around several core concepts : weight controll,controlling the intake of rapidly absorbed sugars(read simple carbs that get rapidly absorbed such as sweetened tea,sugared soda,fruit juices or portions of fruit over 1/2 cup at a time) as well at the need to increase the sugar burned up through an n increase in your baseline activity.Breads,potatotes(white,yellow,sweet are all the same),most cereals and noodles all breakdown to sugar rapidly. This rapid breakdown or absorption challenges the body into handling this surge of sugar. The more these factors are controlled the more the sugar will be controlled. Hypertension associated with diabetes 09/25/2013 05/28/2022 Overview (08/15/2016): BENIGN HYPERTENSION Assessment & Plan (02/28/2022 11:24 AM CDT): Blood pressure is at goal. Denies any dizziness or lightheadedness. Will not change any medications today. He has f/u with cardiology at 1pm today. Has f/u with PCP in May. His goal is to have Knee replacement with Dr. Villar in [place]. Assessment & Plan (08/20/2021 2:13 PM CDT): The bp good and see renal Hypertension, Medical treament revolves around weight control, salt management, and meds when necessary. long as weight loss is necessary and you are able to drop weight we can cont to monitor the blood pressure and not add meds. Once the weight is not changing then it becomes nesessary to add meds to be able to reach the goal bp. Assessment & Plan (03/28/2021 3:29 PM STOCK SPECULATOR): The bp good dn stay on meds And dietHypertension, Medical treament revolves around weight control, salt management, and meds when necessary. long as weight loss is necessary and you are able to drop weight we can cont to monitor the blood pressure and not add meds. Once the weight is not changing then it becomes nesessary to add meds to be able to reach the goal bp.Diabetes management or controll revolves around several core concepts : weight controll,controlling the intake of rapidly absorbed sugars(read simple carbs that get rapidly absorbed such as sweetened tea,sugared soda,fruit juices or portions of fruit over 1/2 cup at a time) as well at the need to increase the sugar burned up through an n increase in your baseline activity.Breads,potatotes(white,yellow,sweet are all the same),most cereals and noodles all breakdown to sugar rapidly. This rapid breakdown or absorption challenges the body into handling this surge of sugar. The more these factors are controlled the more the sugar will be controlled. Assessment & Plan (02/14/2021 2:12 PM CDT): The bp good and no changs and a1c at 6.3 good consider jardiance for card protectionHypertension, Medical treament revolves around weight control, salt management, and meds when necessary. long as weight loss is necessary and you are able to drop weight we can cont to monitor the blood pressure and not add meds. Once the weight is not changing then it becomes nesessary to add meds to be able to reach the goal bp. Assessment & Plan (08/28/2020 9:11 AM CDT): The bp good and no changs And a1c at And no chagse in meds for htn a1c at 5.8 and good and lower then last needs and needs eye evalHypertension, Medical treament revolves around weight control, salt management, and meds when necessary. long as weight loss is necessary and you are able to drop weight we can cont to monitor the blood pressure and not add meds. Once the weight is not changing then it becomes nesessary to add meds to be able to reach the goal bp.Diabetes management or controll revolves around several core concepts : weight controll,controlling the intake of rapidly absorbed sugars(read simple carbs that get rapidly absorbed such as sweetened tea,sugared soda,fruit juices or portions of fruit over 1/2 cup at a time) as well at the need to increase the sugar burned up through an n increase in your baseline activity.Breads,potatotes(white,yellow,sweet are all the same),most cereals and noodles all breakdown to sugar rapidly. This rapid breakdown or absorption challenges the body into handling this surge of sugar. The more these factors are controlled the more the sugar will be controlled. Assessment & Plan (02/10/2020 10:10 AM CDT): a1c c]drope dto 6.0 and good and htn good and no chags in meds for eaitherHypertension, Medical treament revolves around weight control, salt management, and meds when necessary. long as weight loss is necessary and you are able to drop weight we can cont to monitor the blood pressure and not add meds. Once the weight is not changing then it becomes nesessary to add meds to be able to reach the goal bp.Diabetes management or controll revolves around several core concepts : weight controll,controlling the intake of rapidly absorbed sugars(read simple carbs that get rapidly absorbed such as sweetened tea,sugared soda,fruit juices or portions of fruit over 1/2 cup at a time) as well at the need to increase the sugar burned up through an n increase in your baseline activity.Breads,potatotes(white,yellow,sweet are all the same),most cereals and noodles all breakdown to sugar rapidly. This rapid breakdown or absorption challenges the body into handling this surge of sugar. The more these factors are controlled the more the sugar will be controlled. Assessment & Plan (09/07/2019 4:01 PM CDT): Recommend DASH diet, heart-healthy lifestyle, exercise. Discussed the risks of hypertension. Assessment & Plan (02/18/2019 11:10 AM CDT): The bp good and no changes and a1c at 6.0 and stableHypertension, Medical treament revolves around weight control, salt management, and meds when necessary. long as weight loss is necessary and you are able to drop weight we can cont to monitor the blood pressure and not add meds. Once the weight is not changing then it becomes nesessary to add meds to be able to reach the goal bp.Diabetes management or controll revolves around several core concepts : weight controll,controlling the intake of rapidly absorbed sugars(read simple carbs that get rapidly absorbed such as sweetened tea,sugared soda,fruit juices or portions of fruit over 1/2 cup at a time) as well at the need to increase the sugar burned up through an n increase in your baseline activity.Breads,potatotes(white,yellow,sweet are all the same),most cereals and noodles all breakdown to sugar rapidly. This rapid breakdown or absorption challenges the body into handling this surge of sugar. The more these factors are controlled the more the sugar will be controlled. Assessment & Plan (11/18/2018 10:51 AM CDT): Recommend DASH diet, heart-healthy lifestyle, exercise. Discussed the risks of hypertension. Assessment & Plan (09/15/2018 10:14 AM CDT): The hbp ok and no chagers. Dropped the 2.5 and take 5mg of amlodipineHypertension, Medical treament revolves around weight control, salt management, and meds when necessary. long as weight loss is necessary and you are able to drop weight we can cont to monitor the blood pressure and not add meds. Once the weight is not changing then it becomes nesessary to add meds to be able to reach the goal bp. Assessment & Plan (02/23/2018 8:02 AM CDT): Recommend DASH diet, heart healthy lifestyle, exercise. Discussed the risks of hypertension. Assessment & Plan (11/10/2017 8:19 AM CDT): bp good here but needs to re view and confirm good as nowHypertension, Medical treament revolves around weight control, salt management, and meds when necessary. long as weight loss is necessary and you are able to drop weight we can cont to monitor the blood pressure and not add meds. Once the weight is not changing then it becomes nesessary to add meds to be able to reach the goal bp. Assessment & Plan (01/30/2017 3:54 PM CDT): The bp good and no coh angesHypertension, Medical treament revolves around weight control, salt management, and meds when necessary. long as weight loss is necessary and you are able to drop weight we can cont to monitor the blood pressure and not add meds. Once the weight is not changing then it becomes nesessary to add meds to be able to reach the goal bp. Multiple-type hyperlipidemia 09/25/2013 11/10/2017 Overview (08/15/2016): MIXED HYPERLIPIDEMIA Assessment & Plan (01/30/2017 3:56 PM CDT): ldl at 77 and good controll. No changesYour cholesterol in the form of ldl (bad) cholesterol,hdl(good) cholesterol and triglycerides are monitored. The triglycerides respond to reduction/controll of your simple carbs/sugars In such items as sugared soda/sweet tea along with fruit juices(containing natural sugar) even if no added sugar is added. LDL cholesterol is reduced with reducing daily intake of fats and kassidy. saturated fats. The monosaturated fats like olive oil are not harmful except in the calories they contained. Whole milk cheese needs to be remembered along with whole milk products And limited. Essential hypertension 09/13/201301/30 Overview (08/15/2016): Essential hypertension PAD (peripheral artery disease) 01/15/2012 08/23/2024 Overview (08/15/2016): PERIPH VASCULAR DIS NOS Assessment & Plan (12/18/2020 1:40 PM CDT): Will need to stop the coumadin with any inj in back and bve aware of Assessment & Plan (12/23/2019 1:32 PM CDT): On coumadin to prevent re clotting off . Upcoming dental extractoni. Asked about stopoingthe coumadin. I told him that he should only stop and only as long as the denatist said he had to and if didn't have to stop then not to. If does stop then resasrt the night of the Dental exterac tion. Risk /benefits discused. Assessment & Plan (11/10/2017 8:23 AM CDT): Given knee pain issue needs to work to keep from any elective surgery on legs. If limb losing issue or trulyo not tolerant then proceed but realoize at risk for elective surgery leading to loss of linmmb Vascular device, implant, or graft infection or inflammation 08/16/2009 02/26/2023 HTN (hypertension) 08/16/2009 3 Overview (06/10/2022): Added automatically from request for surgery [id number] Immunizations Immunization Administration Dates Next Due Influenza, Quadrivalent, Hig h Dose, Preservative Free, Intrr 02/26/2023,02/21/2022,02/14/2021,02/09 Influenza, Trivalent, High D ose, Split, Preservative Free, Intramuscular 03/04/2024,02/18/2019,02/23/2018,03/19,03/06/2016,02/28/2015,02/14/2014 ,02/15/2013 Influenza, Trivalent, IM (MDV) 02/19/2013 Influenza, Unspecified 02/26/2023(Deferr ed: Patient Refused),02/18/2023,12/18/2020(Deferre d: Patient Refused) Moderna SARS-CoV-2 Monovalen t Vaccination (12+ YRS) 03/27/2021,03/27/2021,03/27/2021,06/21,05/23/2020 Pneumococcal Conjugate PCV 13 02/28/2015 Pneumococcal Polysaccharide PPV23 02/23/2013 Td, adsorbed 02/10/2020,02/06/2011 ZOSTER Recombinant 03/02/2024,01/01/2024 Social History Tobacco Use Types Packs/Day Years Used Date Smoking Tobacco: Former Cigarettes 1 14 1 960 - 1973 Smokeless Tobacco: Never Tobacco Cessation:Counseling Given: Not Answered Alcohol Use Standard Drinks/Week Comments No 0 [...] week 12/21/2020 How often do you attend [facility] or mandae[facility] services? More than 4 times per year 12/21/2020 Do you belong to any clubs o r organizations such as religion groups, unions, fraternal or athletic groups, or [...] place to sleep or slept in a longterm (including now)? No 12/21/2020 Personal Safety Answer Date Recorded Have you ever been in or are you currently in a harmful physical or emotional relationship or is someone making you feel afraid or unsafe? Denies 09/07/2024 Sex and Gender Information Value Date Recorded Sex Assigned at Not on file Legal Sex Male 7:14 PM STOCK SPECULATOR Gender Identity Not on file Sexual Orientation Not on file Last Filed Vital Signs Vital Sign Reading Time Taken Comments Blood Pressure 148/78 09/23/2024 8:22 AM CDT Lg. Adult Cuff Pulse 65 09/23/2024 8:22 AM CDT Temperature 36.3 C (97.3 F) 09/08/2024 11:50 AM CDT Respiratory Rate 16 09/23/2024 8:22 AM CDT Oxygen Saturation 96% 09/08/2024 11: 50 AM CDT Inhaled Oxygen Concentration - - Weight 94.8 kg (209 lb) 09/23/2024 8:22 AM CDT Height 177.8 cm (5' 10) 09/23/2024 8:2 2 AM CDT Body Mass Index 29.99 09/23/2024 8:22 AM CDT Plan of Treatment Not on file Goals Goal Patient Goal Type Associated Problems Recent Progress Patient-Stated? Author ACO SW Goal - Patient will be able to safely move about their home ACO Care Management On track(2020 9:44 AM CDT) Ratna Velázquez, MACHINE OPERATOR HELPER Note: Problem: Barriers to Home Accessibility Interventions: - Assess home accessibility barriers. - Identify equipment or modifications needed to address barrier(s). - Research available resources to improve home accessibility. - Refer to appropriate resources or alternate housing options. Medical Devices Implanted Type Area Slate Worker Device Identifier Shelf Expiration Date Model / Serial / Lot Powell V[employer] Perclose 6fr Vascular Closure 97496-96 - [id number] Implanted:Qty: 1 on 05/16/2022 by Cezar Guillen MD at [facility] Other - see comments [employer] 09/09/2023 [id number] / / [id number] Terumo Medical Dania Angio-Seal Vip 6fr Closere Device [id number] - [id number] Implanted:Qty: 1 on 10/02/2023 by Cezar Guillen MD at [facility] Other - see comments [employer] Dania 05/19/2024 [id number] / / [id number] [employer] Inc Zilver Ptx 6mm 60mm 125cm Drug Elute Otw Delivery System [id number] - [id number] Implanted:Qty: 1 on 05/16/2022 by Cezar Guillen MD at [facility] Stent [employer] Inc 12/19/2023 [id number] / / [id number] Powell V[employer] System Closure Repair Femoral Artery Suture Mediated Perclose Prostyle 51310-65 - [id number] Implanted:Qty: 1 on 12/03/2023 by Cezar Guillen MD at [facility] [employer] 09/08/2025 [id number] / / [id number] Powell V[employer] System Closure Repair Femoral Artery Suture Mediated Perclose Prostyle 30315-32 - [id number] Implanted:Qty: 1 on 12/03/2023 by Cezar Guillen MD at [facility] [employer] 09/08/2025 [id number] / / [id number] Najera Lif[employer]iences Valve Aortic Trnscath Philip 3 Ultra Resilia 26mm [id number] - [id number] - [id number] Implanted:Qty: 1 on 12/03/2023 by Cezar Guillen MD at [facility] [employer] 10/04/2025 [id number] / [id number] / Medtronic Inc Everflex Entrust 7mm 20mm 150cm Self Expand Triaxial Low Profile - [id number] Implanted:Qty: 1 on 12/03/2023 by Cezar Guillen MD at [facility] Med[employer]onic Inc 08/26/2025 [id number] / / [id number] Mobile Angio-Seal Vip 6fr Closere Device [id number] - [id number] Implanted:Qty: 1 on 12/03/2023 by Cezar Guillen MD at [facility] [id number] / / Terumo Medical Codingpeople Angio-Seal Vip 6fr Closere Device [id number] - [id number] Implanted:Qty: 1 on 12/03/2023 by Cezar Guillen MD at [facility] Plix Dania [id number] / / Biotronik Inc Active Fixation Steroid Eluting Is 1 Connector Latex Free Sterile Atrial Ventricular Atrial Ventricular Solia 60cm [id number] - [id number] - [id number] Implanted:Qty: 1 on 09/07/2024 by Woodrow Mayes MD at [facility] Biotronik [facility] [id number] 07/09/2026 [id number] / [id number] / Biotronik Inc Active Fixation Steroid Eluting Is 1 Connector Latex Free Sterile Atrial Ventricular Atrial Ventricular Solia 53cm [id number] - [id number] - [id number] Implanted:Qty: 1 on 09/07/2024 by Woodrow Mayes MD at [facility] Biotronik [facility] [id number] 08/09/2026 [id number] / [id number] / Biotronik Inc Pacemaker Implantable Amvia Edge Dual Chamb Rate-Responsive [id number] - [id number] - [id number] Implanted:Qty: 1 on 09/07/2024 by Woodrow Mayes MD at [facility] [employer]otronik Inc [id number] 02/08/2026 [id number] / [id number] / Medtronic Inc Tyrx Absorbable Antibacterial Envelope Med 2.7x2.5in [id number] - [id number] Implanted:Qty: 1 on 09/07/2024 by Woodrow Mayes MD at [facility] [employer]onic Inc 06/16/2025 [id number] / / [id number] Procedures Procedure Name Priority Date/Time Associated Diagnosis Comments POCT INR Routine 10/07/2024 9:45 AM CDT Paroxysmal A-fib (HCC) S/P TAVR (transcatheter aortic valve replacement) POCT INR Routine 09/23/2024 9:12 AM CDT Paroxysmal A-fib (HCC) S/P TAVR (transcatheter aortic valve replacement) DEVICE CHECK - IN OFFICE Routine 09/23/2024 8:09 AM CDT Bradycardia Heart block Cardiac pacemaker in situ POCT INR Routine 09/15/2024 10:30 AM CDT S/P TAVR (transcatheter aortic valve replacement) Paroxysmal A-fib (HCC) ECG 12-LEAD Routine 09/08/2024 10:55 AM CDT POCT GLUCOSE DEVICE Routine 09/07/2024 5:03 PM CDT XR CHEST 1 VIEW IP Routine 09/07/2024 1:57 PM CDT POCT GLUCOSE DEVICE Routine 09/07/2024 1:24 PM CDT IMPLANT DUAL CHAMBER PPM SYSTEM W/ DUAL ELECTRODES (GEN AND LEADS, NEW OR REPLACE) Routine 09/07/2024 1:09 PM CDT Bradycardia Heart block PERIPHERAL LINE Routine 09/07/2024 1:03 PM CDT POCT GLUCOSE DEVICE Routine 09/07/2024 8:58 AM CDT EGFR Routine 09/07/2024 8:56 AM CDT DIFFERENTIAL AUTO Routine 09/07/2024 8:56 AM CDT PROTIME-INR Routine 09/07/2024 8:56 AM CDT CBC WITH AUTO DIFFERENTIAL Routine 09/07/2024 8:56 AM CDT BASIC METABOLIC PANEL Routine 09/07/2024 8:56 AM CDT ECG 12-LEAD Routine 09/01/2024 11:55 AM CDT Encounter for preadmission testing URINALYSIS AND REFLEX TO MICROSCOPIC AND CULTURE Routine 09/01/2024 11:31 AM CDT Encounter for preadmission testing POCT INR Routine 08/30/2024 1:30 PM CDT Medicare annual wellness visit, subsequent Paroxysmal A-fib (HCC) Controlled type 2 diabetes mellitus with stage 3 chronic kidney disease, without long-term current use of insulin (HCC) Hypertension, essential Stage 3a chronic kidney disease (HCC) Pure hypercholesterolemia 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 Chronic systolic (congestive) heart failure (HCC) Vitamin D deficiency Pulmonary hypertension (HCC) Class 1 obesity with body mass index (BMI) of 30.0 to 30.9 in adult, unspecified obesity type, unspecified whether serious comorbidity present Encounters for administrative purpose Bradycardia EGFR Routine 08/23/2024 8:04 AM CDT EGFR Routine 08/23/2024 8:04 AM CDT Hypertension, essential DIFFERENTIAL AUTO Routine 08/23/2024 8:04 AM CDT Hypertension, essential DIFFERENTIAL AUTO Routine 08/23/2024 8:04 AM CDT COMPREHENSIVE METABOLIC PANEL Routine 08/23/2024 8:04 AM CDT Hypertension, essential LIPID PANEL Routine 08/23/2024 8:04 AM CDT Hypertension, essential CBC WITH AUTO DIFFERENTIAL Routine 08/23/2024 8:04 AM CDT Hypertension, essential VITAMIN D 25 HYDROXY Routine 08/23/2024 8:04 AM CDT Vitamin D deficiency ALBUMIN CREATININE RATIO, URINE Routine 08/23/2024 8:04 AM CDT Controlled type 2 diabetes mellitus with stage 2 chronic kidney disease, without long-term current use of insulin (HCC) IRON PROFILE W/ IBC Routine 08/23/2024 8:04 AM CDT Iron deficiency anemia, unspecified iron deficiency anemia type PTH Routine 08/23/2024 8:04 AM CDT Secondary hyperparathyroidism of renal origin HEMOGLOBIN A1C Routine 08/23/2024 8:04 AM CDT Controlled type 2 diabetes mellitus with stage 2 chronic kidney disease, without long-term current use of insulin (HCC) IRON PROFILE W/ IBC Routine 08/23/2024 8:04 AM CDT PTH Routine 08/23/2024 8:04 AM CDT RENAL FUNCTION PANEL Routine 08/23/2024 8:04 AM CDT CBC WITH AUTO DIFFERENTIAL Routine 08/23/2024 8:04 AM CDT TRANSTHORACIC ECHO (TTE) COMPLETE W DOPPLER/CF WO CONTRAST Routine 08/19/2024 12:59 PM CDT Cardiac murmur HOLTER MONITOR 48 HR Routine 08/03/2024 10:52 AM CDT Palpitations POCT INR Routine 07/28/2024 10:33 AM CDT Paroxysmal A-fib (HCC) EGFR Routine 07/26/2024 12:40 PM CDT Iron deficiency anemia due to chronic blood loss DIFFERENTIAL AUTO Routine 07/26/2024 12:40 PM CDT Iron deficiency anemia due to chronic blood loss CBC WITH AUTO DIFFERENTIAL Routine 07/26/2024 12:40 PM CDT Iron deficiency anemia due to chronic blood loss FERRITIN Routine 07/26/2024 12:40 PM CDT Iron deficiency anemia due to chronic blood loss IRON PROFILE W/ IBC Routine 07/26/2024 12:40 PM CDT Iron deficiency anemia due to chronic blood loss COMPREHENSIVE METABOLIC PANEL Routine 07/26/2024 12:40 PM CDT Iron deficiency anemia due to chronic blood loss ECG 12-LEAD Routine 07/22/2024 11:13 AM CDT Paroxysmal A-fib (HCC) CTA ABDOMINAL AORTA AND BILATERAL ILIOFEMORAL RUNOFF Schedule Routine, Read Routine (OP Routine) 04/10/2022 2:46 PM STOCK SPECULATOR Claudication PSA SCREEN Routine 01/24/2022 10:42 AM CDT Screening PSA (prostate specific antigen) DIABETIC EYE EXAM Routine 01/01/2022 COLONOSCOPY 02/23/2021 12:58 PM CDT DIABETES FOOT EXAM Routine 10/01/2016 from Last 3 Months or Most Recently Relevant to Health Maintenance Results * POCT INR (10/07/2024 9:45 AM CDT) INR, POC 2.20 2.00 - 3.00 Blood Venous blood specimen / Unknown 10/07/2024 9:45 AM CDT Narrative Resulting Agency Comment Patient is taking 3 mg dailyGoal 2-3Dx: A-Fib, TAVRLab Results Component Value Date INR 2.2 10/07/2024 INR 2.00 09/23/2024 3 mg dailyLab Results Component Value Date INR 2.00 09/23/2024 INR 1.40 (A) 3 mg dailyLab Results Component Value Date INR 2.00 09/23/2024 INR 1.40 (A) 09/15/2024 INR 1.36 (H) 09/07/2024 0 mg daily Is the patient taking medication correctly? YesIs the patient feeling well? YesIs patient following prescribed diet? YesHas the patient had any recent changes to medications? NoDoes the patient have any b ruising or bleeding? NoHas the patient been hospitalized since the last PT/INR? NoIs the patient taking over the counter pain relievers? NoIs the pat ient taking multivitamins? NoDoes the patient have dental or other surgery scheduled in near future? No us Juan STONE POINT OF CARE TEST MY SKINNER Final Result * POCT INR (09/23/2024 9:12 AM CDT) INR, POC 2.00 2.00 - 3.00 Blood Venous blood specimen / Unknown 09/23/2024 9:12 AM CDT Narrative Resulting Agency Comment Patient is taking 3 mg dailyGoal 2-3Dx: A-fibLab Results Component Value Date INR 2.0 09/23/2024 INR 1.40 (A) 09/15/2024 3 mg dailyLab Results Component Value Date INR 1.40 (A) 09/15/2024 INR 1.36 (H) 09/07/2024 0 mg dailyLab Results Component Value Date INR 1.40 (A) 09/15/2024 INR 1.36 (H) 09/07/2024 INR 2.90 08/30/2024 3 mg daily Is the patient taking medication correctly? YesIs the patient feeling well? YesIs patient following prescribed diet? YesHas the patient had any recent changes to medications? NoDoes the patient have any bruis ing or bleeding? NoHas the patient been hospitalized since the last PT/INR? NoIs the patient taking over the counter pain relievers? NoIs the patient taking multivitamins? NoDoes the patient have dental or other surgery scheduled in near future? No us Juan STONE POINT OF CARE TEST MY SKINNER Final Result * DEVICE CHECK - IN OFFICE (09/23/2024 8:09 AM CDT) Anatomical Region Laterality Modality Other Narrative 09/23/2024 1:16 PM CDT Images from the original result were not included. 09/23/2024 [employer] in-office device check The complete report is attached to this Result Text in Coil Machine Supervisor Woodrow Mayes MD CV CARDIAC SERVICES OR OCEDURES Final Result * (ABNORMAL) POCT INR (09/15/2024 10:30 AM CDT) INR, POC 1.40(A) 2.00 - 3.00 Blood Venous blood specimen / Unknown 09/15/2024 10:30 AM CDT Narrative Resulting Agency Comment Patient is taking 3 mg dailyGoal 2-3Dx: A-FibLab Results Component Value Date INR 1.4 09/15/2024 INR 1.36 (H) 09/07/2024 0 mg daily; getting pacemakerLab Results Component Value Date INR 1.36 (H) 09/07/2024 INR 2.90 08/30/2024 3 mg dailyLab Results Component Value Date INR 1.36 (H) 09/07/2024 INR 2.90 INR 2.20 07/28/2024 3 mg daily Is the patient taking medication correctly? YesIs the patient feeling well? YesIs patient following prescribed diet? YesHas the patient had any recent changes to medications? NoDoes the patient have any bruising or bleeding? NoHas the patient been hospitalized since the last PT/INR? NoIs the patient taking over the counter pain relievers? NoIs the patient taking multivitamins? NoDoes the patient have dental or other surgery scheduled in near future? No Juan STONE POINT OF CARE TEST MY SKINNER Edited Result - Final * ECG 12 lead (09/08/2024 10:55 AM CDT) 09/08/2024 10:5 5 AM CDT Narrative [facility] - 09/08/2024 12:44 PM CDT Vent Rate: 65 bpm RR Interval: 915 msec OR Interval: 200 msec QRS Duration: 172 msec QT Interval: 472 msec QTC Interval: 484 msec P-R-T [place]: 47 - 13 - 178 degrees IMPRESSION: ELECTRONIC VENTRICULAR PACEMAKER ABNORMAL RHYTHM ECG Electronically Signed By: Dr. Chasity Naik [facility] Woodrow Mayes MD ECG ORDERABLES Final Result Performing Organization Address City/[facility]/ZIP Co de Phone Number [facility] [employer] [facility] * POCT glucose (09/07/2024 5:03 PM CDT) Glucose, POC 148 70 - 199 mg/dL POC Performer [id number] JOSEPH HERNANDEZ Blood 09/07/2024 5:03 PM CDT 09/07/2024 5:03 PM CDT Woodrow Mayes MD LAB POCT ORDERABLES - DEVICE Final Result JOSEPH [id number] [address] Department of Laboratories [place], [place] [id number] * XR Chest 1 Vw Portable (09/07/2024 1:57 PM CDT) Anatomical Region Laterality Modality Body, Chest N/A Computed Radiogr aphy 09/07/2024 2:23 PM CDT Impressions 09/07/2024 2:23 PM CDT No active pulmonary disease. Electronically signed by: Galileo Sabillon M.D. Narrative 09/07/2024 2:23 PM CDT EXAMINATION: XR CHEST 1 VIEW DATE: 09/07/2024 1:45 PM HISTORY: post ppm FINDINGS: Sternal wires and left subclavian transvenous pacemaker are present. Prosthetic heart valve is present. There is no infiltrate, effusion or pneumothorax. The heart is enlarged. Pulmonary vascularity is normal. Procedure Note Galileo Sabillon MD - 09/07/2024 EXAMINATION: XR CHEST 1 VIEW DATE: 09/07/2024 1:45 PM HISTORY: post ppm FINDINGS: Sternal wires and left subclavian transvenous pacemaker are present. Prosthetic heart valve is present. There is no infiltrate, effusion or pneumothorax. The heart is enlarged. Pulmonary vascularity is normal. IMPRESSION: No active pulmonary disease. Electronically signed by: Galileo Sabillon M.D. Woodrow Mayes MD IMG XR PROCEDURES Dhara l Result * POCT glucose (09/07/2024 1:24 PM CDT) Glucose, POC 134 70 - 199 mg/dL POC Performer [id number] JOSEPH HERNANDEZ Blood 09/07/2024 1:24 PM CDT 09/07/2024 1:24 PM CDT Woodrow Mayes MD LAB POCT ORDERABLES - DEVICE Final Result [facility] [address] Department [place] [address] * IMPLANT DUAL CHAMBER PPM SYSTEM W/ DUAL ELECTRODES (GEN AND LEADS, NEW OR REPLACE) (09/07/2024 1:09PM CDT) Anatomical Region Laterality Modality X-Ray Angiograph y 09/07/2024 Narrative 09/08/2024 10:54 AM CDT Tapos[employer] Job ID: [id number] Amphion Document ID: [id number] Dictated date/time: [id number] PACEMAKER IMPLANTATION An 84-year-old patient who underwent a TAVR several months ago. 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 A pacemaker was planned. PROCEDURES 1. Implantation of a dual-chamber pacemaker system, Biotronik. 2. Insertion of a Tyrx pouch. 3. Venogram. He was brought to the agriculture laborer. Left neck subclavicular is prepped in the usual sterile fashion. 1% lidocaine with epi was used. Venogram obtained. Pacemaker pocket was created. Access obtained axillary subclavian vein and 2 J-wires were advanced. Over the first J-wire, a 6 SafeSheath was advanced through which a Biotronik pacing lead [id number] was placed in the RV apex and screwed in place. This was a backup lead while we placed the RV pacing lead in the left bundle branch area. Through the second wire, a 9 SafeSheath was placed through which a 9-Luxembourger Selectra guiding catheter from [employer] was positioned in the left bundle branch block, septal area and monitoring the current of injury and impedance. The lead [id number] was advanced inside the septum. After adequate thresholds were confirmed, the Selectra sheath was slit and both the leads were secured to subcutaneous tissues using 0 Ethibond connected to a Enswersronik generator [id number], noted to be pacing and sensing appropriately. The pocket irrigated with antibiotic solution. Generator was placed in the pocket with 0 Ethibond header stitch and a Tyrx pouch. Deep tissues 2-0 Monocryl, superficial 4-0 Monocryl and topical Dermabond was applied. Chest x-ray, ECG will be obtained. Pain medications were ordered. THRESHOLDS In the atrium 1.8 mV, 0.9 V, 0.4 milliseconds, 486 ohms, RV septum left bundle branch block area 16 mV, 0.6 V, 0.4 millisecond, 762 ohms. No extracardiac stimulation with 10 V cardiac pacing stimulus. IMPRESSION 1. Successful implantation of a dual-chamber pacemaker system with the RV pacing lead in the left bundle branch area. 2. Tyrx pouch insertion. 3. Venogram. Job ID/Internal Job ID: [id number] us Lalithkumar K. Gerber MD CV ELECTROPHYSIOLOGY P ROCS Final Result * Peripheral IV Catheter (09/07/2024 1:03 PM CDT) Narrative Anthony Sim CRNA - 09/07/2024 1:03 PM CDT Anthony Sim CRNA 09/07/2024 1:04 PM Peripheral IV Catheter Patient location: OR Staff: Placed by: STUNT WOMAN: Anthony Sim CRNA Preprocedure prep: Prep solution: chlorhexadine PPE: gloves and provider hat/mask PIV line: Laterality: right Site: forearm Catheter size: 20 g Technique: anatomical landmarks Procedure details: good blood return Number of attempts: 2 Assessment: Events: patient tolerated procedure well with no complications Janny Hannah Tierra DO ANESTHESIA ORDERABLES Final Result * POCT glucose (09/07/2024 8:58 AM CDT) Pathologist [facility] Glucose, POC 78 70 - 199 mg/dL POC Performer [id number] JOSEPH HERNANDEZ Blood 09/07/2024 8:58 AM CDT 09/07/2024 8:58 AM CDT Woodrow Mayes MD LAB POCT ORDERABLES - DEVICE Final Result [facility] [id number] [facility] Department [place] [address] * (ABNORMAL) eGFR (09/07/2024 8:56 AM CDT) eGFR 52(L) >=60 mL/min/1. 73 m2 Comment: Interpretive Data Reference Interval Normal >/= 90 mL/min/1.73m2 Mildly decreased* 60 - 89 mL/min/1.73m2 Mildly to moderately decreased 45 - 59 mL/min/1.73m2 Moderately to severely decreased 30 - 44 mL/min/1.73m2 Severely decreased 15 - 29 mL/min/1.73m2 Kidney Failure < 15 mL/min/1.73m2 *Relative to young adult level Estimated glomerular filtration rate is determined by the 2020 CKD-EPI equation recommended by the National Kidney Foundation (A Unifying Approach to GFR Estimation: Recommendations of the NKF-ASK Task Force on Reassessing the Inclusion of Race in Diagnosing Kidney Disease, JASN 2020). The CKD-EPI equation should not be used for patients with unstable renal function and has not been validated in children and those over 70. Current interpretive data was last reviewed 2021. Blood 09/07/2024 8:56 AM CDT 09/07/2024 9:04 AM CDT us Woodrow Mayes MD LAB BLOOD ORDERABLES F inal Result [facility] [address] Department [place] [address] * (ABNORMAL) Differential, auto (09/07/2024 8:56 AM CDT) Neutrophil abs 3.95 1.50 - 6.50 K/cumm Imm gran abs 0.02 0.00 - 0.10 K/cumm [facility] Lymphocyte abs 1.28 0.80 - 3.30 K/cumm [facility] Monocyte abs 0.84(H) 0.20 - 0.80 K/cumm [facility] Eosinophil abs 0.22 0.00 - 0.50 K/cumm [facility] Basophil abs 0.04 0.00 - 0.10 K/cumm [facility] Neutrophil pct 62.2 % [facility] Comment: Interpretive Data Percent cell count reference ranges are not reported, since discordance with absolute values may lead to misinterpretation of CBC data. Current Interpretive Data was last revised on 2017. Imm gran pct 0.3 % [facility] Comment: Interpretive Data Percent cell count reference ranges are not reported, since discordance with absolute values may lead to misinterpretation of CBC data. Current Interpretive Data was last revised on 2017. Lymphocyte pct 20.2 % [facility] Comment: Interpretive Data Percent cell count reference ranges are not reported, since discordance with absolute values may lead to misinterpretation of CBC data. Current Interpretive Data was last revised on 2017. Monocyte pct 13.2 % [facility] Comment: Interpretive Data Percent cell count reference ranges are not reported, since discordance with absolute values may lead to misinterpretation of CBC data. Current Interpretive Data was last revised on 2017. Eosinophil pct 3.5 % [facility] Comment: Interpretive Data Percent cell count reference ranges are not reported, since discordance with absolute values may lead to misinterpretation of CBC data. Current Interpretive Data was last revised on 2017. Basophil pct 0.6 % [facility] Comment: Interpretive Data Percent cell count reference ranges are not reported, since discordance with absolute values may lead to misinterpretation of CBC data. Current Interpretive Data was last revised on 2017. Blood 09/07/2024 8:56 AM CDT 09/07/2024 9:04 AM CDT Woodrow Mayes MD LAB BLOOD ORDERABLES F inal Result [facility] [id number] [address] Department [place] [address] * (ABNORMAL) CBC with auto differential (09/07/2024 8:56 AM CDT) WBC 6.35 3.80 - 9.90 K/cumm Hgb 11.6(L) 13.0 - 17.5 g/dL [facility] Hct 36.3(L) 38.9 - 50.3 % [facility] Plt 144(L) 150 - 400 K/cumm [facility] MPV 11.0 9.1 - 12.3 fL [facility] RBC 3.64(L) 4.30 - 5.80 M/cumm [facility] MCV 99.7(H) 81.3 - 96.4 fL [facility] MCH 31.9 27.1 - 33.3 pg [facility] MCHC 32.0(L) 32.3 - 35.7 g/dL [facility] RDW CV 13.5 11.1 - 14.9 % [facility] RDW SD 49.3(H) 35.7 - 48.1 fL [facility] NRBC abs 0.00 0.00 - 0.01 K/cumm [facility] Blood 09/07/2024 8:56 AM CDT 09/07/2024 9:04 AM CDT Narrative [facility] - 09/07/2024 9:27 AM CDT If most recent labs were drawn prior to 4 AM, draw only prior to initiating procedure. Woodrow Mayes MD LAB BLOOD ORDERABLES F inal Result Performing Organization Address [facility] Co de Phone Number [facility] [id number] [address] Department [place] [address] * (ABNORMAL) Protime-INR (09/07/2024 8:56 AM CDT) PT 14.8(H) 9.7 - 13.0 sec INR 1.36(H) 0.90 - 1.20 JOSEPH Comment: Interpretive data Oral anticoagulant therapeutic ranges: Venous thromboembolism prophylaxis or treatment: 2.0-3.0 CARDIOLOGY Standard range: 2.0-3.0 High-intensity range: 2.5-3.5 Refer to indication-specific guidelines for appropriate target ranges for prosthetic heart valve replacement. Current interpretive data was last revised on 2019. Blood 09/07/2024 8:56 AM CDT 09/07/2024 9:04 AM CDT Woodrow Mayes MD LAB BLOOD ORDERABLES F inal Result Performing Organization Address City/[facility] Co de Phone Number [facility] [id number] [address] Department [place] [address] * (ABNORMAL) Basic metabolic panel (09/07/2024 8:56 AM CDT) Sodium 141 135 - 145 mmol/L Potassium, pl 4.3 3.3 - 4.9 mmol/L [facility] Chloride 105 97 - 110 mmol/L [facility] CO2 24 22 - 32 mmol/L [facility] Anion gap 12 2 - 15 mmol/L [facility] BUN 20 6 - 25 mg/dL [facility] Creatinine 1.35(H) 0.80 - 1.30 mg/dL [facility] Glucose 93 70 - 199 mg/dL [facility] Comment: Interpretive Data Fasting glucose >/= 126 mg/dl is diagnostic for diabetes. Fasting is defined as no caloric intake for at least 8 hours. Fasting glucose between 100 mg/dl to 125 mg/dl is diagnostic of prediabetes. In a patient with classic symptoms of hyperglycemia or hyperglycemic crisis, a random glucose >/= 200 mg/dl is diagnostic for diabetes. In the absence of unequivocal hyperglycemia, results should be confirmed by repeat testing. The classification and Diagnosis of Diabetes Diabetes Care 202; 46: S19-S40. Current interpretive data was last revised 2022. Calcium 9.1 8.5 - 10.3 mg/dL [facility] Blood 09/07/2024 8:56 AM CDT 09/07/2024 9:04 AM CDT Woodrow Mayes MD LAB BLOOD ORDERABLES F inal Result Performing Organization Address [facility] Co de Phone Number [facility] [address] [address] Department of Laboratories [place] [phone] * ECG 12 lead (09/01/2024 11:55 AM CDT) 09/01/2024 11:5 5 AM CDT Narrative [facility] - 09/01/2024 7:42 PM CDT Vent Rate: 62 bpm RR Interval: 966 msec OR Interval: 229 msec QRS Duration: 165 msec QT Interval: 450 msec QTC Interval: 454 msec P-R-T [place]: 57 - -47 - 118 degrees IMPRESSION: SINUS RHYTHM WITH FIRST DEGREE AV BLOCK MARKED LEFT AXIS DEVIATION LEFT BUNDLE BRANCH BLOCK ABNORMAL ECG Electronically Signed By: Dr. Chasity Naik [facility] Karen Knight NP ECG ORDERABLES Final Result Performing Organization Address [facility] Co de Phone Number [facility] [employer] [facility] * Urinalysis reflex to microscopic and culture Urine (09/01/2024 11:31 AM CDT) Color, ur Yellow Yellow Clarity, ur Clear Clear [facility] Specific gravity, ur 1.010 1.003 - 1.030 [facility] pH, urine 6.0 [facility] Comment: Interpretive Data U rine pH is affected by diet, medications, systemic acid-base disturbances, and renal tubular function. pH may affect urinary stone formation. For example, urine pH below 6.0 may help reduce the tendency for calcium phosphate stones and pH greater than 6.0 may reduce the tendency for uric acid stone formation. Source: [facility] Current Interpretive Data was last revised on 2017 Protein, ur ql Negative Negative [facility] Glucose, ur ql Negative Negative [facility] Ketones, ur Negative Negative [facility] Bilirubin, ur Negative Negative [facility] Blood, ur Negative Negative [facility] Urobilinogen, ur <2.0 <2.0 mg/dL [facility] Nitrite, ur Negative Negative [facility] Leukocyte esterase, ur Negative Negative [facility] UA reflex comment Reflex conditions for microscopic UA and culture not met. [facility] Urine 09/01/2024 11:3 1 AM CDT 09/01/2024 1:36 PM CDT us Karen Knight NP LAB MICROBIOLOGY - GENERAL ORD ERABLES Final Result JOSEPH [id number] Department [place] [address] * POCT INR (08/30/2024 1:30 PM CDT) Pathologist [facility] INR, POC 2.90 2.00 - 3.00 Blood Venous blood specimen / Unknown 08/30/2024 1:30 PM CDT Narrative Resulting Agency Comment Patient is taking 3 mg dailyGoal 2-3Dx: A-FibLab Results Component Value Date INR 2.9 08/30/2024 INR 2.20 3 mg dailyLab Results Component Value Date INR 2.20 07/28/2024 INR 2.30 07/02/2024 3 mg dailyLab Results Component Value Date INR 2.20 07/28/2024 INR 2.30 07/02/2024 IN R 2.60 06/03/2024 3 mg dailyIs the patient taking medication correctly? YesIs the patient feeling well? YesIs patient following prescribed diet? YesHas the patient had any recent changes to medications? NoDoes the patient have any bruising or bleeding? NoHas the patient been hospitalized since the last PT/INR? NoIs the patient taking over the counter pain relievers? NoIs the patient hubert ing multivitamins? NoDoes the patient have dental or other surgery scheduled in near future? Yes pacemaker later this week .i us Juan STONE POINT OF CARE TEST ORDPam SKINNER Final Result * (ABNORMAL) eGFR (08/23/2024 8:04 AM CDT) [facility] eGFR 50(L) >=60 mL/min/1. 73 m2 Comment: Interpretive Data Reference Interval Normal >/= 90 mL/min/1.73m2 Mildly decreased* 60 - 89 mL/min/1.73m2 Mildly to moderately decreased 45 - 59 mL/min/1.73m2 Moderately to severely decreased 30 - 44 mL/min/1.73m2 Severely decreased 15 - 29 mL/min/1.73m2 Kidney Failure < 15 mL/min/1.73m2 *Relative to young adult level Estimated glomerular filtration rate is determined by the 2020 CKD-EPI equation recommended by the National Kidney Foundation (A Unifying Approach to GFR Estimation: Recommendations of the NKF-ASK Task Force on Reassessing the Inclusion of Race in Diagnosing Kidney Disease, JASN 2020). The CKD-EPI equation should not be used for patients with unstable renal function and has not been validated in children and those over 70. Current interpretive data was last reviewed 2021. Blood 08/23/2024 8:04 AM CDT 08/23/2024 10:40 AM CDT us Clark Dunham MD LAB BLOOD ORDERABLES Final Re sult [facility] [place] 1 [facility] Department [place] [address] * (ABNORMAL) eGFR (08/23/2024 8:04 AM CDT) eGFR 51(L) >=60 mL/min/1. 73 m2 Comment: Interpretive Data Reference Interval Normal >/= 90 mL/min/1.73m2 Mildly decreased* 60 - 89 mL/min/1.73m2 Mildly to moderately decreased 45 - 59 mL/min/1.73m2 Moderately to severely decreased 30 - 44 mL/min/1.73m2 Severely decreased 15 - 29 mL/min/1.73m2 Kidney Failure < 15 mL/min/1.73m2 *Relative to young adult level Estimated glomerular filtration rate is determined by the 2020 CKD-EPI equation recommended by the National Kidney Foundation (A Unifying Approach to GFR Estimation: Recommendations of the NKF-ASK Task Force on Reassessing the Inclusion of Race in Diagnosing Kidney Disease, JASN 2020). The CKD-EPI equation should not be used for patients with unstable renal function and has not been validated in children and those over 70. Current interpretive data was last reviewed 2021. Blood 08/23/2024 8:04 AM CDT 08/23/2024 10:40 AM CDT Juan STONE LAB BLOOD ORDERABLES [facility] Result [facility] ([place]) 1 [facility] Department [place] [address] * Differential, auto (08/23/2024 8:04 AM CDT) Neutrophil abs 2.42 1.50 - 6.50 K/cumm Imm gran abs 0.00 0.00 - 0.10 K/cumm [facility] ([place]) Lymphocyte abs 1.01 0.80 - 3.30 K/cumm [facility] ([place]) Monocyte abs 0.30 0.20 - 0.80 K/cumm [facility] ([place]) Eosinophil abs 0.17 0.00 - 0.50 K/cumm [facility] ([place]) Basophil abs 0.02 0.00 - 0.10 K/cumm [facility] ([place]) Neutrophil pct 61.7 % [facility] ([place]) Comment: Interpretive Data Percent cell count reference ranges are not reported, since discordance with absolute values may lead to misinterpretation of CBC data. Current Interpretive Data was last revised on 2017. Imm gran pct 0.0 % [facility] ([place]) Comment: Interpretive Data Percent cell count reference ranges are not reported, since discordance with absolute values may lead to misinterpretation of CBC data. Current Interpretive Data was last revised on 2017. Lymphocyte pct 25.8 % [facility] ([place]) Comment: Interpretive Data Percent cell count reference ranges are not reported, since discordance with absolute values may lead to misinterpretation of CBC data. Current Interpretive Data was last revised on 2017. Monocyte pct 7.7 % [facility] ([place]) Comment: Interpretive Data Percent cell count reference ranges are not reported, since discordance with absolute values may lead to misinterpretation of CBC data. Current Interpretive Data was last revised on 2017. Eosinophil pct 4.3 % [facility] ([place]) Comment: Interpretive Data Percent cell count reference ranges are not reported, since discordance with absolute values may lead to misinterpretation of CBC data. Current Interpretive Data was last revised on 2017. Basophil pct 0.5 % [facility] ([place]) Comment: Interpretive Data Percent cell count reference ranges are not reported, since discordance with absolute values may lead to misinterpretation of CBC data. Current Interpretive Data was last revised on 2017. Blood 08/23/2024 8:04 AM CDT 08/23/2024 10:40 AM CDT us Juan STONE LAB BLOOD ORDERABLES Fi nal Result [facility]PH [facility] ([place]) 1 [facility] Department [place] [address] * Differential, auto (08/23/2024 8:04 AM CDT) Neutrophil abs 2.66 1.50 - 6.50 K/cumm Imm gran abs 0.01 0.00 - 0.10 K/cumm [facility] ([place]) Lymphocyte abs 1.07 0.80 - 3.30 K/cumm [facility] ([place]) Monocyte abs 0.31 0.20 - 0.80 K/cumm [facility] ([place]) Eosinophil abs 0.21 0.00 - 0.50 K/cumm [facility] ([place]) Basophil abs 0.02 0.00 - 0.10 K/cumm [facility] ([place]) Neutrophil pct 62.2 % [facility] ([place]) Comment: Interpretive Data Percent cell count reference ranges are not reported, since discordance with absolute values may lead to misinterpretation of CBC data. Current Interpretive Data was last revised on 2017. Imm gran pct 0.2 % [facility] ([place]) Comment: Interpretive Data Percent cell count reference ranges are not reported, since discordance with absolute values may lead to misinterpretation of CBC data. Current Interpretive Data was last revised on 2017. Lymphocyte pct 25.0 % [facility] ([place]) Comment: Interpretive Data Percent cell count reference ranges are not reported, since discordance with absolute values may lead to misinterpretation of CBC data. Current Interpretive Data was last revised on 2017. Monocyte pct 7.2 % [facility] ([place]) Comment: Interpretive Data Percent cell count reference ranges are not reported, since discordance with absolute values may lead to misinterpretation of CBC data. Current Interpretive Data was last revised on 2017. Eosinophil pct 4.9 % [facility] ([place]) Comment: Interpretive Data Percent cell count reference ranges are not reported, since discordance with absolute values may lead to misinterpretation of CBC data. Current Interpretive Data was last revised on 2017. Basophil pct 0.5 % [facility] ([place]) Comment: Interpretive Data Percent cell count reference ranges are not reported, since discordance with absolute values may lead to misinterpretation of CBC data. Current Interpretive Data was last revised on 2017. Blood 08/23/2024 8:04 AM CDT 08/23/2024 10:40 AM CDT Clark Dunham MD LAB BLOOD ORDERABLES Final Re sult Performing Organization Address [facility]/ZIP Co de Phone Number [facility] ([place]) 1 [facility] [place] [address] * Iron profile w/ IBC (08/23/2024 8:04 AM CDT) Iron 102 50 - 150 mcg/dL TIBC 276 250 - 400 mcg/dL [facility] ([place]) Transferrin saturation 37 20 - 50 % [facility] ([place]) Blood 08/23/2024 8:04 AM CDT 08/23/2024 10:40 AM CDT us Juan STONE LAB BLOOD ORDERABLES Fi nal Result Performing Organization Address [facility] Co de Phone Number [facility] ([place]) 1 [facility] [place] [address] * Iron profile w/ IBC (08/23/2024 8:04 AM CDT) Iron 101 50 - 150 mcg/dL TIBC 282 250 - 400 mcg/dL [facility] ([place]) Transferrin saturation 36 20 - 50 % [facility] ([place]) Blood 08/23/2024 8:04 AM CDT 08/23/2024 10:40 AM CDT us Clark Dunham MD LAB BLOOD ORDERABLES Final Re sult Performing Organization Address [facility]/ZIP Co de Phone Number [facility] ([place]) 1 [facility] [place] [address] * (ABNORMAL) CBC with auto differential (08/23/2024 8:04 AM CDT) WBC 3.92 3.80 - 9.90 K/cumm Hgb 18.5(H) 13.0 - 17.5 g/dL [facility] ([place]) Hct 55.2(H) 38.9 - 50.3 % [facility] ([place]) Plt 67(L) 150 - 400 K/cumm [facility] ([place]) MPV 11.6 9.1 - 12.3 fL [facility] ([place]) RBC 5.70 4.30 - 5.80 M/cumm [facility] ([place]) MCV 96.8(H) 81.3 - 96.4 fL [facility] ([place]) MCH 32.5 27.1 - 33.3 pg [facility] ([place]) MCHC 33.5 32.3 - 35.7 g/dL [facility] ([place]) RDW CV 14.0 11.1 - 14.9 % [facility] ([place]) RDW SD 49.9(H) 35.7 - 48.1 fL [facility] ([place]) NRBC abs 0.00 0.00 - 0.01 K/cumm [facility] ([place]) Blood 08/23/2024 8:04 AM CDT 08/23/2024 10:40 AM CDT us Juan STONE LAB BLOOD ORDERABLES nal Result [facility] ([place]) 1 [facility] Department [place] [address] * (ABNORMAL) CBC with auto differential (08/23/2024 8:04 AM CDT) WBC 4.28 3.80 - 9.90 K/cumm Hgb 16.9 13.0 - 17.5 g/dL [facility] ([place]) Hct 50.8(H) 38.9 - 50.3 % [facility] ([place]) Plt 86(L) 150 - 400 K/cumm [facility] ([place]) MPV 11.5 9.1 - 12.3 fL [facility] ([place]) RBC 5.24 4.30 - 5.80 M/cumm [facility] ([place]) MCV 96.9(H) 81.3 - 96.4 fL [facility] ([place]) MCH 32.3 27.1 - 33.3 pg [facility] ([place]) MCHC 33.3 32.3 - 35.7 g/dL [facility] ([place]) RDW CV 13.9 11.1 - 14.9 % [facility] ([place]) RDW SD 49.6(H) 35.7 - 48.1 fL [facility] ([place]) NRBC abs 0.00 0.00 - 0.01 K/cumm [facility] ([place]) Blood 08/23/2024 8:04 AM CDT 08/23/2024 10:40 AM CDT us Clark Dunham MD LAB BLOOD ORDERABLES Final Re sult [facility] ([place]) 1 [facility] [place] [address] * (ABNORMAL) Albumin Creatinine Ratio, Urine (08/23/2024 8:04 AM CDT) Albumin Ur 68.0 mg/L Comment: Interpretive Data No reference range established. Current interpretive data was last revised 2018. Testing performed by: [facility], [address] [place] [address]., [id number] Creatinine Ur 140.5 mg/dL [facility] ([place]) Comment: Interpretive Data No reference range established. Current interpretive data was last revised 2018. Testing performed by: [facility], [address] [place] [address]., [id number] Albumin Creatinine Ratio, Ur 48(H) 1 - 29 mg/g [facility] ([place]) Comment:Testing performed by : [facility], [address] [place] [address]., [id number] Urine 08/23/2024 8:04 AM CDT 08/23/2024 4:40 PM CDT us Juan STONE LAB URINE ORDERABLES Fi nal Result [facility] ([place]) 1 [facility] [place] [address] * Vitamin D 25 hydroxy (08/23/2024 8:04 AM CDT) [facility] Vitamin D 25-OH 35 30 - 80 ng/mL Blood 08/23/2024 8:04 AM CDT 08/23/2024 10:40 AM CDT Juan STONE LAB BLOOD ORDERABLES Fi nal Result [facility] ([place]) 1 [facility] [place] [address] * (ABNORMAL) PTH (08/23/2024 8:04 AM CDT) [facility] PTH 78(H) 15 - 65 pg/mL Blood 08/23/2024 8:04 AM CDT 08/23/2024 10:40 AM CDT Juan STONE LAB BLOOD ORDERABLES Fi nal Result Performing Organization Address City/[facility]/ZIP Co de Phone Number [facility] ([place]) 1 [facility] [place] [address] * (ABNORMAL) PTH (08/23/2024 8:04 AM CDT) [facility] PTH 76(H) 15 - 65 pg/mL Blood 08/23/2024 8:04 AM CDT 08/23/2024 10:40 AM CDT Clark Dunham MD LAB BLOOD ORDERABLES Final Re sult Performing Organization Address City/[facility]/ZIP Co de Phone Number [facility] ([place]) 1 [facility] [place] [address] * Hemoglobin A1c (08/23/2024 8:04 AM CDT) [facility] Hgb A1C 5.6 4.0 - 5.6 % Estimated Average Glucose 114 mg/dL [facility] ([place]) Comment: The ADA recommends reporting an estimated Average Glucose (eAG) with all Hemoglobin A1c results using the equation derived from a study of 507 normal and diabetic adults. Minority populations were underrepresented and children were not included. (Diabetes Care 31:3652-3806, 2008). The eAG is not equivalent to a fasting glucose. Blood 08/23/2024 8:04 AM CDT 08/23/2024 10:40 AM CDT us Juan STONE LAB BLOOD ORDERABLES nal Result [facility] ([place]) 1 [facility] Department [place] [address] * (ABNORMAL) Renal function panel (08/23/2024 8:04 AM CDT) Sodium 142 135 - 145 mmol/L Potassium, pl 4.7 3.3 - 4.9 mmol/L [facility] ([place]) Chloride 106 97 - 110 mmol/L [facility] ([place]) CO2 24 22 - 32 mmol/L [facility] ([place]) Anion gap 12 2 - 15 mmol/L [facility] ([place]) BUN 21 6 - 25 mg/dL [facility] ([place]) Creatinine 1.40(H) 0.80 - 1.30 mg/dL [facility] ([place]) Glucose 99 70 - 199 mg/dL [facility] ([place]) Comment: Interpretive Data Fasting glucose >/= 126 mg/dl is diagnostic for diabetes. Fasting is defined as no caloric intake for at least 8 hours. Fasting glucose between 100 mg/dl to 125 mg/dl is diagnostic of prediabetes. In a patient with classic symptoms of hyperglycemia or hyperglycemic crisis, a random glucose >/= 200 mg/dl is diagnostic for diabetes. In the absence of unequivocal hyperglycemia, results should be confirmed by repeat testing. The classification and Diagnosis of Diabetes Diabetes Care 202; 46: S19-S40. Current interpretive data was last revised 2022. Calcium 9.3 8.5 - 10.3 mg/dL [facility] ([place]) Phosphorus, pl 3.3 2.3 - 4.5 mg/dL [facility] ([place]) Albumin 4.2 3.5 - 5.0 g/dL [facility] ([place]) Blood 08/23/2024 8:04 AM CDT 08/23/2024 10:40 AM CDT us Clark Dunham MD LAB BLOOD ORDERABLES Final Re sult [facility] ([place]) 1 [facility] Department [place] [address] * Lipid panel (08/23/2024 8:04 AM CDT) Cholesterol 152 30 - 199 mg/dL Comment: Interpretive Data Ages < or = 19 years Acceptable: <170 mg/dL Borderline high: 170-199 mg/dL High: >or= 200 mg/dL Ages > or = 20 years Desirable: <200 mg/dL Borderline high: 200-239 mg/dL High: >or= 240 mg/dL Literature References: 1. Expert Panel on Integrated Guidelines for Cardiovascular Health and Risk Reduction in Children and Adolescents. Pediatrics 2011;128:S213 2. NCEP Expert Panel. Circulation 2004;110:227 Current Interpretive Data was last revised on 2017. Triglycerides 112 <=149 mg/dL [facility] ([place]) Comment: Interpretive Data Ages < or = 9 years Acceptable: <75 mg/dL Borderline high: 75-99 mg/dL High: >or= 100 mg/dL Ages 10 to 20 years Acceptable: <90 mg/dL Borderline high: 90-129 mg/dL High: >or= 130 mg/dL Ages > or = 20 years Desirable: <150 mg/dL Borderline high: 150-199 mg/dL High: 200-499 mg/dL Very high: >or= 499 mg/dL Literature References: 1. Expert Panel on Integrated Guidelines for Cardiovascular Health and Risk Reduction in Children and Adolescents. Pediatrics 2011;128:S213 2. NCEP Expert Panel. Circulation 2004;110:227 Current Interpretive Data was last revised on 2017. HDL 58 >=40 mg/dL [facility] ([place]) Comment: Interpretive Data Ages < or = 19 years Acceptable: >45 mg/dL Borderline low: 40-45 mg/dL Low: <40 mg/dL Ages > or = 20 years Desirable: >or= 60 mg/dL Low: <40 mg/dL Literature References: 1. Expert Panel on Integrated Guidelines for Cardiovascular Health and Risk Reduction in Children and Adolescents. Pediatrics 2011;128:S213 2. NCEP Expert Panel. Circulation 2004;110:227 Current Interpretive Data was last revised on 2017. LDL, calculated 74 <=129 mg/dL [facility] ([place]) Comment: Interpretive Data Ages < or = 19 years Acceptable: <110 mg/dL Borderline high: 110-129 mg/dL High: >or= 130 mg/dL Ages > or = 20 years Optimal: <100 mg/dL Near optimal: 100-129 mg/dL Borderline high: 130-159 mg/dL High: >160 mg/dL Calculated using the Kenton LDL-C estimating equation. This equation was implemented on 2023. Prior to this date LDL-C was estimated using the Friedewald equation. Literature References: 1. Expert Panel on Integrated Guidelines for Cardiovascular Health and Risk Reduction in Children and Adolescents. Pediatrics 2011;128:S213 2. NCEP Expert Panel. Circulation 2004;110:227 3. Kenton Ha et al. YESENIA Cardiol. 2020 September 09;5(5):540-548. doi: 10.1001/jamacardio.2020.0013 Current Interpretive Data was last revised on 2023. Non-HDL Cholesterol 94 mg/dL [facility] ([place]) Comment: Interpretive Data Ages < or = 19 years Acceptable: <120 mg/dL Borderline high: 120-144 mg/dL High: >145 mg/dL Ages > or = 20 years When triglycerides are >200 mg/dL, Non-HDL cholesterol is a secondary target of therapy with treatment goals that are 30 mg/dL greater than the LDL cholesterol target. Literature References: 1. Expert Panel on Integrated Guidelines for Cardiovascular Health and Risk Reduction in Children and Adolescents. Pediatrics 2011;128:S213 2. NCEP Expert Panel. Circulation 2004;110:227 Current Interpretive Data was last revised on 2017. Chol/HDL ratio 3 [facility] ([place]) Blood 08/23/2024 8:04 AM CDT 08/23/2024 10:40 AM CDT Juan STONE LAB BLOOD ORDERABLES nal Result [facility] ([place]) 1 [facility] Department [place] [address] * (ABNORMAL) Comprehensive metabolic panel (08/23/2024 8:04 AM CDT) Sodium 144 135 - 145 mmol/L Potassium, pl 4.7 3.3 - 4.9 mmol/L [facility] ([place]) Chloride 107 97 - 110 mmol/L [facility] ([place]) CO2 24 22 - 32 mmol/L [facility] ([place]) Anion gap 13 2 - 15 mmol/L [facility] ([place]) BUN 21 6 - 25 mg/dL [facility] ([place]) Creatinine 1.39(H) 0.80 - 1.30 mg/dL [facility] ([place]) Glucose 99 70 - 199 mg/dL [facility] ([place]) Comment: Interpretive Data Fasting glucose >/= 126 mg/dl is diagnostic for diabetes. Fasting is defined as no caloric intake for at least 8 hours. Fasting glucose between 100 mg/dl to 125 mg/dl is diagnostic of prediabetes. In a patient with classic symptoms of hyperglycemia or hyperglycemic crisis, a random glucose >/= 200 mg/dl is diagnostic for diabetes. In the absence of unequivocal hyperglycemia, results should be confirmed by repeat testing. The classification and Diagnosis of Diabetes Diabetes Care 2021; 46: S19-S40. Current interpretive data was last revised 2022. Calcium 9.1 8.5 - 10.3 mg/dL [facility] ([place]) Bilirubin, total 0.5 0.1 - 1.2 mg/dL [facility] ([place]) Protein, pl 6.5 6.5 - 8.5 g/dL [facility] ([place]) Albumin 4.1 3.5 - 5.0 g/dL [facility] ([place]) Alk phos 58 40 - 130 Units/L [facility] ([place]) ALT 11 7 - 55 Units/L [facility] ([place]) AST 22 10 - 50 Units/L [facility] ([place]) Blood 08/23/2024 8:04 AM CDT 08/23/2024 10:40 AM CDT us Juan STONE LAB BLOOD ORDERABLES Fi nal Result [facility] ([place]) [address] [place] [address] [place] [address] * TRANSTHORACIC ECHO (TTE) COMPLETE W DOPPLER/CF WO CONTRAST (08/19/2024 12:59 PM CDT) Anatomical Region Laterality Modality Ultrasound 08/19/2024 12:1 6 PM CDT Narrative 08/19/2024 4:14 PM CDT [address] [address] Echocardiogram Report Patient Name: JANE CHERRY : 1940 Study Date: 08/19/2024 12:16:45 PM Gender: M Tech: AA Ref Provider: WOODROW MAYES Height(Cm): BSA: Weight(Kg): Quality: Good Order Provider: WOODROW MAYES PROCEDURES: Echocardiographic Report: Transthoracic echocardiogram with complete 2D, M-Mode, and color Doppler examination. INDICATIONS: tavr and R01.1 Cardiac murmur, unspecified. MEASUREMENTS: 2D/MM Value Range Doppler Value Range EF Teich 2D 28.6 % [ 52.0 - 72.0 ] LISSA Vmax 2.88 cm2 EF Mod BP 53 % [ 52 - 72 ] AV Mean PG 9 mmHg LVIDd 2D 4.61 cm [ 4.20 - 5.80 ] AV Peak Abiodun 2.04 m/s [ 1.00 - 1.70 ] LVIDs 2D 4.00 cm [ 2.50 - 4.00 ] AV VTI 47.96 cm LVPWd 2D 1.61 cm [ 0.60 - 1.00 ] LVOT Diam 2.63 cm IVSd 2D 1.60 cm [ 0.60 - 1.00 ] LVOT Peak Abiodun 1.08 m/s [ 0.70 - 1.10 ] LA Dimension MM 6.39 cm [ 3.00 - 4.00 ] LVOT VTI 26.72 cm AoR Diam MM 3.13 cm [ 3.10 - 3.70 ] MV E Peak Abiodun 1.15 m/s [ 0.60 - 1.30 ] ACS MM 1.81 cm [ 1.50 - 2.60 ] MV A Peak Abiodun 1.08 m/s [ 1.00 - 1.20 ] MV Mean PG 2 mmHg MV PHT 58 msec [ 20 - 100 ] MVA 3.80 MV Decel Time 200 msec [ 104 - 258 ] PV Peak Abiodun 1.11 m/s [ 0.40 - 0.80 ] TR Peak Abiodun 3.26 m/s [ 1.00 - 2.80 ] TR Peak PG 43 mmHg RVSP 48.00 mmHg [ 10.00 - 36.00 ] E` 0.05 m/s E/E` 22.50 [ <= 10.00 ] PA Pressure 5.00 mmHg [ 10.00 - 36.00 ] 2D/MM Value Range Doppler Value Range - FINDINGS: Atrial Septum: Normal atrial septum. Left Ventricle: Normal left ventricular systolic function with no focal wall motion abnormalities. Normal left ventricular size. Mild concentric left ventricular hypertrophy. Ejection fraction is measured at 53 %. Left Atrium: There is mild enlargement of left atrium. Right Ventricle: Normal right ventricular size. Normal right ventricular systolic function. Right Atrium: The right atrium is normal in size. Aortic Valve: Peak velocity AOV of 2.0 m/sec. Peak gradient of 16.0 mmHg. Mean gradient of 7.0 mmHg. Valve area of 2.5 cm2. No aortic regurgitation. Normal appearing aortic valve bioprosthesis. Mitral Valve: Mild mitral annular calcification. Mild mitral valve regurgitation. Pulmonic Valve: Normal structure of the pulmonic valve. Tricuspid Valve: Moderate pulmonary hypertension based on right ventricular systolic pressure. Estimated peak RVSP is 50-55 mmHg. Moderate tricuspid regurgitation. Pericardium: Normal pericardium with no significant pericardial effusion. Aorta: Normal aortic root. Sinus of Valsalva is normal. Aortic arch is normal. Descending aorta is normal. IVC: Normal size and normal respiratory collapse consistent with normal right atrial pressure (<5 mmHg). Pulmonary Artery: Normal pulmonary artery size. CONCLUSIONS: Normal left ventricular systolic function with inferior hypokinesis. Normal left ventricular size. Mild concentric left ventricular hypertrophy. Ejection fraction is measured at 53 %. There is mild enlargement of left atrium. Mild mitral annular calcification. Mild mitral valve regurgitation. Normal appearing aortic valve bioprosthesis ( Resilia 26 mm ).Peak velocity AOV of 2.0 m/sec. Peak gradient of 16.0 mmHg. Mean gradient of 7.0 mmHg. Valve area of 2.5 cm2. No aortic regurgitation. Moderate pulmonary hypertension based on right ventricular systolic pressure. Estimated peak RVSP is 50-55 mmHg. Moderate tricuspid regurgitation. Electronically Signed By: Cezar Guillen MD 08/19/2024 4:13:58 PM CDT Procedure Note Cezar Guillen MD - 08/19/[address] [address] Echocardiogram Report Patient Name: JANE CHERRY : 1940 Study Date: 08/19/2024 12:16:45 PM Gender: M Tech: AA Ref Provider: WOODROW MAYES Height(Cm): BSA: Weight(Kg): Quality: Good Order Provider: WOODROW MAYES PROCEDURES: Echocardiographic Report: Transthoracic echocardiogram with complete 2D, M-Mode, and color Dopplerexamination. INDICATIONS: tavr and R01.1 Cardiac murmur, unspecified. MEASUREMENTS: 2D/MM Value Range Doppler ValueRange EF Teich 2D 28.6 % [ 52.0 - 72.0 ] LISSA Vmax 2.88cm2 EF Mod BP 53 % [ 52 - 72 ] AV Mean PG 9 mmHg LVIDd 2D 4.61 cm [ 4.20 - 5.80 ] AV Peak Abiodun 2.04 m/s[ 1.00 - 1.70 ] LVIDs 2D 4.00 cm [ 2.50 - 4.00 ] AV VTI 47.96cm LVPWd 2D 1.61 cm [ 0.60 - 1.00 ] LVOT Diam 2.63cm IVSd 2D 1.60 cm [ 0.60 - 1.00 ] LVOT Peak Abiodun 1.08 m/s[ 0.70 - 1.10 ] LA Dimension MM 6.39 cm [ 3.00 - 4.00 ] LVOT VTI 26.72cm AoR Diam MM 3.13 cm [ 3.10 - 3.70 ] MV E Peak Abiodun 1.15 m/s[ 0.60 - 1.30 ] ACS MM 1.81 cm [ 1.50 - 2.60 ] MV A Peak Abiodun 1.08 m/s[ 1.00 - 1.20 ] MV Mean PG 2 mmHg MV PHT 58 msec [ 20 - 100 ] MVA 3.80 MV Decel Time 200 msec [ 104 - 258 ] PV Peak Abiodun 1.11 m/s [ 0.40 - 0.80 ] TR Peak Abiodun 3.26 m/s [ 1.00 - 2.80 ] TR Peak PG 43 mmHg RVSP 48.00 mmHg [ 10.00 - 36.00 ] E` 0.05 m/s E/E` 22.50 [ <= 10.00 ] PA Pressure 5.00 mmHg [ 10.00 - 36.00 ] 2D/MM Value Range Doppler ValueRange - FINDINGS: Atrial Septum: Normal atrial septum. Left Ventricle: Normal left ventricular systolic function with no focal wall motionabnormalities. Normal left ventricular size. Mild concentric left ventricular hypertrophy.Ejection fraction is measured at 53 %. Left Atrium: There is mild enlargement of left atrium. Right Ventricle: Normal right ventricular size. Normal right ventricular systolicfunction. Right Atrium: The right atrium is normal in size. Aortic Valve: Peak velocity AOV of 2.0 m/sec. Peak gradient of 16.0 mmHg. Mean gradientof 7.0 mmHg. Valve area of 2.5 cm2. No aortic regurgitation. Normal appearing aorticvalve bioprosthesis. Mitral Valve: Mild mitral annular calcification. Mild mitral valve regurgitation. Pulmonic Valve: Normal structure of the pulmonic valve. Tricuspid Valve: Moderate pulmonary hypertension based on right ventricular systolicpressure. Estimated peak RVSP is 50-55 mmHg. Moderate tricuspid regurgitation. Pericardium: Normal pericardium with no significant pericardial effusion. Aorta: Normal aortic root. Sinus of Valsalva is normal. Aortic arch is normal.Descending aorta is normal. IVC: Normal size and normal respiratory collapse consistent with normal rightatrial pressure (<5 mmHg). Pulmonary Artery: Normal pulmonary artery size. CONCLUSIONS: Normal left ventricular systolic function with inferior hypokinesis.Normal left ventricular size. Mild concentric left ventricular hypertrophy. Ejectionfraction is measured at 53 %. There is mild enlargement of left atrium. Mild mitral annular calcification. Mild mitral valve regurgitation. Normal appearing aortic valve bioprosthesis ( Resilia 26 mm ).Peakvelocity AOV of 2.0 m/sec. Peak gradient of 16.0 mmHg. Mean gradient of 7.0 mmHg. Valve areaof 2.5 cm2. No aortic regurgitation. Moderate pulmonary hypertension based on right ventricular systolicpressure. Estimated peak RVSP is 50-55 mmHg. Moderate tricuspid regurgitation. Electronically Signed By: Cezar Guillen MD 08/19/2024 4:13:58 PM CDT Woodrow Mayes MD CV ECHO PROCEDURES Fin al Result * 48 HR Holter Monitor (08/03/2024 10:52 AM CDT) Anatomical Region Laterality Modality Electrocardiogra phy 08/03/2024 10:5 8 AM CDT Narrative 08/15/2024 4:21 PM CDT [address] [place] [address] HOLTER MONITOR Patient Name: JANE CHERRY W : 1940 Study Date: 2024-08-03 10:58:09 AM Gender: M Tech: Ref Provider: WOODROW MAYES Height(Cm): BSA: Weight(Kg): Order Provider: WOODROW MAYES PROCEDURES: Holter Report: Holter Monitor Report. INDICATIONS: Palpitations R00.2 and R00.2 Palpitations. FINDINGS: Protocol: Recording Duration (Ordered): 48h Number of Diary entries 2024-08-03 10:58:09 Study Quality: Study quality is good. CONCLUSIONS: 1. Predominant rhythm is normal sinus rhythm. 2. Prolonged pauses consistent with significant conduction system disease are present. A period of complete heart block was noted without symptoms. 3. Rare PACs. 4. Rare PVCs. 5. There are events of probable atrial fibrillation noted. No P waves detected. 6. There are no ventricular tachycardia events noted. 7. The patient recorded no symptoms during the study. 8. High Grade conduction system disease is demonstrated. 9. Clinically significant arrhythmias were demonstrated. Electronically Signed By: Vince Mendez MD, [facility] 2024-08-15 4:07:29 PM CDT Procedure Note Vince Mendez MD - 08/15/[address] [address] HOLTER MONITOR Patient Name: JANE CHERRY W : 1940 Study Date: 2024-08-03 10:58:09 AM Gender: M Tech: Ref Provider: WOODROW MAYES Height(Cm): BSA: Weight(Kg): Order Provider: WOODROW MAYES PROCEDURES: Holter Report: Holter Monitor Report. INDICATIONS: Palpitations R00.2 and R00.2 Palpitations. FINDINGS: Protocol: Recording Duration (Ordered): 48h Number of Diary entries 2024-08-03 10:58:09 Study Quality: Study quality is good. CONCLUSIONS: 1. Predominant rhythm is normal sinus rhythm. 2. Prolonged pauses consistent with significant conduction system diseaseare present. A period of complete heart block was noted without symptoms. 3. Rare PACs. 4. Rare PVCs. 5. There are events of probable atrial fibrillation noted. No P wavesdetected. 6. There are no ventricular tachycardia events noted. 7. The patient recorded no symptoms during the study. 8. High Grade conduction system disease is demonstrated. 9. Clinically significant arrhythmias were demonstrated. Electronically Signed By: Vince Mendez MD, [facility] 2024-08-15 4:07:29 PM CDT Woodrow Mayes MD CV CARDIAC SERVICES OR OCEDURES Final Result * POCT INR (07/28/2024 10:33 AM CDT) INR, POC 2.20 2.00 - 3.00 Blood Venous blood specimen / Unknown 07/28/2024 10:33 AM CDT Narrative Resulting Agency Comment Patient is taking 3 mg dailyGoal 2-3Dx: A-fibLab Results Component Value Date INR 2.2 07/28/2024 INR 2.30 3 mg dailyLab Results Component Value Date INR 2.30 07/02/2024 INR 2.60 06/03/2024 3 mg dailyLab Results Component Value Date INR 2.30 07/02/2024 INR 2.60 06/03/2024 IN R 1.50 (A) 05/20/2024 2.5 mg daily Is the patient taking medication correctly? YesIs the patient feeling well? YesIs patient following prescribed diet? YesHas the patient had any recent changes to medications? NoDoes the patient have any bruisi ng or bleeding? NoHas the patient been hospitalized since the last PT/INR? NoIs the patient taking over the counter pain relievers? NoIs the patient taking multivitamins? NoDoes the patient have dental or other surgery scheduled in near future? No us Juan STONE POINT OF CARE TEST MY SKINNER Final Result * (ABNORMAL) eGFR (07/26/2024 12:40 PM CDT) eGFR 53(L) >=60 mL/min/1. 73 m2 Comment: Interpretive Data Reference Interval Normal >/= 90 mL/min/1.73m2 Mildly decreased* 60 - 89 mL/min/1.73m2 Mildly to moderately decreased 45 - 59 mL/min/1.73m2 Moderately to severely decreased 30 - 44 mL/min/1.73m2 Severely decreased 15 - 29 mL/min/1.73m2 Kidney Failure < 15 mL/min/1.73m2 *Relative to young adult level Estimated glomerular filtration rate is determined by the 2020 CKD-EPI equation recommended by the National Kidney Foundation (A Unifying Approach to GFR Estimation: Recommendations of the NKF-ASK Task Force on Reassessing the Inclusion of Race in Diagnosing Kidney Disease, JASN 2020). The CKD-EPI equation should not be used for patients with unstable renal function and has not been validated in children and those over 70. Current interpretive data was last reviewed 2021. Testing performed by: [facility], [facility], [place], [address] Blood 07/26/2024 12:4 0 PM CDT 07/26/2024 1:28 PM CDT us Jersey Sidhu NP LAB BLOOD ORDERABLES F inal Result [facility] ([place]) 1 [facility] Department [place] [address] * Differential, auto (07/26/2024 12:40 PM CDT) Pathologist [facility] Neutrophil abs 5.9 1.5 - 6.5 K/cumm Comment:Testing performed by : [facility] [address], Medical Office [facility] [address], [place] [address] Imm gran abs 0.0 0.0 - 0.1 K/cumm [facility] ([place]) Comment:Testing performed by : [facility] [address], Medical Office [facility] [address], [place] [address] Lymphocyte abs 1.3 0.8 - 3.3 K/cumm [facility] ([place]) Comment:Testing performed by : [facility] [address], Medical Office [facility] [address], [place] [address] Monocyte abs 0.8 0.2 - 0.8 K/cumm [facility] ([place]) Comment:Testing performed by : [facility] [address], Medical Office [facility] [address], [place] [address] Eosinophil abs 0.2 0.0 - 0.5 K/cumm [facility] ([place]) Comment:Testing performed by : [facility] [address], Medical Office [facility] [address], [place] [address] Basophil abs 0.0 0.0 - 0.1 K/cumm [facility] ([place]) Comment:Testing performed by : [facility] [address], Medical Office [facility] [address], [place] [address] Neutrophil pct 71.1 % [facility] ([place]) Comment: Interpretive Data Percent cell count reference ranges are not reported, since discordance with absolute values may lead to misinterpretation of CBC data. Current Interpretive Data was last revised on 2022. Testing performed by: [facility] [address], Medical Office [facility] [address], [place] [address] Imm gran pct 0.1 % [facility] ([place]) Comment: Interpretive Data Percent cell count reference ranges are not reported, since discordance with absolute values may lead to misinterpretation of CBC data. Current Interpretive Data was last revised on 2022. Testing performed by: [facility] [address], Medical Office [facility] [address], [place] [address] Lymphocyte pct 15.6 % [facility] ([place]) Comment: Interpretive Data Percent cell count reference ranges are not reported, since discordance with absolute values may lead to misinterpretation of CBC data. Current Interpretive Data was last revised on 2022. Testing performed by: [facility] [address], Medical Office [facility] [address], [place] [address] Monocyte pct 9.8 % [facility] ([place]) Comment: Interpretive Data Percent cell count reference ranges are not reported, since discordance with absolute values may lead to misinterpretation of CBC data. Current Interpretive Data was last revised on 2022. Testing performed by: [facility] [address], Medical Office [facility] [address], [place] [address] Eosinophil pct 2.9 % [facility] ([place]) Comment: Interpretive Data Percent cell count reference ranges are not reported, since discordance with absolute values may lead to misinterpretation of CBC data. Current Interpretive Data was last revised on 2022. Testing performed by: [facility] [address], Medical Office [facility] [address], [place] [address] Basophil pct 0.5 % [facility] ([place]) Comment: Interpretive Data Percent cell count reference ranges are not reported, since discordance with absolute values may lead to misinterpretation of CBC data. Current Interpretive Data was last revised on 2022. Testing performed by: [facility] [address], Medical Office [facility] [address], [place] [address] Blood 07/26/2024 12:4 0 PM CDT 07/26/2024 12:40 PM CDT us Jersey Sidhu NP LAB BLOOD ORDERABLES F inal Result [facility] ([place]) 1 [facility] Department [place] [address] * Iron profile w/ IBC (07/26/2024 12:40 PM CDT) Iron 96 50 - 150 mcg/dL Comment:Testing performed by : [facility], [facility], [place], [address] TIBC 279 250 - 400 mcg/dL [facility] ([place]) Comment:Testing performed by : [facility], [facility], [place], [address] Transferrin saturation 34 20 - 50 % [facility] ([place]) Comment:Testing performed by : [facility], [facility], [place], [address] Blood 07/26/2024 12:4 0 PM CDT 07/26/2024 1:28 PM CDT us Jersey Sidhu NP LAB BLOOD ORDERABLES F inal Result [facility] ([place]) 1 [facility] Department [place] [address] * (ABNORMAL) CBC with auto differential (07/26/2024 12:40 PM CDT) Pathologist [facility] WBC 8.3 3.8 - 9.9 K/cumm Comment:Testing performed by : [facility] [address], Medical Office [address], [place] [address] Hgb 12.3(L) 13.0 - 17.5 g/dL [facility] ([place]) Comment:Testing performed by : [facility] [address], Medical Office [address]ld[address], [place] [address] Hct 37.2(L) 38.9 - 50.3 % [facility] ([place]) Comment:Testing performed by : [facility] [address], Medical Office [address], [place] [address] Plt 133(L) 150 - 400 K/cumm [facility] ([place]) Comment:Testing performed by : [facility] [address], Medical Office [address]ld[address], [place] [address] MPV 10.9 9.1 - 12.3 fL [facility] ([place]) Comment:Testing performed by : [facility] [address], Medical Office [address], [place] [address] RBC 3.82(L) 4.30 - 5.80 M/cumm [facility] ([place]) Comment:Testing performed by : [facility] [address], Medical Office [facility] [address], [place] [address] MCV 97.4(H) 81.3 - 96.4 fL [facility] ([place]) Comment:Testing performed by : [facility] [address], Medical Office [facility] B [facility] [address], [place] [address] MCH 32.2 27.1 - 33.3 pg [facility] ([place]) Comment:Testing performed by : [facility] [address], Medical Office [facility] B [facility] [address], [place] [address] MCHC 33.1 32.3 - 35.7 g/dL [facility] ([place]) Comment:Testing performed by : [facility] [address], Medical Office [facility] B [facility] [address], [place] [address] RDW CV 14.2 11.1 - 14.9 % [facility] ([place]) Comment:Testing performed by : [facility] [address], Medical Office [facility] B [facility] [address], [place] [address] RDW SD 50.5(H) 35.7 - 48.1 fL [facility] ([place]) Comment:Testing performed by : [facility] [address], Medical Office [facility] B [facility] [address], [place] [address] NRBC abs Not Measured 0.00 - 0.01 K/cumm [facility] ([place]) Comment:Testing performed by : [facility] [address], Medical Office [facility] [address], [place] [address] Blood 07/26/2024 12:4 0 PM CDT 07/26/2024 12:40 PM CDT Jersey Sidhu NP LAB BLOOD ORDERABLES F inal Result [facility] ([place]) 1 [facility] Department [place] [address] * Ferritin (07/26/2024 12:40 PM CDT) [facility] Ferritin 340 30 - 400 ng/mL Comment:Testing performed by : [facility], [place], [address] Blood 07/26/2024 12:4 0 PM CDT 07/26/2024 1:28 PM CDT Jersye Sidhu NP LAB BLOOD ORDERABLES F inal Result [facility] ([place]) 1 [facility] Department [place] [address] * (ABNORMAL) Comprehensive metabolic panel (07/26/2024 12:40 PM CDT) Pathologist [facility] Sodium 139 135 - 145 mmol/L Comment:Testing performed by : [facility], [facility], [place], [address] Potassium, pl 5.4(H) 3.3 - 4.9 mmol/L [facility] ([place]) Comment:Testing performed by : [facility], [place], [address] Chloride 106 97 - 110 mmol/L [facility] ([place]) Comment:Testing performed by : [facility], [place], [address] CO2 24 22 - 32 mmol/L [facility] ([place]) Comment:Testing performed by : [facility], [place], [address] Anion gap 9 2 - 15 mmol/L [facility] Comment:Testing performed by : [facility], [place], [address] BUN 21 6 - 25 mg/dL [facility] ([place]) Comment:Testing performed by : [facility], [place], [address] Creatinine 1.33(H) 0.80 - 1.30 mg/dL [facility] ([place]) Comment:Testing performed by : [facility], [place], [address] Glucose 89 70 - 199 mg/dL [facility] ([place]) Comment: Interpretive Data Fasting glucose >/= 126 mg/dl is diagnostic for diabetes. Fasting is defined as no caloric intake for at least 8 hours. Fasting glucose between 100 mg/dl to 125 mg/dl is diagnostic of prediabetes. In a patient with classic symptoms of hyperglycemia or hyperglycemic crisis, a random glucose >/= 200 mg/dl is diagnostic for diabetes. In the absence of unequivocal hyperglycemia, results should be confirmed by repeat testing. The classification and Diagnosis of Diabetes Diabetes Care 2021; 46: S19-S40. Current interpretive data was last revised 2022. Testing performed by: [facility], [place], [address] Calcium 9.2 8.5 - 10.3 mg/dL [facility] ([place]) Comment:Testing performed by : [facility], [place], [address] Bilirubin, total 0.4 0.1 - 1.2 mg/dL [facility] ([place]) Comment:Testing performed by : [facility], [place], [address] Protein, pl 6.6 6.5 - 8.5 g/dL [facility] ([place]) Comment:Testing performed by : [facility], [place], [address] Albumin 4.1 3.5 - 5.0 g/dL [facility] ([place]) Comment:Testing performed by : [facility], [place], [address] Alk phos 70 40 - 130 Units/L [facility] ([place]) Comment:Testing performed by : [facility], [place], [address] ALT 15 7 - 55 Units/L [facility] ([place]) Comment:Testing performed by : [facility], [place], [address] AST 22 10 - 50 Units/L [facility] ([place]) Comment:Testing performed by : [facility], [place], [address] Blood 07/26/2024 12:4 0 PM CDT 07/26/2024 1:28 PM CDT us Jersey Sidhu NP LAB BLOOD ORDERABLES F inal Result [facility] 1 [facility] Department [place] [address] * ECG 12 lead (07/22/2024 11:13 AM CDT) us Woodrow Mayes MD ECG ORDERABLES Final Result * CTA Abdominal Aorta And Bilateral Iliofemoral Runoff (04/10/2022 2:46 PM STOCK SPECULATOR) Anatomical Region Laterality Modality Body Bilateral Computed Tomogra phy 04/10/2022 11:4 1 PM STOCK SPECULATOR Narrative 04/10/2022 11:57 PM STOCK SPECULATOR EXAM DESCRIPTION: CTA ABDOMINAL AORTA AND BILATERAL ILIOFEMORAL RUNOFF REASON FOR STUDY: Claudication Pre-op for left knee replacement, patient states no current leg complaint, history of graft to right leg, veins removed from left leg for right leg TECHNIQUE: CTA of the abdominal aorta with bilateral lower extremity runoff was performed without and with intravenous contrast using helical scanning technique. Precontrast and arterial images were obtained of the lower extremities. Images reviewed with soft tissue and bone windows. Reconstructed coronal and sagittal MPR images reviewed. All images stored on PACS. 3D MIP images rendered on scanning unit and reviewed at time of interpretation. Automated exposure control was used as a dose optimization technique for this examination. CONTRAST TYPE/DOSE: 125mL of IOVERSOL 350 MG IODINE/ML INTRAVENOUS SYRINGE injected via intravenous COMPARISON: 03/23/2021 FINDINGS: VASCULAR: Descending thoracic aorta unremarkable. Scattered atherosclerotic plaque but no high-grade stenosis in the major visceral arteries. Moderate plaque in the common iliac arteries. 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 Graft is patent, running through the subcutaneous tissues of the anteromedial right thigh. This reconstitutes the anterior tibial artery with some backflow into the posterior tibial and peroneal arteries. No flow is seen into the popliteal artery. Left superficial femoral artery demonstrates numerous areas of at least moderate stenosis suboptimally characterized due to calcific plaque. 1 area of marked narrowing is noted on image 358/937. A 2nd site on image 416/937. Distal to this, numerous stenoses are present which may be severe. No definite flow is seen in the popliteal artery. Calf arteries are reconstituted from collaterals. LOWER CHEST: Lung bases are clear. Heart size normal. No effusion. LIVER/BILIARY: Liver unremarkable. Biliary tree normal in caliber. GALLBLADDER: Normal. SPLEEN: Normal. PANCREAS: Normal. ADRENAL GLANDS: Normal. KIDNEYS/URINARY TRACT: No suspicious lesion, stone, obstruction, or inflammation. Ureters and bladder unremarkable. GI: Moderate hiatal hernia. Stomach and small bowel appear normal. Small noninflamed sigmoid diverticula. Normal appendix. OTHER ABDOMINAL/PELVIS: No enlarged lymph node or free fluid. Seroma adjacent to the right common femoral artery. MSK: Advanced L5-S1 disc disease with grade 1 anterolisthesis and bilateral L5 pars defects. Disc spaces are otherwise well preserved for age. BODY WALL: Unremarkable. IMPRESSION: 1. 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 Precise measurement is difficult due to calcific plaque. Reconstitution of calf arteries from collaterals. 2. Right femoral artery graft patent, feeding the right anterior tibial artery. 3. Chronic findings as above. THIS IS AN ELECTRONICALLY VERIFIED FINAL REPORT 04/10/2022 11:57 PM - Electronically signed by Job Yanes M.D. AR: ANGELO Report ID: [id number] Reading Location: [id number] Procedure Note Job Yanes MD - 04/11/2022 EXAM DESCRIPTION: CTA ABDOMINAL AORTA AND BILATERAL ILIOFEMORAL RUNOFF REASON FOR STUDY: Claudication Pre-op for left knee replacement, patient states no current leg complaint, history of graft to right leg, veins removed from left leg for right leg TECHNIQUE: CTA of the abdominal aorta with bilateral lower extremityrunoff was performed without and with intravenous contrast using helicalscanning technique. Precontrast and arterial images were obtained of the lower extremities. Images reviewed with soft tissue and bone windows. Reconstructed coronal and sagittal MPR images reviewed. All images storedon PACS. 3D MIP images rendered on scanning unit and reviewed at time of interpretation. Automated exposure control was used as a doseoptimization technique for this examination. CONTRAST TYPE/DOSE: 125mL of IOVERSOL 350 MG IODINE/ML INTRAVENOUSSYRINGE injected via intravenous COMPARISON: 03/23/2021 FINDINGS: VASCULAR: Descending thoracic aorta unremarkable. Scatteredatherosclerotic plaque but no high-grade stenosis in the major visceral arteries.Moderate plaque in the common iliac arteries. 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 Graft is patent, running through the subcutaneous tissues of theanteromedial right thigh. This reconstitutes the anterior tibial artery with somebackflow into the posterior tibial and peroneal arteries. No flow is seen into the popliteal artery. Left superficial femoral artery demonstrates numerous areas of at least moderate stenosis suboptimally characterized due to calcific plaque. 1area of marked narrowing is noted on image 358/937. A 2nd site on /937. Distal to this, numerous stenoses are present which may be severe. No definite flow is seen in the popliteal artery. Calf arteries are reconstituted from collaterals. LOWER CHEST: Lung bases are clear. Heart size normal. No effusion. LIVER/BILIARY: Liver unremarkable. Biliary tree normal in caliber. GALLBLADDER: Normal. SPLEEN: Normal. PANCREAS: Normal. ADRENAL GLANDS: Normal. KIDNEYS/URINARY TRACT: No suspicious lesion, stone, obstruction, or inflammation. Ureters and bladder unremarkable. GI: Moderate hiatal hernia. Stomach and small bowel appear normal.Small noninflamed sigmoid diverticula. Normal appendix. OTHER ABDOMINAL/PELVIS: No enlarged lymph node or free fluid. Seroma adjacent to the right common femoral artery. MSK: Advanced L5-S1 disc disease with grade 1 anterolisthesis andbilateral L5 pars defects. Disc spaces are otherwise well preserved for age. BODY WALL: Unremarkable. IMPRESSION: 1. Numerous moderate to high-grade stenoses throughout the leftsuperficial femoral artery with complete occlusion at the distal popliteal artery. Precise measurement is difficult due to calcific plaque. Reconstitutionof calf arteries from collaterals. 2. Right femoral artery graft patent, feeding the right anterior tibial artery. 3. Chronic findings as above. THIS IS AN ELECTRONICALLY VERIFIED FINAL REPORT 04/10/2022 11:57 PM - Electronically signed by Job Yanes M.D. AR: ANGELO Report ID: [id number] Reading Location: [id number] Woodrow Mayes MD IMG CT PROCEDURES Dhara l Result * PSA screen (01/24/2022 10:42 AM CDT) PSA-Total 0.77 <=6.20 ng/mL [facility] ([place]) Comment: Interpretive Data AGE SEX REFERENCE INTERVAL 0 minutes-150 years Female None 0 minutes-49 years Male None 50-59 years Male 0-3.90 60-69 years Male 0-5.40 70-79 years Male 0-6.20 80-150 years Male 0-6.20 The Pallavi PSA Total assay procedure was used. Results from different manufacturers or methods may not be comparable. Serial testing should be performed using the same method. Current interpretive data last revised 21. Testing performed by: [facility], [address] [place] [address]., [id number] Blood 01/24/2022 10:4 2 AM CDT 01/24/2022 3:26 PM CDT Narrative [facility] ([place]) - 01/24/2022 4:01 PM CDT fasting Juan [facility] BLOOD ORDERABLES nal Result [facility] ([place]) 1 [facility] Department [place] [address] * Diabetic Eye Exam (01/01/2022) us Generic External Data Provider HEALTH MAINTENANC E Final Result * COLONOSCOPY (02/23/2021 12:58 PM CDT) Anatomical Region Laterality Modality Other Narrative Procedure Note Petey Adams MD - 02/23/2021 12:[address] [facility] Patient Name: Jane Cherry Procedure Date: 02/23/2021 12:58PM Date of : 1940 Admit Type: Outpatient Age: 81 Gender: Male Attending MD: Petey Adams M.D. Room: [facility] ENDOSCOPY ROOM 2 Note Status: Finalized Patient Profile: Refer to note in patient chart for documentation of history and physical. Procedure: Colonoscopy Indications: Last colonoscopy: December 2013, Iron deficiencyanemia Referring MD: Luis Ellsworth M.D. Providers: Petey Adams M.D. Impression: - Hemorrhoids found on perianal exam. - The entire examined colon is normal. - No specimens collected. Recommendation: - Discharge patient to home. - Resume previous diet. - Continue present medications. - Repeat colonoscopy in 10 years for screening purposes. - Return to primary care physician as previously scheduled. Medicines: Propofol per Anesthesia Complications: No immediate complications. Estimated Blood Loss: Estimated blood loss: none. Procedure: Pre-Anesthesia Assessment: - This assessment was completed [Time ofAssessment] prior to the administration of sedation. - This assessment was completed [Time ofAssessment] prior to the administration of sedation. The benefits, risks and alternatives of theprocedure and sedation were discussed and informed consentwas obtained. All questions were answered. Please referto the signed informed consent document in the medical record. The bowel preparation used was Miralax via single dose instruction. The bowel preparation used was bisacodyl tablets via single dose instruction.The scope was passed under direct vision. TheColonoscope [id number] was introduced through the anus and advanced to the the cecum, identified by appendiceal orifice and ileocecal valve. The colonoscopy was performed without difficulty. The patient tolerated the procedure well. The qualityof the bowel preparation was excellent. Findings: Hemorrhoids were found on perianal exam. The colon (entire examined portion) appeared normal. Multiple small and large-mouthed diverticula were found in thesigmoid colon. Electronically signed by Petey Adams M.D. Petey Adams M.D. 02/23/2021 2:10:09 PM Number of Addenda: 0 Note Initiated On: 02/23/2021 12:58 PM Procedure Code(s): --- Professional --- 98592, Colonoscopy, flexible; diagnostic, including collection of specimen(s) by brushing or washing, when performed (separateprocedure) Diagnosis Code(s): --- Professional --- D50.9, Iron deficiency anemia, unspecified K64.9, Unspecified hemorrhoids CPT copyright 2019 [employer]. All rights reserved. The codes documented in this report are preliminary and upon metal work duct installer reviewmay be revised to meet current compliance requirements. Recognized by the [employer] for promoting quality in endoscopy Petey Adams MD ENDOSCOPY PROCEDURES Final Re sult * DIABETES FOOT EXAM (10/01/2016) Diabetic Foot Exam Unknown Historical Provider HEALTH MAINTENANCE Final Result from Last 3 Months or Most Recently Relevant to Health Maintenance Insurance MEDICARE [facility] MEDICARE SUPPLEMENT MEDICARE [facility] Address: [address] [address] [place] [address] [facility] MEDICARE SUPPLEMENT Advance Directives For more information, please contact: [phone] Documents on File Type Date Recorded Patient Kettle 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 Expl anation ADVANCE DIRECTIVE 12/05/2023 12:11 PM NURY R OF TOOL DESIGNER APPRENTICE-MEDICAL Power of Control Director 11/24/2023 1:35 PM Advance Directives and Living Will 04/17/2021 Power of Control Director 04/17/2021 KAYLAH LangKari Loc CHILDS * Full Code (Latest Code Status on File) Date Activated Date Inactivated Comments 10/02/2023 12:28 PM 10/02/2023 8:38 PM * Full Code Date Activated Date Inactivated Comments 08/18/2023 7:32 AM 08/18/2023 1:15 PM * Full Code Date Activated Date Inactivated Comments 08/18/2023 7:32 AM 08/18/2023 7:32 AM * Full Code Date Activated Date Inactivated Comments 05/16/2022 2:14 PM 05/17/2022 11:12 AM * Full Code Date Activated Date Inactivated Comments 02/22/2022 11:04 AM 02/23/2022 4:18 PM Care Teams Cloth Shearing Supervisor Relationship Specialty Start Date End Date Juan Ching PA [address] [place] [address] PCP - General Internal Medicine 01/10/22 Clark Dunham MD [address] [place] [address] [address] [place] [address] Consulting Physician Nephrology 02/21/22 Ana Paula Schwartz, LEARNING SOLUTIONS SPECIALIST [address] [place] [address] [address] [place] [address] Nurse Practitioner Medical Oncology 02/21/22 Woodrow Mayes MD [address] [place] [address] [address] [place] [address] Consulting Physician Cardiology 02/21/22 Mega Villagomez MD [address] [address] Referring Physician Orthopedic Surgery 02/21/22 Maxwell Acuña MD [address] [place] [address] Medical Oncologist/Hematologis t Hematology and Oncology 05/24/22 [place] [address] [address] Consulting Physician Cardiology 12/09/22 Ashok Walters MD [address] [place] [address], [place] [address] Referring Physician Dermatology 08/04/23 Monica Doan MD [address] [place] [id number] Consulting Physician Sleep Medicine 08/09/24
--- OUTSIDE RECORDS SUMMARY | 2024-10-12 11:24 | XMS_ITS | Clinical Summary ---
Author Organization [facility] Address [address] [place] [address] Phone Care Team Providers Care Installers Mechanical Name Role Phone Luis Ellsworth MD Primary Care Provider Unavai lable Allergies Active Allergy Reactions Criticality Noted Date Comments Unclassified Drug Rash High 01/05/2009 Ioban (contained in drape) Medications rosuvastatin (CRESTOR) 40 mg Oral Tab Take 40 mg by mouth daily at bedtime. Active zolpidem (AMBIEN) 10 mg Oral Tab Take 10 mg by mouth nightly as needed for Insomnia. Active bisoprolol-hydr ochlorothiazide (ZIAC) 5-6.25 mg Oral Tab Take 1 Tab by mouth daily after breakfast. Active quinapril (ACCUPRIL) 40 mg Oral Tab Take 40 mg by mouth daily after breakfast. Active ezetimibe (ZETIA) 10 mg Oral Tab Take 10 mg by mouth daily with supper. Active omeprazole (PRILOSEC) 20 mg Oral CpDR Take 20 mg by mouth 2 times daily. Active multivitamin (DAILY-FRANK) Oral Tab Take 1 Tab by mouth daily. Active warfarin (COUMADIN) 3 mg Oral Tab Take 3 mg by mouth daily. 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 Family History Medical History Relation Name Comments Healthy Father Healthy Mother Relation Name Status Comments Father Mother Social History Tobacco Use Types Packs/Day Years Used Date Smoking Tobacco: Former Cigarettes 0 01/03/1964 - 01/03/1984 Alcohol Use Standard Drinks/Week Comments No 0 (1 standard drink = 0.6 oz pur e alcohol) Sex and Gender Information Value Date Recorded Sex Assigned at Not on file Legal 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 Gender Identity Not on file Sexual Orientation Not on file Last Filed Vital Signs Vital Sign Reading Time Taken Comments Blood Pressure 110/68 11/03/2019 11:16 AM CDT Pulse 70 11/03/2019 11:16 AM CDT Temperature 35.5 C (95.9 F) 08/23/2009 1:00 PM CDT Respiratory Rate 16 08/23/2009 1:00 PM CDT Oxygen Saturation 96% 08/23/2009 1:00 PM CDT Inhaled Oxygen Concentration - - Weight 106.6 kg (235 lb) 11/03/2019 11:16 AM CDT Height 180.3 cm (5' 11) 11/03/2019 11:16 AM CDT Body Mass Index 32.78 11/03/2019 11:16 AM CDT Plan of Treatment Health Maintenance Due Date Last Done Comments DIABETES ANNUAL RETINAL EXAM 01/14/1960 DIABETES MICROALBUMIN ANNUAL SCREEN 01/14/1960 LDL CHOLESTEROL ANNUAL 01/14/1960 DTAP/TDAP/TD VACCINES (1 - Tdap) 1961 ZOSTER VACCINE (1 of 2) 01/14/1992 RSV VACCINE (60+ or ) (1 - 1-dose 75+ series) 2017 DIABETES ANNUAL FOOT EXAM 09/16/2019 09/15/2018 DIABETES HBA1C Q 6 MONTHS 02/20/20212020, 08/30/2019, 09/01/2018 INFLUENZA VACCINE (#1) 2023 9, 02/23/2018, 03/19/2017, Additional history exists PNEUMOCOCCAL VACCINE 50+ YEARS Completed 02/28/2015 , 02/23/2013 Medical Devices Implanted Type Area On Site Property Manager Device Identifier Shelf Expiration Date Model / Serial / Lot Graft Vasc Tony Gold [id number] - [id number] Implanted:Qty : 1 on 01/09/2009 at [facility] Graft Left: Arterial [employer]VENTIONS 01/10/2013 [id number] / [id number] / [id number] Description:left [place] femor al artery bypass Insurance MEDICARE PART A AND B [employer] MEDICARE SUPP AESSI Advance Directives For more information, please contact: [phone] Documents on File Type Date Recorded Patient Butcher Fish Expl anation Advance Directive POA 09/15/2013 12:36 PM Advance Directive Living Will 09/15/2013 12:35 PM Advance Directive Living Will * Full Code (Latest Code Status on File) Date Activated Date Inactivated Comments 08/17/2009 8:33 PM 08/23/2009 8:55 PM * Full Code Date Activated Date Inactivated Comments 02/01/2009 9:14 AM 02/02/2009 12:35 PM * Full Code Date Activated Date Inactivated Comments 01/09/2009 1:59 PM 01/11/2009 12:52 PM * Full Code Date Activated Date Inactivated Comments 01/09/2009 1:32 PM 01/09/2009 1:59 PM Care Teams Installers Mechanical Relationship Specialty Start Date End Date Luis Ellsworth MD PCP - General 04/28/15
--- OUTSIDE RECORDS SUMMARY | 2024-10-12 11:24 | XMS_ITS | Clinical Summary ---
Author Organization [facility] Address [address] [place] [address] Care Team Providers Care Splitter Hand Name Role Phone Juan Ching PA Primary Care Provider Clark Dunham MD Unavailable [phone] Ana Paula Schwartz NP Unavailable [phone] Woodrow Mayes MD Unavailable Mega Villagomez MD Unavailable [phone] Maxwell Acuña MD Unavailable [phone] Cezar Guillen MD Unavailable [phone] Ashok Walters MD Unavailable [phone] Monica Doan MD Unavailable Allergies Active Allergy Reactions Criticality Noted Date [...] renal origin Chronic systolic (congestive) heart failure 05/2023 Platelets decreased 12/11/2023 S/P TAVR (transcatheter aortic valve replacement ) 12/03/2023 Pure hypercholesterolemia 01/29/2023 Paroxysmal A-fib 05/28/2022 Atherosclerosis of fond [place] ar teries of extremities with intermittent claudication, bilateral legs 04/17/2022 Overview (04/17/2022): Added automatically from request for surgery [id number] Primary insomnia 02/21/2022 Gastroesophageal reflux dise ase [...] 01/11 DDD (degenerative disc disease), lumbar 02/02/20 21 retirement current use of anticoagulant Hypertension, essential 12/29/2020 Assessment & Plan (08/30/2024 8:53 AM CDT): Recommend DASH diet, heart healthy lifestyle, exercise. Discussed the risks of hypertension. Assessment & Plan (04/21/2024 8:07 AM MANAGER INVESTMENT BANKING): Recommend DASH diet, heart healthy lifestyle, exercise. [...] Assessment & Plan (02/14/2021 2:09 PM CDT): [facility] fall risk Assessment & Plan (02/10/2020 10:18 [...] kidneys. Assessment & Plan (03/28/2021 3:31 PM MANAGER INVESTMENT BANKING): Given creat ddrift up will check 24 [...] (02/10/2020 10:12 AM CDT): Creat lower and mahoganyeras some better crf check 24 hr urien [...] and above nl so relatively stable to waqasma diana. Reviewed drugs and re affermed that tylenol is very acceptable within a Less then [id number] daily dose and not an isue for [...] artery disease of n ative artery of fond [place] heart with stable angina pectoris 10/21/2014 Overview [...] esophagus Assessment & Plan (03/28/2021 3:26 PM MANAGER INVESTMENT BANKING): errosive esophagitis And egd this yr Assessment [...] recommended. Assessment & Plan (07/17/2023 10:50 AM MANAGER INVESTMENT BANKING): Wt Readings from Last 3 Encounters: 07/17/23 [...] 07/17/2023 Assessment & Plan (07/17/2023 1:56 PM MANAGER INVESTMENT BANKING): -acute, one-month onset, worsening over past 2 weeks -reports congestion, cough, sinus pressure -OTC meds providing minimal relief -denies shortness of breath, ear pain, nausea, vomiting, diarrhea -Augmentin prescribed Impacted cerumen of left ear 07/17/2023 12/11/2023 Assessment & Plan (07/17/2023 1:58 PM MANAGER INVESTMENT BANKING): -recurrent -patient reports decreased hearing from left [...] (02/07/2022): Added automatically from request for surgery [id number] Anemia of unknown etiology 11/20/2021 0 05/28/2022 Iron deficiency anemia secon gilson to blood loss (chronic) 03/13/2021 09/26/2022 Assessment & Plan (08/20/2021 2:11 PM CDT): Iron back to nl but anemia stable and wreferral to renal about crf being cauase of anemia Assessment & Plan (03/28/2021 3:28 PM MANAGER INVESTMENT BANKING): Iron sat up to 18% and hgn [...] stable. Assessment & Plan (03/28/2021 3:29 PM MANAGER INVESTMENT BANKING): Wt Dr loco and stay on Assessment [...] will be controlled. BMI 33.0-33.9,adult 01/30/2017 02/15/20 21 Assessment & Plan (02/10/2020 10:12 AM CDT): [...] check nl and check on return from [place] in springDiabetes management or controll revolves around [...] have Knee replacement with Dr. Villar in [place]. Assessment & Plan (08/20/2021 2:13 PM CDT): [...] bp. Assessment & Plan (03/28/2021 3:29 PM MANAGER INVESTMENT BANKING): The bp good dn stay on meds [...] or inflammation 08/16/2009 02/26/2023 HTN (hypertension) 08/16/2009 Overview (06/10/2022): Added automatically from request for surgery [id number] Encounters Date Type Department Care Team Description 5 9:45 AM CDT Clinical Support [facility] Primary Care at [address] [place] [address] Paroxysmal A-fib (HCC) (Primary Dx); S/P TAVR (transcatheter aortic valve replacement) 5 9:15 AM CDT Clinical Support [facility] Primary Care at [address] [address] Paroxysmal A-fib (HCC) (Primary Dx); S/P TAVR (transcatheter aortic valve replacement) 5 8:30 AM CDT Ancillary Procedure [facility] at [address] [address] Pacemaker reprogramming/check (Primary Dx); Bradycardia; Heart block; Cardiac pacemaker in situ 5 8:30 AM CDT Office Visit [facility] at [address] [place] [address] Vikash Rahman NP Cardiac murmur (Primary Dx); Palpitations; Paroxysmal A-fib (HCC); Bradycardia; Heart block 5 Telephone [facility] Primary Care at [address] [address] Juan Ching PA Medical Records Request 5 10:15 AM CDT Clinical Support [facility] Primary Care at [address] [place] [address] S/P TAVR (transcatheter aortic valve replacement) (Primary Dx); Paroxysmal A-fib (HCC) 5 [facility] Post Discharge Follow up phone call [address] [address] Johnna Amaya 5 Telephone [facility] Gastroenterology at [address] [place] [address] [place] 5 11:42 AM CDT Anesthesia Event [facility] Electrophysiology Lab [address] [place] [address] Janny Mayorga DO Eldin, Ali S., MD 5 10:30 AM CDT - 5 12:[address] [facility] Electrophysiology Lab [address] [place] [address] Woodrow Mayes MD IMPLANT DUAL CHAMBER PPM SYSTEM W/ DUAL ELECTRODES (GEN AND LEADS, NEW OR REPLACE) [id number] 5 8:10 AM CDT - 5 1:59 PM CDT Hospital Encounter [address] [address] Woodrow Mayes MD Bradycardia; Heart block Discharge Disposition: Discharge to home or self care 5 10:45 AM CDT Pre-Admission Testing 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 3 chronic kidney disease, without long-term current use of insulin (HCC); Hypertension, essential; Stage 3a chronic kidney disease (HCC); Pure hypercholesterolemia; Secondary hyperparathyroidism of renal origin; 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; Chronic systolic (congestive) heart failure (HCC); Vitamin D deficiency; Pulmonary hypertension (HCC); Class 1 obesity with body mass index (BMI) of 30.0 to 30.9 in adult, unspecified obesity type, unspecified whether serious comorbidity present; Encounters for administrative purpose; Bradycardia 5 Orders Only [facility] Medical Group Primary Care at [address] [address] Juan Ching PA Stage 3b chronic kidney disease (HCC) (Primary Dx); 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; Pure hypercholesterolemia; Iron deficiency anemia, unspecified iron deficiency anemia type; Vitamin D deficiency 5 Orders Only [facility] [address] [place] [address] [address] [place] [address] Judith Gale MA Bradycardia (Primary Dx); Heart block; Cardiac pacemaker in situ; Pacemaker reprogramming/check 5 Results Follow-Up [facility] [address] [place] [address] [address] [place] [address] Woodrow Mayes MD Transthoracic Echo (TTE) Complete W Doppler/CF 5 8:15 AM CDT Lab [address] Controlled type 2 diabetes mellitus with stage 2 chronic kidney disease, without long-term current use of insulin ([facility]); Secondary hyperparathyroidism of renal origin; Iron deficiency anemia, unspecified iron deficiency anemia type; Vitamin D deficiency; Hypertension, essential 5 8:00 AM CDT Lab [address] 5 12:03 PM CDT - 5 11:59 PM CDT Hospital [facility] Cardiology [address] [place] [address] Cardiac murmur Discharge Disposition: Discharge to home or self care 5 Orders Only [facility] at [address] [place] [address] Woodrow Mayes MD Cardiac murmur (Primary Dx) 5 Results Follow-Up [facility] [address] [place] [address] [address] [place] [address] Woodrow Mayes MD 48 HR Holter Monitor 5 Telephone [facility] Medical Group Primary Care at [address] [place] [address] Juan Ching PA Medical Question/Miscellaneous 5 Telephone [facility] Medical Group Gastroenterology at [address] [place] [address] NevilleEverKatia 5 10:50 AM CDT - 5 11:59 PM CDT Hospital Encounter [facility] Cardiology [address] [place] [address] Palpitations Discharge Disposition: Discharge to home or self care 5 10:15 AM CDT Clinical Support [facility] Medical Group Primary Care at [address] [place] [address] Paroxysmal A-fib (HCC) (Primary Dx) 5 Telephone [facility] Primary Care at [address] [place] [address] Juan Chnig PA 5 1:45 PM CDT Office Visit [facility] Oncology [address] [place] [address] Medical Office [address] [place] [address] Ana Paula Schwartz NP Iron deficiency anemia due to chronic blood loss (Primary Dx) 5 1:15 PM CDT Lab [facility] [address] [facility] [address] [place] [address] Iron deficiency anemia due to chronic blood loss 5 10:45 AM CDT Office Visit [facility] at [address] [place] [address] Woodrow Mayes MD Paroxysmal A-fib (HCC) (Primary Dx); Palpitations 5 Telephone [facility] Medical [facility] Primary Care at [address] [place] [address] Juan Ching PA from Last 3 Months Immunizations Immunization Administration Dates Next Due Influenza, Quadrivalent, Hig h Dose, Preservative Free, Intrr 02/26/2023,02/21/2022,02/14/2021,02/09 Influenza, Trivalent, High D ose, Split, Preservative Free, Intramuscular 03/04/2024,02/18/2019,02/23/2018,03/19,03/06/2016,02/28/2015,02/14/2014 ,02/15/2013 Influenza, Trivalent, IM (MDV) 02/19/2013 Influenza, Unspecified 02/26/2023(Deferr ed: Patient Refused),02/18/2023,12/18/2020(Deferre d: Patient Refused) Moderna SARS-CoV-2 Monovalen t Vaccination (12+ YRS) 03/27/2021,03/27/2021,03/27/2021,06/21,05/23/2020 Pneumococcal Conjugate PCV 13 02/28/2015 Pneumococcal Polysaccharide PPV23 02/23/2013 Td, adsorbed 02/10/2020,02/06/2011 ZOSTER Recombinant 03/02/2024,01/01/2024 Surgical History Surgery Date Site/Laterality Comments KNEE ARTHROSCOPY 05/12/1999 - 05/11/2000 Right Arthroscopy knee OTHER SURGICAL HISTORY 05/12/2006 - 05/11/2007 Peripheral vascular disease: R leg Balloon PCI OTHER SURGICAL HISTORY 05/12/2005 - 05/11/2006 Peripheral vascular disease: L leg balloon PCI OTHER SURGICAL HISTORY 05/12/2005 - 05/11/2006 Peripheral vascular disease: R leg PCI OTHER SURGICAL HISTORY 05/12/2005 - 05/11/2006 Peripheral vascular disease: R leg bypass OTHER SURGICAL HISTORY Carotid Artery Disease, CVA: carotid artery surgery COLONOSCOPY 12/10/2013 - 01/09/2014 CORONARY ARTERY BYPASS GRAFT 05/12/1993 - 05/11/1994 4V CARDIAC CATHETERIZATION x2 SKIN CANCER EXCISION 05/12/2012 - 05/11/2013 left arm TONSILLECTOMY COLONOSCOPY ANOMALOUS PULMONARY VENOUS RETURN REPAIR, TOTAL CARDIAC ELECTROPHYSIOLOGY PROCEDURE 09/07/2024 N/A Procedure: IMPLANT DUAL CHAMBER PPM SYSTEM W/ DUAL ELECTRODES (GEN AND LEADS, NEW OR REPLACE) [id number]; Surgeon: Woodrow Mayes MD; Location: [facility] LAB; Service: Cardiovascular; Laterality: N/A; Medical devices from this surgery are in the Medical Devices section. Medical History Medical History Date Comments Peripheral vascular disease [place] [facility] vascular disease Hx Other Medical [address] [facility] Anemia Stroke (HCC) 25 yrs ago; stut tering and increasingly poor hand writing Diabetes mellitus (HCC) Cataract Iron deficiency anemia rec'd iro n transfusion about a year ago Syncope upon rising in t he morning. Coronary artery disease Hypertension Atrial fibrillation (HCC) Nonrheumatic aortic valve stenosis Arthritis GERD (gastroesophageal reflux disease) Chronic low back pain ABDULKADIR (obstructive sleep apnea) 06/11/2024 Heart murmur Hyperlipidemia S/P TAVR (transcatheter aort ic valve replacement) CHF (congestive heart failure) (HCC) Pulmonary hypertension (HCC) Wears dentures Wears glasses [place] (hard of hearing) Bradycardia Heart block Type 2 diabetes mellitus (HCC) Borderline diabetes Secondary hyperparathyroidis m of renal origin Bartholomew's esophagus Hiatal hernia Duodenal erosion Chronic kidney disease stage 3 Nocturia Iron deficiency anemia due t o chronic blood loss History of transfusion DDD (degenerative disc disease), lumbar Insomnia Family History Medical History Relation Name Comments Heart disease Brother 1 Heart disease; Hypertension Brother 2 Hypertension; Heart disease Father Heart disease; Alzheimer's disease Mother Alzheime r's Disease; Hypertension Mother Hypertension; Stroke Mother Stroke; Relation Name Status Comments Brother 1 Brother 2 Father Mother Social History Tobacco Use Types Packs/Day Years Used Date Smoking Tobacco: Former Cigarettes 1 14 1 0 - 1973 Smokeless Tobacco: Never Tobacco Cessation:Counseling [...] often do you attend chur ch or yazdanism services? More than 4 times per year 12/21/2020 Do you belong to any clubs o r organizations such as mu-ism groups, unions, fraternal or athletic groups, or [...] place to sleep or slept in a prison (including now)? No 12/21/2020 Personal Safety Answer Date Recorded Have you ever been in or are you currently in a harmful physical or emotional relationship or is someone making you feel afraid or unsafe? Denies 09/07/2024 Sex and Gender Information Value Date Recorded Sex Assigned at Not on file Legal Sex Male 7:14 PM MANAGER INVESTMENT BANKING Gender Identity Not on file Sexual Orientation Not on file Obstetrics History Last Filed Vital Signs Vital Sign Reading [...] 09/23/2024 8:22 AM CDT Plan of Treatment Health Maintenance Due Date Last Done Comments DTaP/Tdap/Td Vaccine (1 - Tdap) 02/11/2020 , 02/06/2011 Prostate Cancer Screening-PSA 01/24/2023, 08/06/2021, 01/29/2021, Additional history exists Dilated Eye Exam 01/02/2024 01/01/2022, 04/2021, 02/23/2019, Additional history exists Covid-19 Vaccine (2023-2 5 season) 2024 10/16/2021, 03/27/2021, 03/27/2021, Additional history exists Foot Exam 12/10/2024 12/11/2023, 050 11/2018, 11/10/2017, Additional history exists Hemoglobin A1C 02/22/2025 08/23/2024, 11/09, 07/28/2023, Additional history exists Albumin Creatinine Ratio, Urine 08/23/2025 08/23/2024, 04/14/2024, 01/24/2022, Additional history exists Lipid Panel 08/23/2025 08/23/2024, 1208/2023, 11/28/2023, Additional history exists Depression Screening 08/30/2025 08/30/2024, 04/21/2024, 12/11/2023, Additional history exists Well Visit 65+ 08/30/2025 08/30/2024, 07/11, 02/21/2022, Additional history exists eGFR 09/07/2025 09/07/2024, 08/10, 08/23/2024, Additional history exists Fall Risk Assessment 09/08/2025 09/08/2024, 08/30/2024, 04/21/2024, Additional history exists Colon Cancer Screening-Colonoscopy 02/23/2031 02/23/2021, 12/28/2013, 12/28/2013, Additional history exists Pneumococcal vaccine 65+ Completed 02/28/2015, 02/09 Colon Cancer Screening-CT Colonography Discontinued 02/23/2021, 12/28/2013, 12/28/2013, Additional history exists Colon Cancer Screening-DNA Stool Discontinued 02/23/2021, 12/28/2013, 12/28/2013, Additional history exists Colon Cancer Screening-FIT Discontinued 02/23, 12/28/2013, 12/28/2013, Additional history exists Colon Cancer Screening-Sigmoidoscopy Discontinued 02/23/2021, 12/28/2013, 12/28/2013, Additional history exists Abdominal Aortic Aneurysm (A AA) Screen Completed 04/10/2022, 03/23/2021 Zoster Vaccine Completed 03/02/2024, 01/01/2024 Influenza Vaccine Completed 03/04/2024, , 02/18/2023, Additional history exists Hepatitis B Screening Completed 04/14/2024 Goals Goal Patient Goal Type Associated Problems Recent Progress Patient-Stated? Author ACO SW Goal - Patient will be able to safely move about their home ACO Care Management On track(2020 9:44 AM CDT) Ratna Velázquez, NUCLEAR CRITICALITY SAFETY ENGINEER Note: Problem: Barriers to Home Accessibility Interventions: - Assess home accessibility barriers. - Identify equipment or modifications needed to address barrier(s). - Research available resources to improve home accessibility. - Refer to appropriate resources or alternate housing options. Medical Devices Implanted Type Area Cork Pressing Machine Operator Device Identifier Shelf Expiration Date Model / Serial / Lot Powell V[employer] Perclose 6fr Vascular Closure 68078-59 - [id number] Implanted:Qty: 1 on 05/16/2022 by Cezar Guillen MD at [facility] Other - see comments [employer] 09/09/2023 [id number] / / [id number] Ter[employer] Dania Angio-Seal Vip 6fr Closere Device [id number] - [id number] Implanted:Qty: 1 on 10/02/2023 by Cezar Guillen MD at [facility] Other - see comments [employer] 05/19/2024 [id number] / / [id number] [employer] Inc Zilver Ptx 6mm 60mm 125cm Drug Elute Otw Delivery System [id number] - [id number] Implanted:Qty: 1 on 05/16/2022 by Cezar Guillen MD at [facility] Stent [employer] Inc 12/19/2023 [id number] / / [id number] Powell [employer] System Closure Repair Femoral Artery Suture Mediated Perclose Prostyle 40156-19 - [id number] Implanted:Qty: 1 on 12/03/2023 by Cezar Guillen MD at [facility] [employer] 09/08/2025 [id number] / / [id number] Powell [employer] System Closure Repair Femoral Artery Suture Mediated Perclose Prostyle 27254-20 - [id number] Implanted:Qty: 1 on 12/03/2023 by Cezar Guillen MD at [facility] Vascular 09/08/2025 [id number] / / [id number] Najera Lif[employer]iences Valve Aortic Trnscath Philip 3 Ultra Resilia 26mm [id number] - [id number] - [id number] Implanted:Qty: 1 on 12/03/2023 by Cezar Guillen MD at [facility] [employer] 10/04/2025 [id number] / [id number] / Medtronic Inc Everflex Entrust 7mm 20mm 150cm Self Expand Triaxial Low Profile - [id number] Implanted:Qty: 1 on 12/03/2023 by Cezar Guillen MD at [facility] Med[employer]onic Inc 08/26/2025 [id number] / / [id number] Terumo Medical Dania Angio-Seal Vip 6fr Closere Device [id number] - [id number] Implanted:Qty: 1 on 12/03/20[id number] / / TerAthenix Medical Dania Angio-Seal Vip 6fr Closere Device [id number] - [id number] Implanted:Qty: 1 on 12/03/2023 by Cezar Guillen MD at [facility] [id number] / / Biotronik Inc Active Fixation Steroid Eluting Is 1 Connector Latex Free Sterile Atrial Ventricular Atrial Ventricular Solia 60cm [id number] - [id number] - [id number] Implanted:Qty: 1 on 09/07/20[facility] [id number] 07/09/2026 [id number] / [id number] / Biotronik Inc Active Fixation Steroid Eluting Is 1 Connector Latex Free Sterile Atrial Ventricular Atrial Ventricular Solia 53cm [id number] - [id number] - [id number] Implanted:Qty: 1 on 09/07/2024 [facility] [id number] 08/09/2026 [id number] / [id number] / Biotronik Inc Pacemaker Implantable Amvia Edge Dual Chamb Rate-Responsive [id number] - [id number] - [id number] Implanted:Qty: 1 on 09/07/2024 [facility] [id number] 02/08/2026 [id number] / [id number] / Medtronic Inc Tyrx Absorbable Antibacterial Envelope Med 2.7x2.5in [id number] - [id number] Implanted:Qty: 1 on 09/07/2024 by Woodrow Mayes MD at 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 09/23/2024 [employer] in-office device check The complete report is attached to this Result Text in Enrichment Teacher Woodrow Mayes MD CV CARDIAC SERVICES [place] OCEDURES Final Result * (ABNORMAL) POCT INR [...] CDT) 09/08/2024 10:5 5 AM CDT Narrative [facility] - 09/08/2024 12:44 PM CDT Vent Rate: 65 bpm RR Interval: 915 msec KS Interval: 200 msec QRS Duration: 172 msec QT Interval: 472 msec QTC Interval: 484 msec P-R-T Ewen: 47 - 13 - 178 degrees IMPRESSION: ELECTRONIC VENTRICULAR PACEMAKER ABNORMAL RHYTHM ECG Electronically Signed By: Dr. Chasity Naik [facility] Woodrow Mayes MD ECG ORDERABLES Final Result [facility] * POCT glucose (09/07/2024 5:03 PM CDT) [facility] Signature Glucose, POC 148 70 - 199 mg/dL POC Performer [id number] [facility] Blood 09/07/2024 5:03 PM CDT 09/07/2024 5:03 PM CDT Woodrow Mayes MD LAB POCT ORDERABLES - DEVICE Final Result [facility]SE[facility] HERNANDEZ [id number] [facility] Department [place] [address] * XR Chest 1 Vw Portable (09/07/2024 [...] 134 70 - 199 mg/dL POC Performer [id number] [facility] Blood 09/07/2024 1:24 PM CDT 09/07/2024 1:24 PM CDT Woodrow Mayse MD LAB POCT ORDERABLES - DEVICE Final Result JOSEPH HERNANDEZ [address] [address] Department [place] [address] * IMPLANT DUAL CHAMBER PPM SYSTEM W/ DUAL ELECTRODES (GEN AND LEADS, NEW OR REPLACE) (09/07/2024 1:09PM CDT) Anatomical Region Laterality Modality X-Ray Angiograph y 09/07/2024 Narrative 09/08/2024 10:54 AM CDT [employer] Job ID: [id number] [employer] Document ID: [id number] Dictated date/time: [id number] PACEMAKER IMPLANTATION An 84-year-old patient who underwent a TAVR several months ago. 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 A pacemaker was planned. PROCEDURES 1. Implantation of a dual-chamber pacemaker system, Biotronik. 2. Insertion of a Tyrx pouch. 3. Venogram. He was brought to the union laborer. Left neck subclavicular is prepped in the usual sterile fashion. 1% lidocaine with epi was used. Venogram obtained. Pacemaker pocket was created. Access obtained axillary subclavian vein and 2 J-wires were advanced. Over the first J-wire, a 6 SafeSheath was advanced through which a Biotronik pacing lead [id number] was placed in the RV apex and screwed in place. This was a backup lead while we placed the RV pacing lead in the left bundle branch area. Through the second wire, a 9 SafeSheath was placed through which a 9-Bolivian Selectra guiding catheter from [employer] was positioned in the left bundle branch block, septal area and monitoring the current of injury and impedance. The lead [id number] was advanced inside the septum. After adequate thresholds were confirmed, the Selectra sheath was slit and both the leads were secured to subcutaneous tissues using 0 Ethibond connected to a [employer] generator [id number], noted to be pacing and sensing appropriately. [...] insertion. 3. Venogram. Job ID/Internal Job ID: [id number] Woodrow Mayes MD CV ELECTROPHYSIOLOGY P ROCS Final Result * Peripheral IV Catheter (09/07/2024 1:03 PM CDT) Narrative Anthony Sim CRNA - 09/07/2024 1:03 PM CDT Anthony Sim CRNA 09/07/2024 1:04 PM Peripheral IV Catheter Patient location: OR Staff: Placed by: MG: Anthony Sim CRNA Preprocedure prep: Prep solution: chlorhexadine PPE: gloves and provider hat/mask PIV line: Laterality: right Site: forearm Catheter size: 20 g Technique: anatomical landmarks Procedure details: good blood return Number of attempts: 2 Assessment: Events: patient tolerated procedure well with no complications Janny [facility] DO ANESTHESIA ORDERABLES Final Result * POCT glucose (09/07/2024 8:58 AM CDT) [facility] Signature Glucose, POC 78 70 - 199 mg/dL POC Performer [phone] JOSEPH Blood 09/07/2024 8:58 AM CDT 09/07/2024 8:58 AM CDT Woodrow Mayes MD LAB POCT ORDERABLES - DEVICE Final Result Performing Organization Address [facility] de Phone Number JOSEPH HERNANDEZ [address] Department [place] [address] * (ABNORMAL) eGFR (09/07/2024 8:56 AM CDT) Pathologist [facility] [place] eGFR 52(L) >=60 mL/min/1. 73 m2 Comment: [...] ORDERABLES F inal Result Performing Organization Address [facility] Co de Phone Number JOSEPH HERNANDEZ [id number] Department [place] [address] * (ABNORMAL) Differential, auto (09/07/2024 8:56 AM CDT) Neutrophil abs 3.95 1.50 - 6.50 K/cumm Imm gran abs 0.02 0.00 - 0.10 K/cumm [facility] Lymphocyte abs 1.28 0.80 - 3.30 K/cumm [facility] Monocyte abs 0.84(H) 0.20 - 0.80 K/cumm [facility] Eosinophil abs 0.22 0.00 - 0.50 K/cumm [facility] Basophil abs 0.04 0.00 - 0.10 K/cumm [facility] Neutrophil pct 62.2 % [facility] Comment: Interpretive Data Percent cell count reference ranges are not reported, since discordance with absolute values may lead to misinterpretation of CBC data. Current Interpretive Data was last revised on 2017. Imm gran pct 0.3 % [facility] Comment: Interpretive Data Percent cell count reference ranges are not reported, since discordance with absolute values may lead to misinterpretation of CBC data. Current Interpretive Data was last revised on 2017. Lymphocyte pct 20.2 % [facility] Comment: Interpretive Data Percent cell count reference ranges are not reported, since discordance with absolute values may lead to misinterpretation of CBC data. Current Interpretive Data was last revised on 2017. Monocyte pct 13.2 % [facility] Comment: Interpretive Data Percent cell count reference ranges are not reported, since discordance with absolute values may lead to misinterpretation of CBC data. Current Interpretive Data was last revised on 2017. Eosinophil pct 3.5 % [facility] Comment: Interpretive Data Percent cell count reference ranges are not reported, since discordance with absolute values may lead to misinterpretation of CBC data. Current Interpretive Data was last revised on 2017. Basophil pct 0.6 % [facility] Comment: Interpretive Data Percent cell count reference ranges are not reported, since discordance with absolute values may lead to misinterpretation of CBC data. Current Interpretive Data was last revised on 2017. Blood 09/07/2024 8:56 AM CDT 09/07/2024 9:04 AM CDT us Woodrow Mayes MD LAB BLOOD ORDERABLES F inal Result JOSEPH HERNANDEZ [id number] Department [place] [address] * (ABNORMAL) CBC with auto differential (09/07/2024 8:56 AM CDT) WBC 6.35 3.80 - 9.90 K/cumm Hgb 11.6(L) 13.0 - 17.5 g/dL [facility] Hct 36.3(L) 38.9 - 50.3 % [facility] Plt 144(L) 150 - 400 K/cumm [facility] MPV 11.0 9.1 - 12.3 fL [facility] RBC 3.64(L) 4.30 - 5.80 M/cumm [facility] MCV 99.7(H) 81.3 - 96.4 fL [facility] MCH 31.9 27.1 - 33.3 pg [facility] MCHC 32.0(L) 32.3 - 35.7 g/dL [facility] RDW CV 13.5 11.1 - 14.9 % [facility] RDW SD 49.3(H) 35.7 - 48.1 fL [facility] NRBC abs 0.00 0.00 - 0.01 K/cumm [facility] Blood 09/07/2024 8:56 AM CDT 09/07/2024 9:04 AM CDT Narrative [facility] - 09/07/2024 9:27 AM CDT If most recent labs were drawn prior to 4 AM, draw only prior to initiating procedure. Woodrow Mayes MD LAB BLOOD ORDERABLES F inal Result [facility] [address] Department [place] [address] * (ABNORMAL) Protime-INR (09/07/2024 8:56 AM CDT) PT 14.8(H) 9.7 - 13.0 sec INR 1.36(H) 0.90 - 1.20 [facility] Comment: Interpretive data Oral anticoagulant therapeutic ranges: Venous thromboembolism prophylaxis or treatment: 2.0-3.0 CARDIOLOGY Standard range: 2.0-3.0 High-intensity range: 2.5-3.5 Refer to indication-specific guidelines for appropriate target ranges for prosthetic heart valve replacement. Current interpretive data was last revised on 2019. Blood 09/07/2024 8:56 AM CDT 09/07/2024 9:04 AM CDT Woodrow Mayes MD LAB BLOOD ORDERABLES F inal Result JOSEPH HERNANDEZ [address] Department [place] [address] * (ABNORMAL) Basic metabolic panel (09/07/2024 8:56 AM CDT) Sodium 141 135 - 145 mmol/L Potassium, pl 4.3 3.3 - 4.9 mmol/L [facility] Chloride 105 97 - 110 mmol/L [facility] CH CO2 24 22 - 32 mmol/L [facility] Anion gap 12 2 - 15 mmol/L [facility] BUN 20 6 - 25 mg/dL [facility] Creatinine 1.35(H) 0.80 - 1.30 mg/dL [facility] Glucose 93 70 - 199 mg/dL [facility] Comment: Interpretive Data Fasting glucose >/= 126 [...] 2022. Calcium 9.1 8.5 - 10.3 mg/dL [facility] Blood 09/07/2024 8:56 AM CDT 09/07/2024 9:04 AM CDT Woodrow Mayes MD LAB BLOOD ORDERABLES F inal Result JOSEPH HERNANDEZ [address] Department [place] [address] * ECG 12 lead (09/01/2024 11:55 AM CDT) 09/01/2024 11:5 5 AM CDT Narrative [facility] - 09/01/2024 7:42 PM CDT Vent Rate: 62 bpm RR Interval: 966 msec KS Interval: 229 msec QRS Duration: 165 msec QT Interval: 450 msec QTC Interval: 454 msec P-R-T Ewen: 57 - -47 - 118 degrees IMPRESSION: SINUS RHYTHM WITH FIRST DEGREE AV BLOCK MARKED LEFT AXIS DEVIATION LEFT BUNDLE BRANCH BLOCK ABNORMAL ECG Electronically Signed By: Dr. Chasity Naik [facility] Karen Knight [employer] ECG ORDERABLES Final Result Performing Organization Address City/[facility]/ZIP Co de Phone Number [facility] * Urinalysis reflex to microscopic and culture [...] tendency for uric acid stone formation. Source: [facility] Com[facility]ence Current Interpretive Data was last revised on [...] 1 AM CDT 09/01/2024 1:36 PM CDT Karen Knight NP LAB MICROBIOLOGY - GENERAL ORD ERABLES Final Result [facility] [address] Department [place] [address] * POCT INR (08/30/2024 1:30 PM CDT) Pathologist [facility] [place] INR, POC 2.90 2.00 - 3.00 Blood [...] MY SKINNER Final Result * (ABNORMAL) eGFR (08/23/2024 8:04 AM CDT) Pathologist [facility] [place] eGFR 50(L) >=60 mL/min/1. 73 m2 Comment: [...] of Race in Diagnosing Kidney Disease, JASN 2021). The CKD-EPI equation should not be used for patients with unstable renal function and has not been validated in children and those over 70. Current interpretive data was last reviewed 2021. Blood 08/23/2024 8:04 AM CDT 08/23/2024 10:40 AM CDT us Clark Dunham MD LAB BLOOD ORDERABLES Final Re sult Performing Organization Address City/[facility] Co de Phone Number JOSEPH HARE [place]) 1 [facility] Department of Compositence [place], [place] [id number] * (ABNORMAL) eGFR (08/23/2024 8:04 AM CDT) [...] of Race in Diagnosing Kidney Disease, JASN 2021). The CKD-EPI equation should not be used for patients with unstable renal function and has not been validated in children and those over 70. Current interpretive data was last reviewed 2021. Blood 08/23/2024 8:04 AM CDT 08/23/2024 10:40 AM CDT us Juan STONE LAB BLOOD ORDERABLES Fi nal Result Performing Organization Address City/State/[facility] Co de Phone Number JOSEPH HARE ([place]) 1 [facility] Department [place] [address] * Differential, auto (08/23/2024 8:04 AM CDT) Neutrophil abs 2.42 1.50 - 6.50 K/cumm Imm gran abs 0.00 0.00 - 0.10 K/cumm [facility] ([place]) Lymphocyte abs 1.01 0.80 - 3.30 K/cumm [facility] ([place]) Monocyte abs 0.30 0.20 - 0.80 K/cumm [facility] ([place]) Eosinophil abs 0.17 0.00 - 0.50 K/cumm [facility] ([place]) Basophil abs 0.02 0.00 - 0.10 K/cumm [facility] ([place]) Neutrophil pct 61.7 % [facility] ([place]) Comment: Interpretive Data Percent cell count reference ranges are not reported, since discordance with absolute values may lead to misinterpretation of CBC data. Current Interpretive Data was last revised on 2017. Imm gran pct 0.0 % [facility] ([place]) Comment: Interpretive Data Percent cell count reference [...] revised on 2017. Monocyte pct 7.7 % [facility] ([place]) Comment: Interpretive Data Percent cell count reference ranges are not reported, since discordance with absolute values may lead to misinterpretation of CBC data. Current Interpretive Data was last revised on 2017. Eosinophil pct 4.3 % [facility] ([place]) Comment: Interpretive Data Percent cell count reference ranges are not reported, since discordance with absolute values may lead to misinterpretation of CBC data. Current Interpretive Data was last revised on 2017. Basophil pct 0.5 % [facility] ([place]) Comment: Interpretive Data Percent cell count reference ranges are not reported, since discordance with absolute values may lead to misinterpretation of CBC data. Current Interpretive Data was last revised on 2017. Blood 08/23/2024 8:04 AM CDT 08/23/2024 10:40 AM CDT us Juan STONE LAB BLOOD ORDERABLES Fi nal Result [facility] ([place]) 1 [facility] Department [place] [address] * Differential, auto (08/23/2024 8:04 AM CDT) [...] MD LAB BLOOD ORDERABLES Final Re sult [facility] ([place]) 1 [facility] [employer] [place] [place] [address] * Iron profile w/ IBC (08/23/2024 8:04 AM CDT) Iron 102 50 - 150 mcg/dL TIBC 276 250 - 400 mcg/dL [facility] ([place]) Transferrin saturation 37 20 - 50 % [facility] ([place]) Blood 08/23/2024 8:04 AM CDT 08/23/2024 10:40 AM CDT us Juan STONE LAB BLOOD ORDERABLES Fi nal Result [facility]PH [facility] ([place]) 1 [facility] [place] [address] * Iron profile w/ IBC (08/23/2024 8:04 AM CDT) Iron 101 50 - 150 mcg/dL TIBC 282 250 - 400 mcg/dL [facility] ([place]) Transferrin saturation 36 20 - 50 % [facility] ([place]) Blood 08/23/2024 8:04 AM CDT 08/23/2024 10:40 AM CDT us Clark Dunham MD LAB BLOOD ORDERABLES Final Re sult [facility] ([place]) 1 [facility] Department [place] [address] * (ABNORMAL) CBC with auto differential (08/23/2024 [...] ORDERABLES Fi nal Result Performing Organization Address City/[facility]/ZIP Co de Phone Number [facility] ([place]) 1 [facility] [place] [address] * (ABNORMAL) CBC with auto differential (08/23/2024 [...] RDW CV 13.9 11.1 - 14.9 % [facility] ([place]) RDW SD 49.6(H) 35.7 - 48.1 fL [facility] ([place]) NRBC abs 0.00 0.00 - 0.01 K/cumm [facility] ([place]) Blood 08/23/2024 8:04 AM CDT 08/23/2024 10:40 AM CDT us Clark Dunham MD LAB BLOOD ORDERABLES Final Re sult [facility] ([place]) 1 [facility] Department [place] [address] * (ABNORMAL) Albumin Creatinine Ratio, Urine (08/23/2024 8:04 AM CDT) Albumin Ur 68.0 mg/L Comment: Interpretive Data No reference range established. Current interpretive data was last revised 2018. Testing performed by: [facility], [address] [place] [address], [place]., [address] Creatinine Ur 140.5 mg/dL [facility] ([place]) Comment: Interpretive Data No reference range established. Current interpretive data was last revised 2018. Testing performed by: [facility], [address] [place] [address]., [address] Albumin Creatinine Ratio, Ur 48(H) 1 - 29 mg/g JOSEPH HARE ([place]) Comment:Testing performed by : [facility], [address] [place] [address]., [address] Urine 08/23/2024 8:04 AM CDT 08/23/2024 4:40 PM CDT Juan STONE LAB URINE ORDERABLES Fi nal Result JOSEPH HARE ([place]) 1 [facility] [place] [address] * Vitamin D 25 hydroxy (08/23/2024 8:04 AM CDT) Vitamin D 25-OH 35 30 - 80 ng/mL Blood 08/23/2024 8:04 AM CDT 08/23/2024 10:40 AM CDT Juan STONE LAB BLOOD ORDERABLES Fi nal Result Performing Organization Address City/[facility] Co de Phone Number JOSEPH HARE ([place]) 1 [facility] [place] [address] * (ABNORMAL) PTH (08/23/2024 8:04 AM CDT) PTH 78(H) 15 - 65 pg/mL Blood 08/23/2024 8:04 AM CDT 08/23/2024 10:40 AM CDT Juan STONE LAB BLOOD ORDERABLES Fi nal Result JOSEPH HARE ([place]) 1 [facility] [place] [address] * (ABNORMAL) PTH (08/23/2024 8:04 AM CDT) PTH 76(H) 15 - 65 pg/mL Blood 08/23/2024 8:04 AM CDT 08/23/2024 10:40 AM CDT us Clark Dunham MD LAB BLOOD ORDERABLES Final Re sult Performing Organization Address [facility] Co de Phone Number [facility] ([place]) 1 [place] [address] * Hemoglobin A1c (08/23/2024 8:04 AM CDT) Hgb A1C 5.6 4.0 - 5.6 % Estimated Average Glucose 114 mg/dL [facility] ([place]) Comment: The ADA recommends reporting an estimated Average Glucose (eAG) with all Hemoglobin A1c results using the equation derived from a study of 507 normal and diabetic adults. Minority populations were underrepresented and children were not included. (Diabetes Care 31:7956-8960, 2008). The eAG is not equivalent to a fasting glucose. Blood 08/23/2024 8:04 AM CDT 08/23/2024 10:40 AM CDT us Juan STONE LAB BLOOD ORDERABLES Fi nal Result Performing Organization Address [facility] Co de Phone Number [facility] ([place]) 1 [place] [address] * (ABNORMAL) Renal function panel (08/23/2024 8:04 AM CDT) Sodium 142 135 - 145 mmol/L Potassium, pl 4.7 3.3 - 4.9 mmol/L [facility] ([place]) Chloride 106 97 - 110 mmol/L [facility] ([place]) CO2 24 22 - 32 mmol/L [facility] ([place]) Anion gap 12 2 - 15 mmol/L [facility] ([place]) BUN 21 6 - 25 mg/dL [facility] ([place]) Creatinine 1.40(H) 0.80 - 1.30 mg/dL [facility] ([place]) Glucose 99 70 - 199 [...] 2022. Calcium 9.3 8.5 - 10.3 mg/dL JOSEPH HARE ([place]) Phosphorus, pl 3.3 2.3 - 4.5 mg/dL [facility] ([place]) Albumin 4.2 3.5 - 5.0 g/dL JO[facility]PH [facility] ([place]) Blood 08/23/2024 8:04 AM CDT 08/23/2024 10:40 AM CDT us Clark Dunham MD LAB BLOOD ORDERABLES Final Re sult JOSEPH HARE ([place]) 1 [facility] Department [place] [address] * Lipid panel (08/23/2024 8:04 AM CDT) [...] on 2017. Triglycerides 112 <=149 mg/dL JOSEPH HARE ([place]) Comment: Interpretive Data [...] on 2017. HDL 58 >=40 mg/dL JOSEPH Monterroso ([place]) Comment: Interpretive Data Ages < or = [...] NCEP Expert Panel. Circulation 2004;110:227 3. Kenton Heredia al. YESENIA Cardiol. 2020 September 09;5(5):540-548. doi: 10.1001/jamacardio.2020.0013 Current Interpretive Data was last revised on 2023. Non-HDL Cholesterol 94 mg/dL [facility] ([place]) Comment: Interpretive Data Ages < or [...] last revised on 2017. Chol/HDL ratio 3 [facility] ([place]) Blood 08/23/2024 8:04 AM CDT 08/23/2024 10:40 AM CDT us Juan STONE LAB BLOOD ORDERABLES Fi nal Result [facility] ([place]) 1 [facility] Department [place] [address] * (ABNORMAL) Comprehensive metabolic panel (08/23/2024 8:04 AM CDT) Sodium 144 135 - 145 mmol/L Potassium, pl 4.7 3.3 - 4.9 mmol/L [facility] ([place]) Chloride 107 97 - 110 mmol/L [facility] ([place]) CO2 24 22 - 32 mmol/L [facility] ([place]) Anion gap 13 2 - 15 mmol/L [facility] ([place]) BUN 21 6 - 25 mg/dL [facility] ([place]) Creatinine 1.39(H) 0.80 - 1.30 mg/dL [facility] ([place]) Glucose 99 70 - 199 mg/dL [facility] ([place]) Comment: Interpretive Data Fasting glucose [...] LAB BLOOD ORDERABLES Fi nal Result [facility] ([place]) [address] [place] [address] Department [place] [address] * TRANSTHORACIC ECHO (TTE) COMPLETE W DOPPLER/CF WO CONTRAST (08/19/2024 12:59 PM CDT) Anatomical Region Laterality Modality Ultrasound 08/19/2024 12:1 6 PM CDT Narrative 08/19/2024 4:14 PM CDT [address] [address] Echocardiogram Report Patient Name: JANE CHERRY : [...] Procedure Note Cezar Guillen MD - 08/19/[address] [address] Echocardiogram Report Patient Name: JANE CHERRY : 1940 Study Date: 08/19/2024 12:16:45 PM Gender: M Tech: AA Ref Provider: WOODROW MAYES Height(Cm): BSA: Weight(Kg): Quality: Good Order Provider: WOODORW MAYES PROCEDURES: Echocardiographic Report: Transthoracic echocardiogram with [...] Cezar Guillen MD 08/19/2024 4:13:58 PM CDT us Woodrow Mayes MD CV ECHO PROCEDURES Fin al Result * 48 HR Holter Monitor (08/03/2024 10:52 AM CDT) Anatomical Region Laterality Modality Electrocardiogra phy 08/03/2024 10:5 8 AM CDT Narrative 08/15/2024 4:21 PM CDT [address] [address] HOLTER MONITOR Patient Name: JANE CHERRY W [...] demonstrated. Electronically Signed By: Vince Mendez MD, [facility] 2024-08-15 4:07:29 PM CDT Procedure Note Vince Mendez MD - 08/15/[address] [place] [address] HOLTER MONITOR Patient Name: JANE CHERRY W [...] demonstrated. Electronically Signed By: Vince Mendez MD, [facility] 2024-08-15 4:07:29 PM CDT Woodrow Mayes MD CV CARDIAC SERVICES [place] OCEDURES Final Result * POCT INR (07/28/2024 [...] No Juan STONE POINT OF CARE TEST ORDPam SKINNER Final Result * (ABNORMAL) eGFR (07/26/2024 [...] was last reviewed 2021. Testing performed by: [facility] [place], [address] [facility], [place], [address] Blood 07/26/2024 12:4 0 PM CDT 07/26/2024 1:28 PM CDT us [place] Sidhu NP LAB BLOOD ORDERABLES F inal Result JOSEPH HARE ([place]) 1 [facility] Department [place] [address] * Differential, auto (07/26/2024 12:40 PM CDT) Neutrophil abs 5.9 1.5 - 6.5 K/cumm Comment:Testing performed by : [facility] [address], Medical Office [facility] [address], [place] [address] Imm gran abs 0.0 0.0 - 0.1 K/cumm [facility] ([place]) Comment:Testing performed by : [facility] [address], Medical Office [facility] [address], [place] [address] Lymphocyte abs 1.3 0.8 - 3.3 K/cumm [facility] ([place]) Comment:Testing performed by : [facility] [address], Medical Office [facility] [address], [place] [address] Monocyte abs 0.8 0.2 - 0.8 K/cumm [facility] ([place]) Comment:Testing performed by : [facility] [address], Medical Office [facility] [address], [place] [address] Eosinophil abs 0.2 0.0 - 0.5 K/cumm [facility] ([place]) Comment:Testing performed by : [facility] [address], Medical Office [facility] [address], [place] [address] Basophil abs 0.0 0.0 - 0.1 K/cumm [facility] ([place]) Comment:Testing performed by : [facility] [address], Medical Office [address], [place] [address] Neutrophil pct 71.1 % [facility] ([place]) Comment: Interpretive Data Percent cell count reference ranges are not reported, since discordance with absolute values may lead to misinterpretation of CBC data. Current Interpretive Data was last revised on 2022. Testing performed by: [facility] [address], Medical Office [address], [place] [address] Imm gran pct 0.1 % [facility] ([place]) Comment: Interpretive Data Percent cell count reference ranges are not reported, since discordance with absolute values may lead to misinterpretation of CBC data. Current Interpretive Data was last revised on 2022. Testing performed by: [facility] [address], Medical Office [address], [place] [address] Lymphocyte pct 15.6 % [facility] ([place]) Comment: Interpretive Data Percent cell count reference ranges are not reported, since discordance with absolute values may lead to misinterpretation of CBC data. Current Interpretive Data was last revised on 2022. Testing performed by: [facility] [address], Medical Office [address], [place] [address] Monocyte pct 9.8 % [facility] ([place]) Comment: Interpretive Data Percent cell count reference ranges are not reported, since discordance with absolute values may lead to misinterpretation of CBC data. Current Interpretive Data was last revised on 2022. Testing performed by: [facility] [address], Medical Office [address], [place] [address] Eosinophil pct 2.9 % [facility] ([place]) Comment: Interpretive Data Percent cell count reference ranges are not reported, since discordance with absolute values may lead to misinterpretation of CBC data. Current Interpretive Data was last revised on 2022. Testing performed by: [facility] [address], Medical Office [address], [place] [address] Basophil pct 0.5 % [facility] ([place]) Comment: Interpretive Data Percent cell count reference ranges are not reported, since discordance with absolute values may lead to misinterpretation of CBC data. Current Interpretive Data was last revised on 2022. Testing performed by: [facility] [address], Medical Office [facility] [address], [place] [address] Blood 07/26/2024 12:4 0 PM CDT 07/26/2024 12:40 PM CDT [place] Sidhu NP LAB BLOOD ORDERABLES F inal Result [facility] ([place]) 1 [facility] Department [place] [address] * Iron profile w/ IBC (07/26/2024 12:40 PM CDT) Iron 96 50 - 150 mcg/dL Comment:Testing performed by : [place], [address] TIBC 279 250 - 400 mcg/dL JOSEPH HARE ([place]) Comment:Testing performed by : [facility], [place], [address] Transferrin saturation 34 20 - 50 % JOSEPH HARE ([place]) Comment:Testing performed by : [place], [address] Blood 07/26/2024 12:4 0 PM CDT 07/26/2024 1:28 PM CDT [place] Sidhu NP LAB BLOOD ORDERABLES F inal Result [facility] ([place]) 1 [facility] Department [place] [address] * (ABNORMAL) CBC with auto differential (07/26/2024 12:40 PM CDT) WBC 8.3 3.8 - 9.9 K/cumm Comment:Testing performed by : [facility] [address], Medical Office [facility] [address], [place] [address] Hgb 12.3(L) 13.0 - 17.5 g/dL [facility] ([place]) Comment:Testing performed by : [facility] [address], Medical Office [address], [place] [address] Hct 37.2(L) 38.9 - 50.3 % [facility] ([place]) Comment:Testing performed by : [facility] [address], Medical Office [address], [place] [address] Plt 133(L) 150 - 400 K/cumm [facility] ([place]) Comment:Testing performed by : [facility] [address], Medical Office [facility] [address], [place] [address] MPV 10.9 9.1 - 12.3 fL [facility] ([place]) Comment:Testing performed by : [facility] [address], Medical Office [facility] [address], [place] [address] RBC 3.82(L) 4.30 - 5.80 M/cumm [facility] ([place]) Comment:Testing performed by : [facility] [address], Medical Office [facility] [address], [place] [address] MCV 97.4(H) 81.3 - 96.4 fL [facility] ([place]) Comment:Testing performed by : [facility] [address], Medical Office [facility] [address], [place] [address] MCH 32.2 27.1 - 33.3 pg [facility] ([place]) Comment:Testing performed by : [facility] [address], Medical Office [facility] [address], [place] [address] MCHC 33.1 32.3 - 35.7 g/dL [facility] ([place]) Comment:Testing performed by : [facility] [address], Medical Office [facility] [address], [place] [address] RDW CV 14.2 11.1 - 14.9 % [facility] ([place]) Comment:Testing performed by : [facility] [address], Medical Office [facility] [address], [place] [address] RDW SD 50.5(H) 35.7 - 48.1 fL [facility] ([place]) Comment:Testing performed by : [facility] [address], Medical Office [facility] [address], [place] [address] NRBC abs Not Measured 0.00 - 0.01 K/cumm [facility] ([place]) Comment:Testing performed by : [facility] [place], [address], Medical Office [facility] [address], [place] [address] Blood 07/26/2024 12:4 0 PM CDT 07/26/2024 12:40 PM CDT [place] Sidhu NP LAB BLOOD ORDERABLES F inal Result [facility] ([place]) 1 [facility] Department [place] [address] * Ferritin (07/26/2024 12:40 PM CDT) Pathologist [facility] [place] Ferritin 340 30 - 400 ng/mL Comment:Testing performed by : [place], [address] Blood 07/26/2024 12:4 0 PM CDT 07/26/2024 1:28 PM CDT [place] Sidhu NP LAB BLOOD ORDERABLES F inal Result Performing Organization Address City/[facility]/ZIP Co de Phone Number [facility] ([place]) 1 [facility] Department [place] [address] * (ABNORMAL) Comprehensive metabolic panel (07/26/2024 12:40 PM CDT) Sodium 139 135 - 145 mmol/L Comment:Testing performed by : [facility], [place], [address] Potassium, pl 5.4(H) 3.3 - 4.9 mmol/L [facility] ([place]) Comment:Testing performed by : [facility], [place], [address] Chloride 106 97 - 110 mmol/L [facility] ([place]) Comment:Testing performed by : [facility], [place], [address] CO2 24 22 - 32 mmol/L [facility] ([place]) Comment:Testing performed by : [facility] [place], [facility], [place], [address] Anion gap 9 2 - 15 mmol/L [facility] ([place]) Comment:Testing performed by : [facility] [place], [facility], [place], [address] BUN 21 6 - 25 mg/dL [facility] ([place]) Comment:Testing performed by : [facility], [place], [address] Creatinine 1.33(H) 0.80 - 1.30 mg/dL [facility] ([place]) Comment:Testing performed by : [facility], [place], [address] Glucose 89 70 - 199 mg/dL [facility] ([place]) [...] was last revised 2022. Testing performed by: [facility], [place], [address] Calcium 9.2 8.5 - 10.3 mg/dL [facility] ([place]) Comment:Testing performed by : [facility], [place], [address] Bilirubin, total 0.4 0.1 - 1.2 mg/dL [facility] ([place]) Comment:Testing performed by : [facility], [place], [address] Protein, pl 6.6 6.5 - 8.5 g/dL [facility] ([place]) Comment:Testing performed by : [facility], [place], [address] Albumin 4.1 3.5 - 5.0 g/dL [facility] ([place]) Comment:Testing performed by : [facility], [place], [address] Alk phos 70 40 - 130 Units/L [facility] ([place]) Comment:Testing performed by : [facility] [place], [facility], [place], [address] ALT 15 7 - 55 Units/L [facility] ([place]) Comment:Testing performed by : [facility] [place], [facility], [place], [address] AST 22 10 - 50 Units/L [facility] ([place]) Comment:Testing performed by : [facility] [place], [facility], [place], [address] Blood 07/26/2024 12:4 0 PM CDT 07/26/2024 1:28 PM CDT [place] Sidhu NP LAB BLOOD ORDERABLES F inal Result [facility] ([place]) 1 [facility] Department [place] [address] * ECG 12 lead (07/22/2024 11:13 AM CDT) Woodrow Mayes MD ECG ORDERABLES Final Result * CTA Abdominal Aorta And Bilateral Iliofemoral Runoff (04/10/2022 2:46 PM [employer]) Anatomical Region Laterality Modality Body Bilateral Computed Tomogra phy 04/10/2022 11:4 1 PM [employer] Narrative 04/10/2022 11:57 PM [employer] EXAM DESCRIPTION: CTA ABDOMINAL AORTA AND BILATERAL [...] common iliac arteries. 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 Graft [...] Job Yanes M.D. AR: ANGELO Report ID: [id number] Reading Location: [id number] Procedure Note Job Yanes MD - 04/11/2022 [...] common iliac arteries. 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 Graft [...] on image [id number]. A 2nd site on [id number]. Distal to this, numerous stenoses are present [...] Job Yanes M.D. AR: ANGELO Report ID: [id number] Reading Location: [place] [address] us Woodrow Mayes MD IMG CT PROCEDURES Dhara l Result * PSA screen (01/24/2022 10:42 AM CDT) PSA-Total 0.77 <=6.20 ng/mL [facility] ([place]) Comment: Interpretive Data AGE SEX REFERENCE INTERVAL [...] data last revised 21. Testing performed by: [facility], [address] [place] [address]., [address] Blood 01/24/2022 10:4 2 AM CDT 01/24/2022 3:26 PM CDT Narrative [facility] ([place]) - 01/24/2022 4:01 PM CDT fasting us Juan STONE LAB BLOOD ORDERABLES Fi nal Result [facility] ([place]) 1 [facility] Department [place] [address] * Diabetic Eye Exam (01/01/2022) us Generic External Data Provider HEALTH MAINTENANC E Final Result * COLONOSCOPY (02/23/2021 12:58 PM CDT) Anatomical Region Laterality Modality Other Narrative Procedure Note Petey Adams MD - 02/23/2021 12:58 PM CDT [facility] Patient Name: Jane Cherry Procedure Date: 02/23/2021 12:58PM Date of : 1940 Admit Type: Outpatient Age: 81 Gender: Male Attending MD: Petey Adams M.D. Room: [facility] ENDOSCOPY ROOM 2 Note Status: Finalized Patient [...] scope was passed under direct vision. TheColonoscope [id number] was introduced through the anus and advanced [...] 12:58 PM Procedure Code(s): --- Professional --- 68107, Colonoscopy, flexible; diagnostic, including collection of specimen(s) by brushing or washing, when performed (separateprocedure) Diagnosis Code(s): --- Professional --- D50.9, Iron deficiency anemia, unspecified K64.9, Unspecified hemorrhoids CPT copyright 2019 [employer]. All rights reserved. The codes documented in this report are preliminary and upon planer stone reviewmay be revised to meet current compliance requirements. 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 [employer] ADVANCE DIRECTIVE 12/05/2023 12:11 PM 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 Power of [employer] 11/24/2023 1:35 PM Advance Directives and Living Will 04/17/2021 Power of [employer] 04/17/2021 KAYLAH CHILDS * Full Code (Latest Code Status [...] 11:04 AM 02/23/2022 4:18 PM Care Teams Splitter Hand Relationship Specialty Start Date End Date Juan Ching PA [address] [facility] [address] [place] [address] PCP - General Internal Medicine 01/10/22 Clark Dunham MD [address] [facility] [address] [place] [address] Consulting Physician Nephrology 02/21/22 Ana Paula Schwartz, GOLF COURSE KEEPER [address] [facility] [address] [place] [address] Nurse Practitioner Medical Oncology 02/21/22 Woodrow Mayes MD [address] [facility] [address] [place] [address] Consulting Physician Cardiology 02/21/22 Mega Villagomez MD [address] [id number] Referring Physician Orthopedic Surgery 02/21/22 Maxwell Acuña MD [address] [address] Medical Oncologist/Hematologis t Hematology and Oncology 05/24/22 Cezar Guillen MD [address] [place] [address] Consulting Physician Cardiology 12/09/22 Ashok Walters MD [address] [place] [address] [address], [place] [address] Referring Physician Dermatology 08/04/23 Monica Doan MD [address] [place] [address] [address] [place] [address] Consulting Physician Sleep Medicine 08/09/24
== END 2024-10-12 11:04 | disposition home or self-care (01) ==
PROVIDERS: PCP Specialist; Visit Provider Specialist
DX: C44.629 Squamous cell carcinoma of skin of left upper limb, including shoulder (principal); C44.42 Squamous cell carcinoma of skin of scalp and neck
CPT/HCPCS: 88305